=== PATIENT | male | born 1975 | race Caucasian/White ===

== ENCOUNTER 2022-04-07 12:55 | Outpatient (CLI) | payer OTHER, SELFPAY ==
--- OUTSIDE RECORDS SUMMARY | 2022-04-07 13:02 | XMS_ITS | Encounter Summary ---
:1975 Author Organization [facility] Address [address] [place] [address] Care Team Providers Name Role Phone Unavailable Primary Care Provider Unavailable Reason for Visit Reason Onset Date Comments Outpatient COVID-19 Testing 01/23/2020 Encounter Details Date Type Department Care Team Description 01/23/2020 External Outreach Department of Pascual Morataya Infect ion Upper Internal Medicine in J, D.O. Respiratory ([place], [place] [address] Dx) [address] [place] [phone] Social History Tobacco Use Types Packs/Day Years Used Date Smoking Tobacco: Never Assessed Sex Assigned at Date Recorded Not on file documented as of this encounter Progress Notes Hilary Ibarra, JesusP.N. - 01/23/2020 9:15 AM CDT Encounter created for the drive-through COVID-19 testing. documented in this encounter Plan of Treatment Not on filedocumented as of this encounter Procedures Procedure Name Priority Date/Time Associated Diagnosis Comme nts SARS CORONAVIRUS-2 Routine 01/23/2020 10:31 AM Infection Upper Results for this RNA, V CDT Respiratory procedure are i n the results section. documented in this encounter Results SARS Coronavirus-2 RNA, V Symptomatic (01/23/2020 10:31 AM CDT) [facility] Method Time Signature SARS-CoV-2 Swab, 01/23/2020 MKTO Specimen Nasopharynx 8:27 PM CDT Source SARS CoV-2 Undetected Undetected 01/23/2020 SULLY RNA, TMA 8:27 PM CDT Comment: SARS-CoV-2 RNA absent. This result does not rule out COVID-19 in the patient, as the sensitivity of the test depends o n the timing of the specimen collection and the quality of the specim en. Result should be correlated with patient's history and clinical presentat ion. ----ADDITIONAL INFORMATION---- This test is performed using the Aptima SARS-CoV-2 assay ([employer] which has received Emergency Use Authori zation (EUA) by the U.S. Food and Drug Administration. Fact sheets for this Emergency Use Autho rization (EUA) assay can be found at the following links: For Healthcare Providers: https://www.[employer] a.gov/media/013594/download For Patients: https://www.fda.gov/media/ 629797/download Specimen Anatomical Collection Method Collection Time Receive d Time (Source) Location / / Volume Laterality Varies 01/23/2020 10:31 01/23/2020 2:14 (Nasopharynx) AM CDT PM CDT Pascual Morataya D.O. LAB MICROBIOLOGY - GENERAL O RDERABLES Performing Organization Address City/State/ZIP Code Phon e Number [facility]- [address] [place] [id number] [place] [address] [place] [address] System in [address] documented in this encounter Visit Diagnoses Diagnosis Infection Upper Respiratory - Primary documented in this encounter Additional Health Concerns Infection Onset Date Last Indicated Resolved Time COVID19 Pending 01/23/2020 01/23/2020 01/23/2020 8:27 PM CDT documented as of this encounter
--- OUTSIDE RECORDS SUMMARY | 2022-04-07 13:02 | XMS_ITS | Encounter Summary ---
:1975 Author Organization [facility] Address [address] [place] [address] Care Team Providers Name Role Phone Unavailable Primary Care Provider Unavailable Reason for Visit Reason Comments COVID Inquiry Encounter Details Date Type Department Care Team Description 04/27/2020 Clinical Communication Central Appointment PRINCESS Toscano Office in [facility] [address] [place] [address] Social History Tobacco Use Types Packs/Day Years Used Date Smoking Tobacco: Never Assessed Sex Assigned at Date Recorded Not on file documented as of this encounter Miscellaneous Notes Telephone Encounter - Makeda Hernandez - 04/27/2020 1:26 PM SENIOR INDUSTRIAL ENGINEER COVID DOS/PASS Screening What is the patient requesting?: COVID-19 Testing Only (End screening - follow local process) Plan: Endpoint recommendation: Testing indicated, sent patient to [facility] located at [address] [place] [address]. The entrance is on the north side of the building. A staff member will noah you access to get inside. You must call [phone] for an appointment time.Testing hours are Daily 9 am to 7 pm and Please avoid using public transportation per CDC recommendation. If you do not have personal transportation please self-quarantine until a personal transportation option is available. *Reminder if sending patient for testing in T or [facility], an email notification is required. OR INDUSTRIAL ENGINEER documented in this encounter Plan of Treatment Not on filedocumented as of this encounter Visit Diagnoses Not on filedocumented in this encounter
--- OUTSIDE RECORDS SUMMARY | 2022-04-07 13:02 | XMS_ITS | Encounter Summary ---
:1975 Author Organization [facility] Address [address] [place] [address] Care Team Providers Name Role Phone Unavailable Primary Care Provider Unavailable Encounter Details Date Type Department Care Team Description 04/05/2020 Clinical Communication Central Appointment Line, Covid Help Office in [place], [place] [address] [place] [address] Social History Tobacco Use Types Packs/Day Years Used Date Smoking Tobacco: Never Assessed Sex Assigned at Date Recorded Not on file documented as of this encounter Plan of Treatment Not on filedocumented as of this encounter Visit Diagnoses Not on filedocumented in this encounter
--- OUTSIDE RECORDS SUMMARY | 2022-04-07 13:02 | XMS_ITS | Encounter Summary ---
:1975 Author Organization [facility] Address [address] [place] [address] Care Team Providers Name Role Phone Unavailable Primary Care Provider Unavailable Reason for Visit Reason Comments COVID Nurse Line Encounter Details Date Type Department Care Team Description 04/27/2020 Clinical Communication Division of Sheila Us Nurse Anuja [facility] L, R.NMargot [facility] [place] [address] [facility], in [facility] [phone] [place] [phone] [address] [facility] (Work) [place] [address] Social History Tobacco Use Types Packs/Day Years Used Date Smoking Tobacco: Never Assessed Sex Assigned at Date Recorded Not on file documented as of this encounter Miscellaneous Notes Telephone Encounter - Sheila Us REdd - 04/27/2020 1:33 PM CST COVID-19 Nurse Line Screening ASSESSMENT COVID 19 Screening Have you had close contact with a person who has a LABORATORY CONFIRMED case of COVID-19 in the past14 days?: No - Continue screening. Over the last 48 hours have you had any of the following symptoms that are not related to an existing condition?: New sore throat, New myalgias (muscle aches) Do you have any urgent symptoms?: None (Continue Screening) Has the patient had COVID19 diagnosed with a PCR test in the last 45 days? : No (End Screening- Patient Meets Criteria for Testing PLAN Endpoint recommendation: Screening positive, testing indicated, advised to be swabbed for COVID-19, sent to [facility] located at [address] [place] [address]. The entrance is on the north side of the building. A staff member will noah you access to get inside. You must call [phone] for an appointment time.Testing hours are Daily 9 am to 7 pm and Please avoid using public transportation per CDC recommendation. If you do not have personal transportation please self- quarantine until a personal transportation option is available. Care Points provided: STANDARD PRECAUTIONS FOR ALL PATIENTS: Wash hands often with soap and water for at least 20 seconds, especially after blowing your nose, coughing, sneezing, or having been in a public place. If soap and water aren't available, use a hand director enterprise data architecture that contains at least 60% alcohol. Avoid close contact with anyone who may be exhibiting respiratory symptoms such as coughing and sneezing. Avoid touching your eyes, nose and mouth. Clean and disinfect frequently touched surfaces daily. Cover your mouth and nose with a cloth face cover when around others or in public. The cloth face cover is not a substitute for social distancing. Continue to keep about 6 feet between yourself andothers. Monitor for symptoms. Do not take your temperature within 30 minutes of exercise. If your test or screen is negative and new symptoms develop please contact your provider if it has been greaterthan 72 hours since you were tested. Educational Resource: https://www.cdc.gov/coronavirus/2019-ncov/ dtsechd-vgivkgy-icfd/index.html RECOMMENDATIONS TESTING CRITERIA IS MET: Stay home except to get medical care. Quarantine for 14 days if exposed to someone with a laboratory confirmed case of COVID-19 exposure regardless of your test results. Avoid public areas and public transportation. Separate yourself from other people and stay in a specific sick room if possible. Wear a cloth face covering, over your nose and mouth if youmust be around other people even at home). Cover your nose and mouth when coughing or sneezing. Contact employer/occupational health department to notify them that they are being tested. Seek emergent care if any of the following occur: 1) Trouble breathing, 2) Bluish lips or face, 3) Persistent pain or pressure in the chest, 4) Newly confused or unable to stay alert and awake. Notify appropriate care provider if any new or worsening symptoms. You may need re-testing if it has been greater than 72 hours after a negative COVID- 19 test result. Education Resources: https://www.cdc.gov/coronavirus/2019- ncov/hz-mxd-egw-sick/dcmmv-euqh-iwbr.html SELF CARE FOR ALL PATIENTS: Take breaks from watching, reading, or listening to news stories. Make time to unwind. Try to do some other activities you enjoy. Connect with others. Be creative in keepingconnected with loved ones, especially those at high risk. Try healthy coping strategies such as meditation, relaxation, exercise, healthy eating habits, and avoid alcohol and drugs. Education: Patient/caregiver able to teach back Patient agreeable to plan of care: Yes The following references were used: [facility] novel coronavirus (COVID- 19) resources Nursing judgement MATIC PRESS HAND documented in this encounter Plan of Treatment Not on filedocumented as of this encounter Visit Diagnoses Not on filedocumented in this encounter
--- OUTSIDE RECORDS SUMMARY | 2022-04-07 13:02 | XMS_ITS | Clinical Summary ---
:1975 Author Organization [facility] Address [address] [place] [address] Care Team Providers Name Role Phone Phi Steward MD Primary Care Provider Source Comments You are receiving this document as you are listed as the primary care provider,follow-up provider, or the patient has been referred to you for consultation.This is in compliance with the Medicare and Medicaid EHR Incentive Program,which states Providers who transition their patient to another setting of careor provider of care or refers their patient to another provider of care shouldprovide summarycare record for each transition of care or referral. [employer] [employer] Allergies No known active allergies Medications Medication Sig Dispensed Refills Start Date End Date Status traZODone (DESYREL) 50 Take 0.5-2 Tabs by 60 Tab 11 03/18/20 16 Active MG tablet mouth at bedtime as needed for Sleep. Take 30 min. before bed. OK to give 90 day rx with 3 refills. Additional Information Patient not taking. Reported on 08/03/2017 sildenafil (REVATIO) 20 MG Take 1 to 5 tabs qday 30 Tab 7 0 07/12/2017 Active tablet prn. DO NOT SEND A PRIOR AUTH. FOR THIS MEDICINE. busPIRone (BUSPAR) 10 MG tablet Take 1 Tab by mouth 60 Tab 11 08/03/2017 Active two times daily as needed. 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 Elevated blood pressure reading without diagnosis of h ypertension 11/05/2004 Overview: LW Onset: [id number] ; Elevated Blood Pressure Immunizations Name Administration Dates Next Due Influenza IIV4 (Quadrivalent) 0.5mL (31482) 08/03/2017, 11/2015 Td 01/14/2002 Tdap 03/18/2016 Social History Tobacco Use Types Packs/Day Years Used Date Smoking Tobacco: Never Smokeless Tobacco: Never Alcohol Use Standard Drinks/Week Comments Yes 0 (1 standard drink = 0.6 oz pure alcoho l) on weekends 5 drinks Sex Assigned at Date Recorded Not on file Last Filed Vital Signs Vital Sign Reading Time Taken Comments Blood Pressure 134/88 08/03/2017 8:56 AM TRADEMARK PARALEGAL Pulse 80 08/03/2017 8:56 AM [facility]ARK [facility] Temperature 36.7 ??C (98.1 ??F) 11/25/2012 4:11 PM CDT Respiratory Rate 16 11/25/2012 4:11 PM CDT Oxygen Saturation - - Inhaled Oxygen Concentration - - Weight 114.6 kg (252 lb 9.6 oz) 08/03/2017 8:56 AM TR[facility]ARK [facility] Height 185.4 cm (6' 1) 08/03/2017 8:56 AM [facility]ARK [facility] Body Mass Index 33.33 08/03/2017 8:56 AM [facility]EMARK PARALEGAL Plan of Treatment Health Maintenance Due Date Last Done Comments Colon Cancer Screening Plan 1975 Due Hep C Screening (Preventive 1975 Services) HepB (1) 1975 COVID-19 Vaccine (#1) 05/09/1976 HIV Screening (Preventive 1991 Services) Adult Preventive Visit 08/03/2018 08/03/2017, 03/18/2016 Influenza (#1) 2022 08/03/2017, 03/18/2016 Cholesterol 08/03/2022 08/03/2017, 04/01/2016, 11/02/2004 Zoster/Shingles (1 of 2) 11/06/2025 DTaP/Tdap/Td (2 - Tdap) 03/18/2026 03/18/2016, 01/14/2002 HepA Aged Out No longer eligib le based on patient's age to complete this to pic Hib Aged Out No longer eligib le based on patient's age to complete this to pic IPV (Polio) Aged Out No longer eligib le based on patient's age to complete this to pic MCV4 Aged Out No longer eligib le based on patient's age to complete this to pic Pneumococcal Aged Out No longer eligib le based on patient's age to complete this to pic Insurance Payer Benefit Subscriber ID Effective Phone Address Type Plan / Dates Group [facility] [id number] 2018-Pres [phone] [phone] [place] [address] Andres Alvarez Personal/Famil Self 1975 [address] [phone] Tigre [place] (Work) [address] Care Teams Transformation Lead Relationship Specialty Start Date End Date Phi Steward MD PCP - General 09/14/[address] [place] [address] [place] [address]
--- OUTSIDE RECORDS SUMMARY | 2022-04-07 13:02 | XMS_ITS | Clinical Summary ---
:1975 Author Organization [facility] Address [address] [place] [address] Care Team Providers Name Role Phone Unavailable Primary Care Provider Unavailable Source Comments Patient records contain information from all sites at [facility]. For routine questions regarding patient records, call [phone] during business hours, M-F 8:00 AM - 5:00 PM Central Time. Record requests for emergency care only can be directed to [phone] at any time.[facility] Social History Tobacco Use Types Packs/Day Years Used Date Smoking Tobacco: Never Assessed Sex Assigned at Date Recorded Not on file Plan of Treatment Health Maintenance Due Date Last Done Comments CT Colonography 1975 Cologuard 1975 Colonoscopy 1975 Colorectal Cancer Screening 1975 Creatinine Level 1975 FIT 1975 Fasting Glucose for 1975 Diabetes Screening HIV Screening 1975 Hepatitis B Vaccines (1 of 1975 3 - 3-dose series) Hepatitis C Screening 1975 Lipid (Cholesterol) 1975 Screening Potassium Level 1975 Sodium Level 1975 COVID-19 Vaccine (3 - 06/06/2021 04/11/2021, 09/04/2020 Booster for Luis series) Depression Screening 06/13/2021 (Annual PHQ-2) Influenza Vaccine (#1) 2022 04/01/2021, 04/08/2020, 04/10/2019, Additional history exists DTaP,Tdap,and Td Vaccines 03/18/2026 03/18/2016, 01/14/2002 (2 - Td or Tdap) Pneumococcal vaccine (0-64 Aged Out No lo nger eligible years) based on patient 's age to complete this topic Insurance Payer Benefit Plan / Subscriber ID Effective Phone Address T ype Group Dates PREFERREDONE PREFERREDONE [id number] 2019-Pre [phone] PPO ADMINISTRATIVE ADMINISTRATIVE sent [phone] SERVICES SERVICES [place] [phone]
--- OUTSIDE RECORDS SUMMARY | 2022-04-07 13:02 | XMS_ITS | Encounter Summary ---
:1975 Author Organization [facility] Address [address], [place] [address] Care Team Providers Name Role Phone Phi Steward MD Primary Care Provider Encounter Details Date Type Department Care Team Description 08/04/2017 Notes/Orders Phi Craven, Erect ile dysfunction, Medicine unspecified erectile [address] Ng dysfunction type [place] [address] [place] (Primary Dx) [phone] [address] Social History Tobacco Use Types Packs/Day Years Used Date Smoking Tobacco: Never Smokeless Tobacco: Never Alcohol Use Standard Drinks/Week Comments Yes 0 (1 standard drink = 0.6 oz pure alcoho l) on weekends 5 drinks Sex Assigned at Date Recorded Not on file documented as of this encounter Plan of Treatment Not on filedocumented as of this encounter Visit Diagnoses Diagnosis Erectile dysfunction, unspecified erecti le dysfunction type - Primary documented in this encounter Care Teams Tuck Pointer Helper Relationship Specialty Start Date End Date Phi Steward MD PCP - General 09/14/[address] [place] [address] [address] documented as of this encounter
--- OUTSIDE RECORDS SUMMARY | 2022-04-07 13:02 | XMS_ITS | Encounter Summary ---
:1975 Author Organization [facility] Address [address] [place] [address] Care Team Providers Name Role Phone Unavailable Primary Care Provider Unavailable Encounter Details Date Type Department Care Team Description 04/27/2020 Admin Visit Department of Family Medicine, [address] [address] [facility] [phone] Social History Tobacco Use Types Packs/Day Years Used Date Smoking Tobacco: Never Assessed Sex Assigned at Date Recorded Not on file documented as of this encounter Plan of Treatment Not on filedocumented as of this encounter Visit Diagnoses Not on filedocumented in this encounter Additional Health Concerns Infection Onset Date Last Indicated Resolved Time COVID19 Pending 04/27/2020 04/27/2020 04/28/2020 11:09 PM ACCORDION TUNER documented as of this encounter
--- OUTSIDE RECORDS SUMMARY | 2022-04-07 13:02 | XMS_ITS | Encounter Summary ---
:1975 Author Organization [facility] Address [address] [place] [address] Care Team Providers Name Role Phone Unavailable Primary Care Provider Unavailable Reason for Visit Reason Onset Date Comments Outpatient COVID-19 Testing 04/27/2020 Encounter Details Date Type Department Care Team Description 04/27/2020 External Outreach Department of Family Martina Sanabria Infection Upper Medicine, Eitan Vazquez APRN, Respirato ry (Primary Clinic, in [place], Sindy, M.S .N. Dx) [place] [address] [address] [facility] [address] [place], [place] [phone] Social History Tobacco Use Types Packs/Day Years Used Date Smoking Tobacco: Never Assessed Sex Assigned at Date Recorded Not on file documented as of this encounter Progress Notes Martina Sanabria APRN, C.NMilan, M.S.N. - 04/27/2020 1:53 PM CST Encounter created for the drive-through COVID-19 testing. AREA NETWORK SYSTEMS ADMINISTRATOR documented in this encounter Plan of Treatment Not on filedocumented as of this encounter Procedures Procedure Name Priority Date/Time Associated Comments Diagnosis SARS CORONAVIRUS 2 Routine 04/27/2020 3:56 PM Res ults for this PCR DETECT, V WIDE AREA NETWORK SYSTEMS ADMINISTRATOR procedure are in the results section. documented in this encounter Results SARS Coronavirus 2 RNA Detection (04/27/2020 3:56 PM WIDE AREA NETWORK SYSTEMS ADMINISTRATOR) [facility] Method Time Signature SARS-CoV-2 Swab, 04/30/2020 [facility] Specimen Nasopharynx 2:16 AM WIDE AREA NETWORK SYSTEMS ADMINISTRATOR Source SARS-CoV-2 Undetected Undetected 04/30/2020 [facility] RNA by PCR 2:16 AM WIDE AREA NETWORK SYSTEMS ADMINISTRATOR Comment: SARS-CoV-2 RNA absent. This result does not rule out COVID-19 in the patient, as the sensitivity of the test depends o n the timing of the specimen collection and the quality of the specim en. Result should be correlated with patient's history and clinical presentat ion. ----ADDITIONAL INFORMATION---- This PCR test was performed using the BeQuan SARS-CoV-2 assay ([employer] on the kayleigh [employer] System under emergency use authorization (EUA) by the U.S. Food and Drug Administ ration. Fact sheets for this assay can be found at the following links: For Healthcare Providers: https://www.[employer] a.gov/media/998028/download For Patients: https://www.fda.gov/media/ 826258/download Specimen (Source) Anatomical Collection Method Collection Time Re ceived Time Location / / Volume Laterality Varies 04/27/2020 3:56 PM WIDE AREA NETWORK SYSTEMS ADMINISTRATOR Narrative [facility] - 04/30/2020 2:16 AM WIDE AREA NETWORK SYSTEMS ADMINISTRATOR Specimen Information: Specimen ID: [id number] Specimen Type: Varies Specimen Collection Start Date: 020 ??3:56 PM Specimen ID: [id number] Specimen Type: Varies Specimen Collection Start Date: 020 ??8:42 AM Specimen Received Date: 04/29/2020 ??8: 42 AM Martina Sanabria APRN CMargotNMilan, M.S.N. LAB MICROBIOLOGY - GENERAL ORDERABLES Performing Organization Address City/State/ZIP Code Phon e Number [facility] [address] [place] [address] [place] [address] Laboratory Medicine and Pathology [address] [place] [address] Dr. MANCUSO documented in this encounter Visit Diagnoses Diagnosis Infection Upper Respiratory - Primary documented in this encounter Additional Health Concerns Infection Onset Date Last Indicated Resolved Time COVID19 Pending 04/27/2020 04/27/2020 04/28/2020 11:09 PM WIDE AREA NETWORK SYSTEMS ADMINISTRATOR documented as of this encounter
--- OUTSIDE RECORDS SUMMARY | 2022-04-07 13:02 | XMS_ITS | Encounter Summary ---
:1975 Author Organization [facility] Address [address] [place] [address] Care Team Providers Name Role Phone Unavailable Primary Care Provider Unavailable Reason for Visit Reason Comments COVID Nurse Line Encounter Details Date Type Department Care Team Description 04/05/2020 Clinical Communication Division of Shira Oseguera ID Nurse Line [facility] R, R.N. [facility] [place] [address] [facility] in [facility] [phone] [place] [phone] [address] [facility] (Work) [place] [address] Social History Tobacco Use Types Packs/Day Years Used Date Smoking Tobacco: Never Assessed Sex Assigned at Date Recorded Not on file documented as of this encounter Miscellaneous Notes Telephone Encounter - Shira Oseguera R, R.N. - 04/05/2020 9:50 AM CDT COVID-19 Nurse Line Screening ASSESSMENT COVID 19 Screening Have you had close contact with a person who has a LABORATORY CONFIRMED case of COVID-19 in the past14 days?: No - Continue screening. In the last 48 hours have you had any of the following symptoms?: New headache Do you have any urgent symptoms?: None (Continue Screening) Has the patient had COVID19 diagnosed with a PCR test in the last 90 days? : No (End Screening- Patient Meets Criteria for Testing PLAN Endpoint recommendation: Screening positive, testing indicated, advised to be swabbed for COVID-19, sent to [facility] located [address] to back of the clinic; cannot access from main parking lot. Testing hours are M-F 10 am to 5 pm and Sat-Sun 9 am to 2 pm. When you arrive stay in your car and someone will direct you. , If it is currently after hours, please report to the testing site when it is next open. and Please avoid using public transportation per CDC recommendation.If you do not have personal transportation please self-quarantine until a personal transportation option is available. Care Points provided: STANDARD PRECAUTIONS FOR ALL PATIENTS: Wash hands often with soap and water for at least 20 seconds, especially after blowing your nose, coughing, sneezing, or having been in a public place. If soap and water aren't available, use a hand non destructive testing inspector that contains at least 60% alcohol. Avoid [...] since you were tested. Educational Resource: https://www.cdc.gov/coronavirus/2019-ncov/ rsinrya-oviuwlv-jajb/index.html RECOMMENDATIONS TESTING CRITERIA IS MET: Stay home [...] COVID- 19 test result. Education Resources: https://www.cdc.gov/coronavirus/2019- ncov/at-iwp-cwh-sick/jebgd-ofmb-sppu.html SELF CARE FOR ALL PATIENTS: Take breaks [...] care: Yes The following references were used: [facility] novel coronavirus (COVID- 19) resources CDC web site https://www.cdc.gov/coronavirus/2019-ncov/summary.html Nursing judgement documented in this encounter Plan of Treatment Not on filedocumented as of this encounter Visit Diagnoses Not on filedocumented in this encounter
--- OUTSIDE RECORDS SUMMARY | 2022-04-07 13:02 | XMS_ITS | Encounter Summary ---
:1975 Author Organization [facility] Address [address], [place] [address] Care Team Providers Name Role Phone Phi Steward MD Primary Care Provider Reason for Visit Reason Comments Refill hydroCHLOROthiazide (ORETIC) 25 MG tablet [Pharmacy Med Name: HYDROCHLOROTHIAZIDE 25MG TAB S] Encounter Details Date Type Department Care Team Description 09/18/2018 Refill Phi Craven, Refil l (hydroCHLOROthiazide Medicine (ORETIC) [address] MG [address] [[facility] [place] [address] [facility] HYDROCHLOROTHIAZIDE 25MG [phone] [id number] TABS]) Social History Tobacco Use Types Packs/Day Years Used Date Smoking Tobacco: Never Smokeless Tobacco: Never Alcohol Use Standard Drinks/Week Comments Yes 0 (1 standard drink = 0.6 oz pure alcoho l) on weekends 5 drinks Sex Assigned at Date Recorded Not on file documented as of this encounter Nursing Notes Shruthi Zhou - 09/19/2018 10:48 AM CDT PRINTED appointment reminder letter sent ERT Shiloh Kapoor RN - 09/18/2018 6:38 PM CDT OFFICE APPOINTMENT NEEDED Please notify patient to schedule an appointment within 30 days. Requested Prescriptions Pending Prescriptions Disp Refills ??? hydroCHLOROthiazide (ORETIC) 25 MG tablet [Pharmacy Med Name: HYDROCHLOROTHIAZIDE 25MG TABS] 90 Tablet 0 Sig: TAKE ONE TABLET BY MOUTH EVERY DAY Interface, Out Surescripts Prov Query - 09/18/2018 5:02 PM CDT hydroCHLOROthiazide (ORETIC) 25 MG tablet [Pharmacy Med Name: HYDROCHLOROTHIAZIDE 25MG TABS] Medication started: 06/18/2014 Last ordered by PHI STEWARD J: 06/15/2018 (95 days ago) QTY: 90, Refills: 0, Sig: take 1 tablet by mouth daily. (changed but equivalent) -> Refill x 3 months (courtesy refill. overdue for an office visit, Cr check, K check and Na check) Last qualifying visit: 08/03/2017 (with PHI STEWARD) Next scheduled visit: None SBP: 134 mm Hg on 08/03/2017 DBP: 88 mm Hg on 08/03/2017 Cr: 1.04 mg/dL on 08/03/2017 Na: 140 mEq/L on 08/03/2017 K: 3.7 mEq/L on 08/03/2017 PATIENT IS DUE FOR: - CR (Sent to [facility]) - K (Sent to [facility]) - NA (Sent to [facility]) Powered by [employer], Reference: [id number], 09/18/2018 5:02:51 PM CDT, Pool: NITO PRIMARY CARE REFILL ([id number]) documented in this encounter Plan of Treatment Not on filedocumented as of this encounter Visit Diagnoses Not on filedocumented in this encounter Care Teams Tube Buffer Relationship Specialty Start Date End Date Phi Steward MD PCP - General 09/14/10 [address] [place] [id number] documented as of this encounter
--- OUTSIDE RECORDS SUMMARY | 2022-04-07 13:02 | XMS_ITS | Encounter Summary ---
:1975 Author Organization [facility] Address [address] [place] [address] Care Team Providers Name Role Phone Unavailable Primary Care Provider Unavailable Reason for Visit Reason Onset Date Comments Outpatient COVID-19 Testing 04/05/2020 Encounter Details Date Type Department Care Team Description 04/05/2020 External Outreach Department of Pascual Morataya Infect ion Upper Internal Medicine in J, D.O. Respiratory ([place], [place] [address]) [address] [place] [phone] Social History Tobacco Use Types Packs/Day Years Used Date Smoking Tobacco: Never Assessed Sex Assigned at Date Recorded Not on file documented as of this encounter Progress Notes Andree Henriquez R.N. - 04/05/2020 10:08 AM CDT Encounter created for the drive-through COVID-19 testing. documented in this encounter Plan of Treatment Not on filedocumented as of this encounter Procedures Procedure Name Priority Date/Time Associated Diagnosis Comme nts SARS CORONAVIRUS-2 Routine 04/05/2020 11:25 AM Infection Upper Results for this RNA, V CDT Respiratory procedure are i n the results section. documented in this encounter Results SARS Coronavirus-2 RNA, V Symptomatic (04/05/2020 11:25 AM CDT) [facility] Method Time Signature SARS-CoV-2 Swab, 04/06/2020 MKTO Specimen Nasopharynx 6:43 PM CDT Source SARS CoV-2 Undetected Undetected 04/06/2020 SULLY RNA, TMA 6:43 PM CDT Comment: SARS-CoV-2 RNA absent. This result does not rule out COVID-19 in the patient, as the sensitivity of the test depends o n the timing of the specimen collection and the quality of the specim en. Result should be correlated with patient's history and clinical presentat ion. ----ADDITIONAL INFORMATION---- This test is performed using the Aptima SARS-CoV-2 assay ([employer] which has received Emergency Use Authori zation (EUA) by the U.S. Food and Drug Administration. Fact sheets for this Emergency Use Autho rization (EUA) assay can be found at the following links: For Healthcare Providers: https://www.[employer] a.gov/media/318491/download For Patients: https://www.fda.gov/media/ 454042/download Specimen Anatomical Collection Method Collection Time Receive d Time (Source) Location / / Volume Laterality Varies 04/05/2020 11:25 04/05/2020 5:57 (Nasopharynx) AM CDT PM CDT Pascual Morataya D.O. LAB MICROBIOLOGY - GENERAL O RDERABLES Performing Organization Address City/State/ZIP Code Phon e Number [facility]- [address] [place] [phone] [place] [address] [place] [address] [address] documented in this encounter Visit Diagnoses Diagnosis Infection Upper Respiratory - Primary documented in this encounter Additional Health Concerns Infection Onset Date Last Indicated Resolved Time COVID19 Pending 04/05/2020 04/05/2020 04/06/2020 6:44 PM CDT documented as of this encounter
--- OUTSIDE RECORDS SUMMARY | 2022-04-07 13:02 | XMS_ITS | Encounter Summary ---
:1975 Author Organization [facility] Address [address] [place] [address] Care Team Providers Name Role Phone Unavailable Primary Care Provider Unavailable Encounter Details Date Type Department Care Team Description 10/07/2020 Orders Only [facility] PCP TH Sa caitlin Mendes M.D. [address] [place], [place] [phone] (Wo rk) Social History Tobacco Use Types Packs/Day Years Used Date Smoking Tobacco: Never Assessed Sex Assigned at Date Recorded Not on file documented as of this encounter Plan of Treatment Not on filedocumented as of this encounter Visit Diagnoses Not on filedocumented in this encounter
--- OUTSIDE RECORDS SUMMARY | 2022-04-07 13:02 | XMS_ITS | Encounter Summary ---
:1975 [facility] Address [address], [place] [address] Care Team Providers Name Role Phone Phi Steward MD Primary Care Provider Encounter Details Date Type Department Care Team Description 09/18/2018 Refill Order [facility] Phi Champagne MD [address] [facility] [place] [address] [place] [id number] (Wo rk) Social History Tobacco Use Types Packs/Day Years Used Date Smoking Tobacco: Never Smokeless Tobacco: Never Alcohol Use Standard Drinks/Week Comments Yes 0 (1 standard drink = 0.6 oz pure alcoho l) on weekends 5 drinks Sex Assigned at Date Recorded Not on file documented as of this encounter Nursing Notes Jo England - 09/19/2018 9:54 AM CDT Labs to be addressed at future visit. Interface, Out Surescripts Prov Query - 09/18/2018 5:02 PM CDT SCHEDULE THE FOLLOWING: - CR BY: Now (Due as of 07/29/2018 for hydroCHLOROthiazide (ORETIC) 25 MG tablet) - K BY: Now (Due as of 07/29/2018 for hydroCHLOROthiazide (ORETIC) 25 MG tablet) - NA BY: Now (Due as of 07/29/2018 for hydroCHLOROthiazide (ORETIC) 25 MG tablet) - LAST QUALIFYING VISIT WITH PHI STEWARD: 08/03/2017 - NEXT SCHEDULED VISIT: None - NEXT LAB APPOINTMENT: None Powered by [employer], Reference: [id number], 09/18/2018 5:02:51 PM CDT, Pool: NITO PRIMARY CARE REFILL ([id number]) documented in this encounter Plan of Treatment Not on filedocumented as of this encounter Visit Diagnoses Diagnosis Encounter for long-term (current) use of medications - Primary Encounter for long-term (current) use of other medications documented in this encounter Care Teams Solar/Renewable Energy Sales Relationship Specialty Start Date End Date Phi Steward MD PCP - General 09/14/[address] [place] [address] documented as of this encounter
--- OUTSIDE RECORDS SUMMARY | 2022-04-07 13:02 | XMS_ITS | Encounter Summary ---
:1975 [facility] Address [address] [place] [address] Care Team Providers Name Role Phone Phi Steward MD Primary Care Provider Reason for Visit Reason Onset Date Comments Refill 06/15/2018 hydroCHLOROthiazide (ORETIC) 25 MG tablet Encounter Details Date Type Department Care Team Description 06/15/2018 Refill [facility] Phi Steward, Refil l Medicine (hydroCHLOROthiazide [address] (ORETIC) 25 MG tablet) [place] [address] [place] [phone] (Wo rk) Social History Tobacco Use Types Packs/Day Years Used Date Smoking Tobacco: Never Smokeless Tobacco: Never Alcohol Use Standard Drinks/Week Comments Yes 0 (1 standard drink = 0.6 oz pure alcoho l) on weekends 5 drinks Sex Assigned at Date Recorded Not on file documented as of this encounter Nursing Notes Mari Lennon RN - 06/15/2018 1:53 PM CST Renewed medication per medication refill protocol. Requested Prescriptions Pending Prescriptions Disp Refills hydroCHLOROthiazide (ORETIC) 25 MG tablet 90 Tablet 0 Sig: Take 1 Tablet by mouth daily. [place] [employer] Interface, Out Surescripts Prov Query - 06/15/2018 11:09 AM CST hydroCHLOROthiazide (ORETIC) 25 MG tablet Medication started: 06/18/2014 Last ordered by PHI STEWARD: 08/03/2017 (316 days ago) QTY: 90, Refills: 3, Sig: take 1 tab by mouth daily. (changed but equivalent) -> Refill x 3 months (until due for an office visit, Cr check, K check and Na check) Last qualifying visit: 08/03/2017 (with PHI STEWARD) Next scheduled visit: None SBP: 134 mm Hg on 08/03/2017 DBP: 88 mm Hg on 08/03/2017 Cr: 1.04 mg/dL on 08/03/2017 Na: 140 mEq/L on 08/03/2017 K: 3.7 mEq/L on 08/03/2017 Powered by [employer], Reference: [id number], 06/15/2018 11:09:03 AM Bharath RODRIGUEZ: PN REFILL WIZARD ADMIN ([id number]) Phi Warren - 06/15/2018 11:08 AM CST Medications - Refill Request (able to re-order) Name of prescribing clinician: Phi Steward MD Additional comments (related to the above concern): Pt is totally out of medication For this refill, patient would like it filled at the pharmacy listed in Meds & Orders. (Verify the pharmacy patient would like to use for this request is highlighted in blue in Pharmacy Selection under Meds & Orders) If there are questions regarding your request, is it okay to leave a detailed message on your voicemail? Yes (Advise caller that the PN call back number will end with [phone] or unknown) (Advise caller of turn around time is 2 business days for standard refills and 2 to 5 business days for controlled refills) Please route to: Refill Pool (P [phone]) [facility] ONLY (P [phone]) [place] [employer] documented in this encounter Plan of Treatment Not on filedocumented as of this encounter Visit Diagnoses Not on filedocumented in this encounter Care Teams Director Of Cardiology Relationship Specialty Start Date End Date Phi Steward MD PCP - General 09/14/10 [address] [place] [address] documented as of this encounter
--- OUTSIDE RECORDS SUMMARY | 2022-04-07 13:03 | XMS_ITS | Encounter Summary ---
:1975 Author Organization [facility] Address [address], [place] [address] Care Team Providers Name Role Phone Phi Steward MD Primary Care Provider Encounter Details Date Type Department Care Team Description 02/18/2017 Lab Visit Damien marinelli Chest pain, unspecified [address] type [place] [id number] Social History Tobacco Use Types Packs/Day Years [...] Name Priority Date/Time Associated Diagnosis Comme nts CREATININE / GFR Routine 02/18/2017 9:27 AM Chest pain, Resul ts for this CDT unspecified type procedure a re in the results section. COMPLETE BLOOD Routine 02/18/2017 9:27 AM Chest pain, Results for this COUNT-W/DIFF CDT unspecified type procedure a re in the results section. DIFFERENTIAL Routine 02/18/2017 9:27 AM Results f or this CDT procedure are i n the results section. TSH, SENSITIVE (WITH Routine 02/18/2017 9:27 AM Chest pain, R esults for this REFLEX) CDT unspecified type procedure a re in the results section. ALT (SGPT) Routine 02/18/2017 9:27 AM Chest pain, Results f or this CDT unspecified type procedure a re in the results section. documented in this encounter Results Differential (02/18/2017 9:27 AM CDT) athologist Signature Absolute 5.4 1.8 - 8.0 PN SOFT Neutrophils k/cmm Absolute 1.9 1.1 - 4.0 PN SOFT Lymphocytes k/cmm Absolute 0.4 0.2 - 0.8 PN SOFT Monocytes k/cmm Absolute 0.1 0.0 - 0.5 PN SOFT Eosinophils k/cmm Absolute 0.0 0.0 - 0.2 PN SOFT Basophils k/cmm Specimen Anatomical Collection Method Collection Time Receive d Time (Source) Location / / Volume Laterality 02/18/2017 9:27 AM 7 9:27 CDT AM CDT Narrative PN SOFT - 02/18/2017 9:45 AM CDT Performed at [address] [address] CLIA number [id number] Phi Steward MD LAB_1 Performing Organization Address City[facility] Phon e Number PN SOFT [address] [place] [address] TSH with Free T4 (if TSH Abnormal) (02/18/2017 9:27 AM CDT) athologist Signature Thyroid 2.65 0.30 - PN SOFT Stimulating 4.50 Hormone uIU/mL Specimen Anatomical Collection Method Collection Time Receive d Time (Source) Location / / Volume Laterality 02/18/2017 9:27 AM 7 2:56 CDT PM CDT Narrative PN SOFT - 02/18/2017 4:11 PM CDT Performed at [place] [address] [place] [address] CLIA number [id number] Phi Steward MD LAB_1 Performing Organization Address City[facility] Phon e Number PN SOFT [address] [place] [address] Complete Blood Count-W/Diff (02/18/2017 9:27 AM CDT) athologist Signature White Blood Cell 7.8 3.8 - 11.0 PN SOFT Count k/cmm Red Blood Cell 5.67 4.20 - PN SOFT Count 5.90 m/cmm Hemoglobin 16.7 13.4 - PN SOFT 17.5 g/dL Hematocrit 47.4 39.0 - PN SOFT 51.0 % Mean Corpuscular 83.6 80.0 - PN SOFT Volume 100.0 fL RDW 12.6 11.0 - PN SOFT 15.0 % Platelet Count 272 140 - 450 PN SOFT k/cmm Specimen Anatomical Collection Method Collection Time Receive d Time (Source) Location / / Volume Laterality 02/18/2017 9:27 AM 7 9:27 CDT AM CDT Narrative PN SOFT - 02/18/2017 9:45 AM CDT Performed at [facility], [address] [place] [address] CLIA number [id number] Phi Steward MD LAB_1 Performing Organization Address [facility] Phon e Number PN SOFT [address] [place] [address] ALT (SGPT) (02/18/2017 9:27 AM CDT) [facility] gist Method Time Signature Alanine 32 9 - 55 PN SOFT Aminotransferase U/L Specimen Anatomical Collection Method Collection Time Receive d Time (Source) Location / / Volume Laterality 02/18/2017 9:27 AM 7 2:56 CDT PM CDT Narrative PN SOFT - 02/18/2017 3:39 PM CDT Performed at [place] [address] [place] [address] CLIA number [id number] Phi Steward MD LAB_1 Performing Organization Address [facility] Phon e Number PN SOFT [address] [place] [address] Creatinine / GFR (02/18/2017 9:27 AM CDT) P athologist Signature Creatinine Serum 0.98 0.73 - PN SOFT 1.18 mg/dL Est GFR >60 >60 PN SOFT Am mL/min/1.7 3m2 Est GFR Non-Afr >60 >60 PN SOFT Am mL/min/1.7 3m2 Comment: Normal>60, moderate decrease 30 - 59, se yecenia decrease 15 - 29, renal failure <15 mL/min/1.73 m2 NOTE: ??Choose the eGFR result above ignacio ropriate for the race of the patient. Specimen Anatomical Collection Method Collection Time Receive d Time (Source) Location / / Volume Laterality 02/18/2017 9:27 AM 7 2:56 CDT PM CDT Narrative PN SOFT - 02/18/2017 3:39 PM CDT Performed at [facility], [address] [place] [address] [place] number [id number] Phi Steward MD LAB_1 Performing Organization Address City/State/ZIP Code Phon e Number SOFT [address] [place] [address] [phone] documented in this encounter Visit Diagnoses Diagnosis Chest pain, unspecified type documented in this encounter Care Teams Power Barker Relationship Specialty Start Date End Date Phi Steward MD PCP - General 09/14/10 [address] [place] [id number] documented as of this encounter
--- OUTSIDE RECORDS SUMMARY | 2022-04-07 13:03 | XMS_ITS | Encounter Summary ---
:1975 [facility] Address [address] [place] [address] Care Team Providers Name Role Phone Phi Steward MD Primary Care Provider Reason for Visit Reason Onset Date Comments Refill 07/08/2016 hydrochlorothiazide (ORETIC) 25 MG tablet Encounter Details Date Type Department Care Team Description 07/08/2016 Refill [facility] Phi Steward, Refil l Medicine (hydrochlorothiazide [address] (ORETIC) 25 MG tablet) [place] [address] [place] [phone] (Wo rk) Social History Tobacco Use Types Packs/Day Years Used Date Smoking Tobacco: Never Smokeless Tobacco: Never Alcohol Use Standard Drinks/Week Comments Yes 0 (1 standard drink = 0.6 oz pure alcoho l) on weekends 5 drinks Sex Assigned at Date Recorded Not on file documented as of this encounter Nursing Notes Ned Kowalski, RN - 07/10/2016 11:03 AM CST Further assistance needed to complete refill request Reason: Current order has a 180 day end date Next Steps: Review pended order for accuracy. Sign if appropriate. Document if appt. or lab is needed for further refills. Route to Frontline. pool Requested Prescriptions Pending Prescriptions Disp Refills ??? hydrochlorothiazide (ORETIC) 25 MG tablet 90 Tab 2 Sig: Take 1 Tab by mouth daily. OPERATOR Interface, Out Silverio Prov Query - 07/08/2016 10:54 AM CST hydrochlorothiazide (ORETIC) 25 MG tablet Medication started: 06/18/2014 Last ordered by PHI STEWARD: 03/18/2016 (112 days ago) QTY: 90, Refills: 3, Sig: take 1 tab by mouth daily for 180 days. indications: pn: (changed) -> This medication may not have been authorized by the requested provider. -> The patient is requesting a renewal from a different pharmacy. -> Due to an unreadable sig, manually ensure the patient is due for a renewal. -> The requested sig has changed from the last order. -> Refill x 9 months (until due for an office visit) -> Calculate quantity and refills manually. They could not be estimated due to missing or unreadable information. Last qualifying visit: 03/18/2016 (with PHI STEWARD) Next scheduled visit: None SBP: 154 mm Hg on 03/18/2016 DBP: 105 mm Hg on 03/18/2016 Cr: 1.07 mg/dL on 04/01/2016 Na: 141 mEq/L on 04/01/2016 K: 3.7 mEq/L on 04/01/2016 Powered by [employer], Reference: [id number], 07/08/2016 10:54:09 AM JENNIFER, Pool: NITO PRIMARY CAREREFILL ([id number]) OPERATOR documented in this encounter Plan of Treatment Not on filedocumented as of this encounter Visit Diagnoses Not on filedocumented in this encounter Care Teams Hvac Specialist Relationship Specialty Start Date End Date Phi Steward MD PCP - General 09/14/[address] [place] [address] documented as of this encounter
--- OUTSIDE RECORDS SUMMARY | 2022-04-07 13:03 | XMS_ITS | Encounter Summary ---
:1975 Author Organization [facility] Address [address] [place] [address] Care Team Providers Name Role Phone Phi Steward MD Primary Care Provider Reason for Visit Reason Comments Refill hydroCHLOROthiazide (ORETIC) 25 MG tablet [Pharmacy Med Name: HYDROCHLOROTHIAZIDE TAB 25MG ] Encounter Details Date Type Department Care Team Description 03/21/2017 Refill Phi Craven, Refil sundar (hydroCHLOROthiazide Medicine (ORETIC) [address] [[place]: [place] [address] [facility] [place] HYDROCHLOROTHIAZIDE TAB [phone] [id number] 25MG]) Social History Tobacco Use Types Packs/Day Years Used Date Smoking Tobacco: Never Smokeless Tobacco: Never Alcohol Use Standard Drinks/Week Comments Yes 0 (1 standard drink = 0.6 oz pure alcoho l) on weekends 5 drinks Sex Assigned at Date Recorded Not on file documented as of this encounter Nursing Notes Gilbert Quiroz RN - 03/21/2017 9:47 AM CDT Renewed medication per medication refill protocol. Requested Prescriptions Pending Prescriptions Disp Refills hydroCHLOROthiazide (ORETIC) 25 MG tablet [Pharmacy Med Name: HYDROCHLOROTHIAZIDE TAB 25MG] 90 Tab 0 Sig: TAKE 1 TABLET DAILY Interface, Out Surescripts Prov Query - 03/21/2017 12:34 AM CDT hydroCHLOROthiazide (ORETIC) 25 MG tablet [Pharmacy Med Name: HYDROCHLOROTHIAZIDE TAB 25MG] Medication started: 06/18/2014 Last ordered by PHI STEWARD: 07/12/2016 (252 days ago) QTY: 90, Refills: 2, Sig: take 1 tab by mouth daily. (changed but equivalent) -> Refill x 3 months (until due for a(n) K check and Na check) Last qualifying visit: 02/18/2017 (with PHI STEWARD) Next scheduled visit: None SBP: 144 mm Hg on 02/18/2017 DBP: 90 mm Hg on 02/18/2017 Cr: 0.98 mg/dL on 02/18/2017 Na: 141 mEq/L on 04/01/2016 K: 3.7 mEq/L on 04/01/2016 PATIENT IS DUE FOR: - K (Sent to [facility]) - NA (Sent to [facility]) Powered by [email or web address], Reference: [id number], 03/21/2017 12:34:15 AM CDT, Pool: NITO PRIMARY CAREREFILL ([id number]) documented in this encounter Plan of Treatment Not on filedocumented as of this encounter Visit Diagnoses Not on filedocumented in this encounter Care Teams Waffle Machine Operator Relationship Specialty Start Date End Date Phi Steward MD PCP - General 09/14/[address] [place] [address] documented as of this encounter
--- OUTSIDE RECORDS SUMMARY | 2022-04-07 13:03 | XMS_ITS | Encounter Summary ---
:1975 [facility] Address [address] [place] [address] Care Team Providers Name Role Phone Phi Steward MD Primary Care Provider Encounter Details Date Type Department Care Team Description 04/01/2016 Lab Visit Damien marinelli Screening for hyperlipidemia ; [address] Screening for diabetes lloyd burt; [place] [address] Essential hypertension [phone] Social History Tobacco Use Types Packs/Day Years [...] Name Priority Date/Time Associated Diagnosis Comme nts LIPID PANEL AND Routine 04/01/2016 7:14 Screening for Results for this DIRECT LDL(IF AM CDT hyperlipidemia procedure ar e in NEEDED) the results section. CREATININE / GFR Routine 04/01/2016 7:14 Essential hypertensio n Results for this AM CDT procedure are i n the results section. ELECTROLYTE PANEL Routine 04/01/2016 7:14 Essential hypertensi on Results for this AM CDT procedure are i n the results section. GLUCOSE - FASTING > Routine 04/01/2016 7:14 Screening for diab etes Results for this 8 HRS FASTING AM CDT mellitus procedure are in the results section. documented in this encounter Results Electrolyte Panel (04/01/2016 7:14 AM CDT) P athologist Signature Sodium 141 136 - 145 PN SOFT mmol/L Potassium 3.7 3.5 - 5.2 PN SOFT mmol/L Chloride 106 98 - 109 PN SOFT mmol/L CO2 27 22 - 31 PN SOFT mmol/L Specimen Anatomical Collection Method Collection Time Receive d Time (Source) Location / / Volume Laterality 04/01/2016 7:14 AM 6 9:20 CDT AM CDT Narrative PN SOFT - 04/01/2016 9:38 AM CDT [address] [id number] Phi Steward MD LAB_1 Performing Organization Address [facility] Phon e Number PN SOFT [address] [place] [address] Creatinine (04/01/2016 7:14 AM CDT) athologist Signature Creatinine Serum 1.07 0.73 - PN SOFT 1.18 mg/dL Est [...] Time (Source) Location / / Volume Laterality 04/01/2016 7:14 AM 6 9:20 CDT AM CDT Narrative PN SOFT - 04/01/2016 9:38 AM CDT Performed at [address] [address] CLIA number [id number] Phi Steward MD LAB_1 Performing Organization Address [facility] Phon e Number PN SOFT [address] [place] [address] (ABNORMAL) Glucose (04/01/2016 7:14 AM CDT) athologist Signature Lab Glucose 102 (H) 60 - 100 PN SOFT mg/dL Specimen Anatomical Collection Method Collection Time Receive d Time (Source) Location / / Volume Laterality 04/01/2016 7:14 AM 6 9:20 CDT AM CDT Narrative PN SOFT - 04/01/2016 9:38 AM CDT Performed at [address] [address] CLIA number [id number] Phi Steward MD LAB_1 Performing Organization Address [facility] Phon e Number PN SOFT [address] [place] [address] (ABNORMAL) Lipid Panel - LDLD If Trig High (04/01/2016 7:14 AM CDT) [facility] Method Time Signature Cholesterol 197 0 - 199 PN SOFT mg/dL Triglycerides 208 (H) 4 - 149 PN SOFT mg/dL HDL Cholesterol 43 >39 mg/dL PN SOFT Cholesterol/HDL 4.6 PN SOFT Ratio Screen LDL Calculated 112 19 - 130 PN SOFT mg/dL Length Of Fast 11.0 PN SOFT Specimen Anatomical Collection Method Collection Time Receive d Time (Source) Location / / Volume Laterality 04/01/2016 7:14 AM 6 9:20 CDT AM CDT Narrative PN SOFT - 04/01/2016 9:38 AM CDT Performed at [address] [address] CLIA number [id number] Phi Steward MD LAB_1 Performing Organization Address [facility] Phon e Number PN SOFT [address] [place] [address] documented in this encounter Visit Diagnoses Diagnosis Screening for hyperlipidemia Screening for lipoid disorders Screening for diabetes mellitus Essential hypertension (HRC) Unspecified essential hypertension documented in this encounter Care Teams Senior Merchandiser Relationship Specialty Start Date End Date Phi Steward MD PCP - General 09/14/[address] [place], [place] [address] documented as of this encounter
--- OUTSIDE RECORDS SUMMARY | 2022-04-07 13:03 | XMS_ITS | Encounter Summary ---
:1975 Author Organization [facility] Address [address] [address] Care Team Providers Name Role Phone Phi Steward MD Primary Care Provider Encounter Details Date Type Department Care Team Description 03/21/2017 Refill Order [facility] Phi Champagne MD [address] Pending [facility] To [facility] [place] [address] [place] [id number] (Wo rk) Social History Tobacco Use Types Packs/Day Years Used Date Smoking Tobacco: Never Smokeless Tobacco: Never Alcohol Use Standard Drinks/Week Comments Yes 0 (1 standard drink = 0.6 oz pure alcoho l) on weekends 5 drinks Sex Assigned at Date Recorded Not on file documented as of this encounter Nursing Notes Jo England - 03/21/2017 9:49 AM CDT Labs to be addressed at future visit. Interface, Out Surescripts Prov Query - 03/21/2017 12:34 AM CDT SCHEDULE THE FOLLOWING: - K BY: 03/27/2017 (Coming due as of 03/27/2017 for hydrochlorothiazide (ORETIC) 25 MG tablet) - NA BY: 03/27/2017 (Coming due as of 03/27/2017 for hydrochlorothiazide (ORETIC) 25 MG tablet) - LAST QUALIFYING VISIT WITH PHI STEWARD: 02/18/2017 - NEXT SCHEDULED VISIT: None - NEXT LAB APPOINTMENT: None Powered by [employer], Reference: [id number], 03/21/2017 12:34:16 AM CDT, Pool: NITO PRIMARY CAREREFILL ([id number]) documented in this encounter Plan of Treatment Not on filedocumented as of this encounter Visit Diagnoses Diagnosis Encounter for long-term (current) use of medications - Primary Encounter for long-term (current) use of other medications documented in this encounter Care Teams Dump Motor Operator Relationship Specialty Start Date End Date Phi Steward MD PCP - General 09/14/10 [address] [place] [address] documented as of this encounter
--- OUTSIDE RECORDS SUMMARY | 2022-04-07 13:03 | XMS_ITS | Encounter Summary ---
:[address] [facility] [facility] Address [address] [place] [address] Care Team Providers Name Role Phone Phi Steward MD Primary Care Provider Reason for Visit Reason Comments Refill Encounter Details Date Type Department Care Team Description 08/21/2015 Refill [facility] Phi Champagne MD Refill [address] [place] [address] [place] [address] [phone] (Wo rk) Social History Tobacco Use Types Packs/Day Years Used Date Smoking Tobacco: Never Assessed Sex Assigned at Date Recorded Not on file documented as of this encounter Nursing Notes User, Refillwizard - 08/22/2015 11:00 PM CST VIAGRA 100 mg tablet [Pharmacy Med Name: VIAGRA 100 MG TABLET] - MEDICATION STARTED: 06/18/2014 - LAST REFILLED ON: 06/18/2014, QTY: 6, Refills: 11, Sig: take 0.5-1 tablets by mouth daily as needed for erectile dysfunction. typically effective for 4 to 6 hrs. (changed) - WARNING: This medication may not have been authorized by the requested provider. - REFILL: 6 months (if warnings resolved; manual update required, due to unreadable sig) - RATIONALE: This refill should last until the patient is due for an office visit. - LAST QUALIFYING VISIT WITH PHI STEWARD: 02/21/2015 - NEXT SCHEDULED VISIT: None Powered by [employer], Reference: [id number], 08/21/2015 3:48:41 PM FUR REMODELER, Pool: NITO PRIMARY CARE REFILL ([id number]) REMODELER Pat Kapoor, RN - 08/22/2015 11:00 PM CST Renewed medication per medication refill protocol. Requested Prescriptions Signed Prescriptions Disp Refills ??? sildenafil citrate (VIAGRA) 100 mg tablet 6 tablet 5 Sig: Take 0.5-1 tablets by mouth as needed for Erectile Dysfunction. Authorizing Provider: PHI STEWARD Ordering User: PAT KAPOOR REMODELER documented in this encounter Plan of Treatment Not on filedocumented as of this encounter Visit Diagnoses Not on filedocumented in this encounter Care Teams Permaculture Designer Relationship Specialty Start Date End Date Phi Steward MD PCP - General 09/14/[address] [place] [address] [place] [address] documented as of this encounter
--- OUTSIDE RECORDS SUMMARY | 2022-04-07 13:03 | XMS_ITS | Encounter Summary ---
:1975 Author Organization [facility] Address [address], [place] [address] Care Team Providers Name Role Phone Phi Steward MD Primary Care Provider Reason for Visit Procedure/Equipment (Routine) - Incomplete Specialty Diagnoses / Procedures Referred By Contact Refer red To Contact Diagnoses Chest pain, unspecified type Phi Steward MD Procedures XR Chest [address] [place] [address] Referral ID Status Reason Start Date Expiration Date Visits V isits Requested Authorized [id number] Incomplete 02/18/2017 05/20/2018 1 1 Encounter Details Date Type Department Care Team Description 02/18/2017 Imaging [facility] Phi Steward, Chest pain, unspecified [address] Jeff[address] Parker MD type [place] [address] [address] [phone] [place] [address] (Wo rk) Social History Tobacco Use Types [...] Name Priority Date/Time Associated Diagnosis Comme nts XR CHEST 2 VIEWS Routine 02/18/2017 9:04 AM Chest pain, Resul ts for this CDT unspecified type procedure a re in the results section. documented in this encounter Results XR Chest 2 Views (02/18/2017 9:04 AM CDT) Anatomical Region Laterality Modality Chest, Lung Computed Radiography Specimen (Source) Anatomical Collection Method Collection Time Re ceived Time Location / / Volume Laterality 02/18/2017 8:58 AM CDT Narrative 02/18/2017 9:29 AM CDT COMPARISON: ??None. FINDINGS: ??Two views were obtained. ??T he lungs and costophrenic angles are clear. ??Heart size and pulmonary vascularity are within normal limits. ??There is no evidence of pneumothorax or pleural effusion. Bony thorax is unremarkable. Procedure Note Mat Foote MD - 02/18/2017 COMPARISON: None. FINDINGS: Two views were obtained. The l ungs and costophrenic angles are clear. Heart size and pulmonary vascularity are within normal limits. There is no evidence of pneumothorax or pleural effusion. Bony thorax is unremarkable. Phi Steward MD RAD GD documented in this encounter Visit Diagnoses Diagnosis Chest pain, unspecified type documented in this encounter Care Teams Measurement Department Chief Clerk Relationship Specialty Start Date End Date Phi Steward MD PCP - General 09/14/[address] [place] [address] documented as of this encounter
--- OUTSIDE RECORDS SUMMARY | 2022-04-07 13:03 | XMS_ITS | Encounter Summary ---
:1975 Author [facility] Address [address], [place] [address] Care Team Providers Name Role Phone Phi Steward MD Primary Care Provider Reason for Visit Reason Comments Questions For The Nurse pt out of his BP med which h as Encounter Details Date Type Department Care Team Description 05/27/2017 Telephone [facility] Phi Steward, [facility] ions For The Nurse Medicine MD (pt out of his BP med [address] which has ) [place] [address] [place] [phone] [address] Social History Tobacco Use Types Packs/Day Years Used Date Smoking Tobacco: Never Smokeless Tobacco: Never Alcohol Use Standard Drinks/Week Comments Yes 0 (1 standard drink = 0.6 oz pure alcoho l) on weekends 5 drinks Sex Assigned at Date Recorded Not on file documented as of this encounter Nursing Notes Judy Jerry RN - 05/27/2017 11:37 AM CST Refill request for HCTZ. Qualifying OV 02/18/17. Labs last done 04/01/16 Creatinine was checked at the 02/18/17 OV Orders placed for Sodium and Potassium. Patient aware he has to have done prior to next refill. Meets criteria for RN to do 90 day supply. Since patient is out, he also requests small supply to local pharmacy. Requested Prescriptions Signed Prescriptions Disp Refills ??? hydroCHLOROthiazide (ORETIC) 25 MG tablet 90 Tab 0 Sig: Take 1 Tab by mouth daily. Authorizing Provider: PHI STEWARD Ordering User: JUDY JERRY IMEDIA SERVICES COORDINATOR Víctor Barnard - 05/27/2017 11:22 AM CST Pt calling request to speak to nurse for direction as pt out of his BP med which has and pharmacy will not be able to get to him for approx. 2 weeks. Pt needs meds but does not know what to do.Please advise. IMEDIA SERVICES COORDINATOR documented in this encounter Plan of Treatment Not on filedocumented as of this encounter Visit Diagnoses Diagnosis Elevated blood pressure reading without diagnosis of hypertension - Primary documented in this encounter Care Teams Career Guidance Technician Relationship Specialty Start Date End Date Phi Steward MD PCP - General 09/14/[address] [place], [place] [address] documented as of this encounter
--- OUTSIDE RECORDS SUMMARY | 2022-04-07 13:03 | XMS_ITS | Encounter Summary ---
:1975 Author Organization [facility] Address [address] [address] Care Team Providers Name Role Phone Phi Steward MD Primary Care Provider Encounter Details Date Type Department Care Team Description 08/03/2017 Lab Visit [facility] Hyperglycemia; [address] Hyperlipidemia, unspecified hyperlipidemia type; [place] [address] Essential hypertension [phone] Social History Tobacco Use Types Packs/Day Years [...] Diagnosis Comme nts LIPID PANEL AND Routine 08/03/2017 9:53 Hyperlipidemia, Result s for this DIRECT LDL(IF AM NATIONAL SALES unspecified procedure are in NEEDED) hyperlipidemia type the resu lts section. CREATININE / GFR Routine 08/03/2017 9:53 Essential hypertensio n Results for this AM NATIONAL SALES procedure are i n the results section. ELECTROLYTE PANEL Routine 08/03/2017 9:53 Essential hypertensi on Results for this AM NATIONAL SALES procedure are i n the results section. ALT (SGPT) Routine 08/03/2017 9:53 Hyperlipidemia, Results f or this AM NATIONAL SALES unspecified procedure are i n hyperlipidemia type the resu lts section. GLUCOSE - FASTING > Routine 08/03/2017 9:53 Hyperglycemia Resu lts for this 8 HRS FASTING AM NATIONAL SALES procedure are in the results section. documented in this encounter Results Creatinine / GFR (08/03/2017 9:53 AM NATIONAL SALES) athologist Signature Creatinine Serum 1.04 0.73 - PN SOFT 1.18 mg/dL Est [...] Time (Source) Location / / Volume Laterality 08/03/2017 9:53 AM 8 NATIONAL SALES 12:44 PM NATIONAL SALES Narrative PN SOFT - 08/03/2017 2:12 PM NATIONAL SALES Performed at [address] [address] CLIA number [id number] Phi Steward MD LAB_1 Performing Organization Address City/[facility] Phon e Number PN SOFT [address] [place] [address] Electrolyte Panel (08/03/2017 9:53 AM NATIONAL SALES) athologist Signature Sodium 140 136 - 145 PN SOFT mmol/L Potassium 3.7 3.5 - 5.2 PN SOFT mmol/L Chloride 103 98 - 109 PN SOFT mmol/L CO2 27 22 - 31 PN SOFT mmol/L Specimen Anatomical Collection Method Collection Time Receive d Time (Source) Location / / Volume Laterality 08/03/2017 9:53 AM 8 NATIONAL SALES 12:44 PM NATIONAL SALES Narrative PN SOFT - 08/03/2017 2:12 PM NATIONAL SALES Performed at [address] [address] CLIA number [id number] Phi Steward MD LAB_1 Performing Organization Address [facility] Phon e Number PN SOFT [address] [place] [address] ALT (SGPT) (08/03/2017 9:53 AM NATIONAL SALES) [facility] Method Time Signature Alanine 30 9 - 55 PN SOFT Aminotransferase U/L Specimen Anatomical Collection Method Collection Time Receive d Time (Source) Location / / Volume Laterality 08/03/2017 9:53 AM 8 NATIONAL SALES 12:44 PM NATIONAL SALES Narrative PN SOFT - 08/03/2017 2:12 PM NATIONAL SALES Performed at [address] [address] CLIA number [id number] Phi Steward MD LAB_1 Performing Organization Address [facility] Phon e Number PN SOFT [address] [place] [address] (ABNORMAL) Lipid Panel and Direct LDL(If Needed) (08/03/2017 9:53 AM NATIONAL SALES) [facility] Method Time Signature Cholesterol 232 (H) 0 - 199 PN SOFT mg/dL Triglycerides 176 (H) 4 - 149 PN SOFT mg/dL HDL Cholesterol 43 >39 mg/dL PN SOFT Cholesterol/HDL 5.4 PN SOFT Ratio Screen LDL Calculated 154 (H) 19 - 130 PN SOFT mg/dL Non HDL Chol, Calc 189 (H) 0 - 159 PN SOFT mg/dL Length Of Fast 12.0 PN SOFT Specimen Anatomical Collection Method Collection Time Receive d Time (Source) Location / / Volume Laterality 08/03/2017 9:53 AM 8 NATIONAL SALES 12:44 PM NATIONAL SALES Narrative PN SOFT - 08/03/2017 2:12 PM NATIONAL SALES Performed at [address] [address] CLIA number [id number] Phi Steward MD LAB_1 Performing Organization Address [facility] Phon e Number PN SOFT [address] [place] [address] Glucose - Fasting > 8 Hrs Fasting (08/03/2017 9:53 AM NATIONAL SALES) athologist Signature Lab Glucose 98 70 - 100 PN SOFT mg/dL Comment: The stated glucose range is for the fast ing state. Non-fasting glucose range is 70-180 mg/d L Specimen Anatomical Collection Method Collection Time Receive d Time (Source) Location / / Volume Laterality 08/03/2017 9:53 AM 8 NATIONAL SALES 12:44 PM NATIONAL SALES Narrative PN SOFT - 08/03/2017 2:12 PM NATIONAL SALES Performed at [facility], [address] [place] [address] [place] number [id number] Phi Steward MD LAB_1 Performing Organization Address City/State/ZIP Code Phon e Number PN SOFT [address] [place] [address] documented in this encounter Visit Diagnoses Diagnosis Hyperglycemia Other abnormal glucose Hyperlipidemia, unspecified hyperlipidem ia type (HRC) Essential hypertension (HRC) Unspecified essential hypertension documented in this encounter Care Teams Hat Forming Machine Feeder Relationship Specialty Start Date End Date Phi Steward MD PCP - General 09/14/10 [address] [place] [address] documented as of this encounter
--- OUTSIDE RECORDS SUMMARY | 2022-04-07 13:03 | XMS_ITS | Encounter Summary ---
:1975 [facility] Address [address], [place] [address] Care Team Providers Name Role Phone Phi Steward MD Primary Care Provider Reason for Referral Therapies (Routine) - Closed Specialty Diagnoses / Procedures Referred By Contact Refer red To Contact Diagnoses Hip pain, right Phi Steward MD [address] [place] [address] Referral ID Status Reason Start Date Expiration Date Visits Requ ested Visits Authorized [id number] Closed 08/03/2017 10/02/2017 1 1 Scheduling Instructions Your provider has recommended an appoint ment with [facility]. You may call [phone] to schedule your a ppointment. We suggest you call your health insurance company about your coverage an d benefits for this appointment. WARE CONFIGURATION MANAGER Reason for Visit Reason Comments Annual Exam fasting Encounter Details Date Type Department Care Team Description 08/03/2017 Office Visit Phi Cravenu lt exam (Primary Dx); Dara Vazquez MD Hyperglycemia; [address] Jeffry Ng Hyperlipidemia, unspecified hyperlipidem ia type; [place] [address] [place] Essential hypertension; [phone] [id number] Anxiety; [phone] Hip pain, right ; (Work) Decreased libido Social History Tobacco Use Types Packs/Day Years Used Date Smoking Tobacco: Never Smokeless Tobacco: Never Alcohol Use Standard Drinks/Week Comments Yes 0 (1 standard drink = 0.6 oz pure alcoho l) on weekends 5 drinks Sex Assigned at Date Recorded Not on file documented as of this encounter Last Filed Vital Signs Vital Sign Reading Time Taken Comments Blood Pressure 134/88 08/03/2017 8:56 AM SOFTWARE CONFIGURATION MANAGER Pulse 80 08/03/2017 8:56 AM SOFTWARE CONFIGURATION MANAGER Temperature - - Respiratory Rate - - Oxygen Saturation - - Inhaled Oxygen Concentration - - Weight 114.6 kg (252 lb 9.6 oz) 08/03/2017 8:56 AM SOFTWARE CONFIGURATION MANAGER Height 185.4 cm (6' 1) 08/03/2017 8:56 AM SOFTWARE CONFIGURATION MANAGER Body Mass Index 33.33 08/03/2017 8:56 AM SOFTWARE CONFIGURATION MANAGER documented in this encounter Progress Notes Phi Steward MD - 08/03/2017 12:00 PM CST NAME: ANDRES LAMBERT MR#: [id number] CSN: [id number] AUTHENTICATING CLINICIAN: Phi Steward MD CONFIRM #: [id number] LOC: 3602 CLINIC PHYSICAL DATE OF VISIT: 08/03/2017 : 1975 SUBJECTIVE: Luis is a 41-year-old male who comes in today for a full physical, and he has several other concerns he would like to address in addition to the physical, including right hip pain and hypertension. He also has had some decreased libido. He has erectile dysfunction. Triglycerides and glucose have been high in the past. He has had some insomnia issues, and also anxiety. He wants to get everything checked out. In terms of right hip pain, he thought it could be related to a foot issue that he has had, and walking differently because of that, but he is not sure. It is over the outer hip area. He has insomnia and uses trazodone infrequently. Does not feel like he needs any of that right now. He uses melatonin sometimes. He has a history of anxiety and he would be interested in medicine for this. He sayshis sister takes Klonopin. He says he ends up with anxiety probably a couple of times per week. He does not really want to take a daily medicine because he does not think he needs that. Triglycerides high in the past and he wants to get things rechecked. He is fasting today. He also has a glucose thathas been high in the past. He wants to recheck things there. He has hypertension and takes hydrochlorothiazide. Feels like he has good control. Typically blood pressure less 140/90. He does keep an eyeon it. He would like to get his testosterone checked. He understands it may be a little bit high if it is checked now because it would be probably 9:45 in the morning when it is checked, but he would like to go ahead and get that checked. He is otherwise feeling well and has no other complaints. REVIEW OF SYSTEMS: Complete and negative. PAST MEDICAL HISTORY: 1.Hypertension. 2.Hyperlipidemia. 3.Hyperglycemia. 4.Overweight. 5.ED. 6.Insomnia. 7.Anxiety. 8.No history of surgery. ALLERGIES: None. MEDICATIONS: 1.Hydrochlorothiazide 25 mg a day. 2.Generic Viagra p.r.n. 3.BuSpar 10 mg b.i.d. p.r.n. (started today). 4.Trazodone at bedtime (takes rarely). SOCIAL HISTORY: The patient works doing [employer] for [employer]. He is . He has a 2-lyuuc-hgisfo. He says they may or may not have a second child. He is originally from [facility]. He has never been a smoker. He has 5-6 drinks of alcohol per week. FAMILY HISTORY: Father melanoma. Mother of small-cell lung cancer. No heart disease in the family. OBJECTIVE: VITAL SIGNS: Blood pressure is 134/88. Pulse is 80. Weight is 252.6 pounds. Height is 73 inches. GENERAL: The patient is in no acute distress. Affect is normal. SKIN: Normal to inspection and palpation. HEENT: Head normal. Eyes normal. Conjunctivae, pupils, oral cavity, throat, and dentition normal. NECK: Supple, nontender. No lymphadenopathy. No thyromegaly. No carotid bruits. HEART: Regular rate and rhythm. No murmurs, rubs or rubs. LUNGS: Clear to auscultation bilaterally. Normal respiratory effort. BREASTS: Normal. ABDOMEN: Soft, nontender. No masses, no hepatosplenomegaly, no abdominal hernia. GENITALIA: Normal male genitalia. Penis is normal. Testicles normal. No inguinal hernia, no inguinallymphadenopathy. NEURO: Nonfocal. EXTREMITIES: With normal inspection no edema in all 4 extremities. ASSESSMENT AND PLAN: 1.Normal adult health maintenance exam, except as noted below. The patient's last tetanus shot was March 2016. 2.Hypertension. Continue the hydrochlorothiazide. Doing well. Given refills. Check labs. See him again next year. 3.Overweight. Recommended weight loss. 4.Insomnia. Continue the trazodone if he needs it, but at this point he is using it rarely, so I do not even think I sent it over, but if he needs it he can call me. 5.Erectile dysfunction. Given generic Viagra to use as needed. 6.Anxiety. He does not want a daily medicine. He says he might need something maybe every couple of weeks, so maybe lets say 2 times a month. I gave him BuSpar to take as such. If that does not work, Icould certainly give him Klonopin, which is what his sister has, 0.5 mg, with the idea that it wouldneed to be on a very infrequent basis. I would probably give him 12 tablets, and then later he can call up to 6 months for another refill of 12 at the maximum. Essentially there would be a maximum therefore of 2 tablets average per month. If he would want to do that, if the BuSpar does not take care of things, then I could certainly do that. 7.Decreased libido, decreased energy, and some erectile dysfunction. He was wondering about getting his testosterone checked. It is going to be a little later in terms of checking it, but I am going toput an order in. Actually, I forgot to put the order in right when I saw him, so I am going to see if we can add it on. If not, we will have to call him. He is going to return as needed. 8.Right hip pain. I suggested physical therapy. I think he would like to do that. Most likely musculoskeletal discomfort. He is going to return as needed. It is possible, he mentioned just holding off on that, in which case if he calls I am happy to put an order in for him. He is going to return as needed. SONALI:NAT C: CONFIRM #: [id number] WARE CONFIGURATION MANAGER documented in this encounter Plan of Treatment Scheduled Referrals Name Type Priority Associated Diagnoses Order S chedule Physical Therapy Referral Routine Hip pain, right Ordered: 08/03/2017 documented as of this encounter Results Creatinine / GFR (08/03/2017 9:53 AM SOFTWARE CONFIGURATION MANAGER) athologist Signature Creatinine Serum 1.04 0.73 - [...] / Volume Laterality 08/03/2017 9:53 AM 8 SOFTWARE CONFIGURATION MANAGER 12:44 PM SOFTWARE CONFIGURATION MANAGER Narrative PN SOFT - 08/03/2017 2:12 PM SOFTWARE CONFIGURATION MANAGER [place] [address] CLIA number [id number] Phi Steward MD LAB_1 Performing Organization Address City/State/[facility] Code Phon e Number PN SOFT [address] [place] [address] [phone] Electrolyte Panel (08/03/2017 9:53 AM SOFTWARE CONFIGURATION MANAGER) athologist Signature Sodium 140 136 - 145 PN SOFT mmol/L Potassium 3.7 3.5 - 5.2 PN SOFT mmol/L Chloride 103 98 - 109 PN SOFT mmol/L CO2 27 22 - 31 PN SOFT mmol/L Specimen Anatomical Collection Method Collection Time Receive d Time (Source) Location / / Volume Laterality 08/03/2017 9:53 AM 8 SOFTWARE CONFIGURATION MANAGER 12:44 PM SOFTWARE CONFIGURATION MANAGER Narrative PN SOFT - 08/03/2017 2:12 PM SOFTWARE CONFIGURATION MANAGER Performed at [address] [address] CLIA number [id number] Phi Steward MD LAB_1 Performing Organization Address City/[facility]/ZIP [facility] Phon e Number PN SOFT [address] [place] [address] ALT (SGPT) (08/03/2017 9:53 AM SOFTWARE CONFIGURATION MANAGER) [facility] Method Time Signature Alanine 30 9 - 55 PN SOFT Aminotransferase U/L Specimen Anatomical Collection Method Collection Time Receive d Time (Source) Location / / Volume Laterality 08/03/2017 9:53 AM 8 SOFTWARE CONFIGURATION MANAGER 12:44 PM SOFTWARE CONFIGURATION MANAGER Narrative PN SOFT - 08/03/2017 2:12 PM SOFTWARE CONFIGURATION MANAGER Performed at [address] [address] CLIA number [id number] Phi Steward MD LAB_1 Performing Organization Address [facility] Phon e Number PN SOFT [address] [place] [address] [phone] (ABNORMAL) Lipid Panel and Direct LDL(If Needed) (08/03/2017 9:53 AM SOFTWARE CONFIGURATION MANAGER) [facility] Method Time Signature Cholesterol 232 (H) [...] / Volume Laterality 08/03/2017 9:53 AM 8 SOFTWARE CONFIGURATION MANAGER 12:44 PM SOFTWARE CONFIGURATION MANAGER Narrative PN SOFT - 08/03/2017 2:12 PM SOFTWARE CONFIGURATION MANAGER Performed at [address] [address] CLIA number [id number] Phi Steward MD LAB_1 Performing Organization Address [facility] Phon e Number PN SOFT [address] [place] [address] Glucose - Fasting > 8 Hrs Fasting (08/03/2017 9:53 AM SOFTWARE CONFIGURATION MANAGER) P athologist Signature Lab Glucose 98 70 - 100 PN SOFT mg/dL Comment: The stated glucose range is for the fast ing state. Non-fasting glucose range is 70-180 mg/d L Specimen Anatomical Collection Method Collection Time Receive d Time (Source) Location / / Volume Laterality 08/03/2017 9:53 AM 8 SOFTWARE CONFIGURATION MANAGER 12:44 PM SOFTWARE CONFIGURATION MANAGER Narrative PN SOFT - 08/03/2017 2:12 PM SOFTWARE CONFIGURATION MANAGER Performed at [facility], [address] [place] [address] CLIA number [id number] Phi Steward MD LAB_1 Performing Organization Address City/State/ZIP Code Phon e Number PN SOFT [address] [place] [address] [phone] documented in this encounter Visit Diagnoses Diagnosis Well adult exam - Primary Routine general medical examination at a health care facility Hyperglycemia Other abnormal glucose Hyperlipidemia, unspecified hyperlipidem ia type (HRC) Essential hypertension (HRC) Unspecified essential hypertension Anxiety (HRC) Anxiety state, unspecified Hip pain, right Pain in joint, pelvic region and thigh Decreased libido Hyperglycemia Other abnormal glucose Hyperlipidemia, unspecified hyperlipidem ia type (HRC) Essential hypertension (HRC) Unspecified essential hypertension documented in this encounter Care Teams Gravure Press Operator Relationship Specialty Start Date End Date Phi Steward MD PCP - General 09/14/[address] [place] [address] documented as of this encounter
--- OUTSIDE RECORDS SUMMARY | 2022-04-07 13:03 | XMS_ITS | Encounter Summary ---
:1975 Author Organization [facility] Address [address], [place] [address] Care Team Providers Name Role Phone Phi Steward MD Primary Care Provider Reason for Visit Reason Comments ABNORMAL EKG (Routine) - Closed Specialty Diagnoses / Procedures Referred By Contact Refer red To Contact Diagnoses Abnormal ambulatory electrocardiogram Phi Steward MD Procedures Echocardiogram [address] [place] [address] Referral ID Status Reason Start Date Expiration Date Visits Requ ested Visits Authorized [id number] Closed 02/18/2017 05/20/2018 1 1 Encounter Details Date Type Department Care Team Description 02/24/2017 Procedure Visit Damien Kelsey ogram ABNORMAL EKG [address] [facility] [place] [address] Social History Tobacco Use Types Packs/Day Years Used Date Smoking Tobacco: Never Smokeless Tobacco: Never Alcohol Use Standard Drinks/Week Comments Yes 0 (1 standard drink = 0.6 oz pure alcoho l) on weekends 5 drinks Sex Assigned at Date Recorded Not on file documented as of this encounter Progress Notes Toni Sharma - 02/24/2017 8:00 AM CDT Procedure completed. No complications. documented in this encounter Plan of Treatment Not on filedocumented as of this encounter Procedures Procedure Name Priority Date/Time Associated Diagnosis Comme nts ECHOCARDIOGRAM Routine 02/24/2017 7:56 AM Abnormal ambulatory Results for this CDT electrocardiogram procedure are in the results section. documented in this encounter Results Echocardiogram (02/24/2017 7:56 AM CDT) Specimen (Source) Anatomical Collection Method Collection Time Re ceived Time Location / / Volume Laterality 02/24/2017 7:56 AM CDT Narrative PN ECHO - 02/24/2017 10:04 AM CDT ECHOCARDIOGRAM. Date: 02/24/2017 Start: 07:56 AM Facilit y: Damien CONCLUSIONS 1. Left ventricular chamber size is norm al. Mild concentric wall thickening consistent with left ventricu lar hypertrophy is present. Global and regional left ventricular fun ction is normal. Left ventricular ejection fraction is visuall y estimated at 60%. 2. Normal right ventricle size and joey l global function. 3. The cardiac valves are normal. FINDINGS MITRAL VALVE Normal mitral valve structure and functi on. AORTIC VALVE The aortic valve is tricuspid. Normal ao rtic valve structure and function. TRICUSPID VALVE Normal tricuspid valve structure and fun ction. Pulmonary artery pressures cannot be estimated due to abs ence of adequate TR jet. PULMONIC VALVE Normal pulmonic valve structure and func tion. LEFT ATRIUM Normal left atrium. LEFT VENTRICLE Left ventricular chamber size is normal. Mild concentric wall thickening consistent with left ventricu lar hypertrophy is present. Global and regional left ventricular fun ction is normal. Left ventricular ejection fraction is visuall y estimated at 60%. Normal left ventricular diastolic function. RIGHT ATRIUM Normal right atrium. RIGHT VENTRICLE Normal right ventricle size and normal g lobal function. PERICARDIAL EFFUSION There is no pericardial effusion. MISCELLANEOUS The visualized segments of the thoracic aorta are normal in diameter. The inferior vena cava is normal suggest ing normal RA pressure. M-MODE/2D MEASUREMENTS & CALCULATIONS LV Diastolic Dimension: 4.46 cm LV PW Diastolic: 1.39 cm Septum Diastolic: 1.42 cm ? LA Dimension: 4.6 cm ? Aortic Annulus: 2.2 cm ? LA Area: 19.4 cm^2 LV Systolic Dimension: 3.16 cm ?LA/Aorta: 2.09 LV Volume Diastolic: 88.7 ml LV Volume Systolic: 31.6 ml ? LA volume index: 24.1 LV EDV/LV EDV Index: 88.7 ml/37 m^2 ? ml/m^2 LV ESV/LV ESV Index: 31.6 ml/13 m^2EF Estimated: 60 % DOPPLER MEASUREMENTS & CALCULATIONS MV Peak E-Wave: 0.5 m/s MV Peak A-Wave: 0.6 m/s MV E/A Ratio: 0.97 MV Peak Gradient: 1.16 mmHg MV Deceleration Time: 257 msec E' Velocity: 0.07 m/s PROCEDURE Doppler Quality: Adequate quality pulse, continuous wave, and color Doppler was performed and interpreted. 2-D Quality: Adequate quality 2-dimensio nal echo was performed and interpreted. Indications: Abnormal ECG. Contrast Medium: Not Applicable. Height: 72 inches Weight: 256 pounds BSA : 2.37 m^2 BMI: 34.72 kg/m^2 Rhythm: SinusBP: 144/90 mmHg Gender: ? Male *Patient educated on test, all questions answered by: EA . SIGNATURE DEMOGRAPHICS Patient Name ?? FAUSTO Ng ??Room N [facility] ?OUTPT Patient Number [id number] ?Date of Study ?02/24/2017 Accession ?[id number] ? In terpreting ? Andree Abdul, Number ? Physician ? Date of ??1975 ?Orde ring Physician PHI STEWARD MD Primary ?PHI STEWARD Sono grapher ?EA, [facility] Physician ?MD Procedure Note Andree Abdul MD - 02/24/2017For matting of this note might be different from the original. ECHOCARDIOGRAM. Date: 02/24/2017 Start: 07:56 AM Facilit y: Damien CONCLUSIONS 1. Left ventricular chamber size is norm al. Mild concentric wall thickening consistent with left ventricu lar hypertrophy is present. Global and regional left ventricular fun ction is normal. Left ventricular ejection fraction is visuall y estimated at 60%. 2. Normal right ventricle size and joey l global function. 3. The cardiac valves are normal. FINDINGS MITRAL VALVE Normal mitral valve structure and functi on. AORTIC VALVE The aortic valve is tricuspid. Normal ao rtic valve structure and function. TRICUSPID VALVE Normal tricuspid valve structure and fun ction. Pulmonary artery pressures cannot be estimated due to abs ence of adequate TR jet. PULMONIC VALVE Normal pulmonic valve structure and func tion. LEFT ATRIUM Normal left atrium. LEFT VENTRICLE Left ventricular chamber size is normal. Mild concentric wall thickening consistent with left ventricu lar hypertrophy is present. Global and regional left ventricular fun ction is normal. Left ventricular ejection fraction is visuall y estimated at 60%. Normal left ventricular diastolic function. RIGHT ATRIUM Normal right atrium. RIGHT VENTRICLE Normal right ventricle size and normal g lobal function. PERICARDIAL EFFUSION There is no pericardial effusion. MISCELLANEOUS The visualized segments of the thoracic aorta are normal in diameter. The inferior vena cava is normal suggest ing normal RA pressure. M-MODE/2D MEASUREMENTS & CALCULATIONS LV Diastolic Dimension: 4.46 cm LV PW Diastolic: 1.39 cm Septum Diastolic: 1.42 cm LA Dimension: 4.6 cm Aortic Annulus: 2.2 cm LA Area: 19.4 cm^2 LV Systolic Dimension: 3.16 cm LA/Aorta : 2.09 LV Volume Diastolic: 88.7 ml LV Volume Systolic: 31.6 ml LA volume i ndex: 24.1 LV EDV/LV EDV Index: 88.7 ml/37 m^2 ml/ m^2 LV ESV/LV ESV Index: 31.6 ml/13 m^2EF Estimated: 60 % DOPPLER MEASUREMENTS & CALCULATIONS MV Peak E-Wave: 0.5 m/s MV Peak A-Wave: 0.6 m/s MV E/A Ratio: 0.97 MV Peak Gradient: 1.16 mmHg MV Deceleration Time: 257 msec E' Velocity: 0.07 m/s PROCEDURE Doppler Quality: Adequate quality pulse, continuous wave, and color Doppler was performed and interpreted. 2-D Quality: Adequate quality 2-dimensio nal echo was performed and interpreted. Indications: Abnormal ECG. Contrast Medium: Not Applicable. Height: 72 inches Weight: 256 pounds BSA : 2.37 m^2 BMI: 34.72 kg/m^2 Rhythm: SinusBP: 144/90 mmHg Gender: Male *Patient educated on test, all questions answered by: PEÑA . SIGNATURE DEMOGRAPHICS Patient Name FAUSTO Ng Room Number OUTPT Patient Number [id number] Date of Study 0 02/24/2017 Interpreting Jennifer Obregon Physician Date of 1975 Ordering Physi jayy PHI STEWARD MD Primary PHI STEWARD Medicare Insurance Specialist PEÑA, [facility] Physician Phi Steward MD PN ECHO ORDERABLES Performing Organization Address City/State/ZIP Code Phon e Number PN ECHO documented in this encounter Visit Diagnoses Diagnosis Abnormal ambulatory electrocardiogram documented in this encounter Care Teams Box Toe Buffer Relationship Specialty Start Date End Date Phi Steward MD PCP - General 09/14/[address] [place], [place] [address] documented as of this encounter
--- OUTSIDE RECORDS SUMMARY | 2022-04-07 13:03 | XMS_ITS | Encounter Summary ---
:1975 [facility] Address [address], [place] [address] Care Team Providers Name Role Phone Phi Steward MD Primary Care Provider Encounter Details Date Type Department Care Team Description 04/02/2016 Notes/Orders [facility] Phi Champagne MD [address] [place] [address] [place] [address] [phone] (Wo rk) Social History Tobacco Use Types Packs/Day Years Used Date Smoking Tobacco: Never Smokeless Tobacco: Never Alcohol Use Standard Drinks/Week Comments Yes 0 (1 standard drink = 0.6 oz pure alcoho l) on weekends 5 drinks Sex Assigned at Date Recorded Not on file documented as of this encounter Progress Notes Phi Steward MD - 04/02/2016 6:13 AM CDT Trig and glucose abnormal --so information is sent to patient documented in this encounter Plan of Treatment Not on filedocumented as of this encounter Visit Diagnoses Not on filedocumented in this encounter Care Teams Other Sports Official Relationship Specialty Start Date End Date Phi Steward MD PCP - General 09/14/10 [address] [place] [address] documented as of this encounter
--- OUTSIDE RECORDS SUMMARY | 2022-04-07 13:03 | XMS_ITS | Encounter Summary ---
:1975 [facility] Address [address], [place] [address] Care Team Providers Name Role Phone Phi Steward MD Primary Care Provider Encounter Details Date Type Department Care Team Description 05/27/2017 Refill Order [place] [facility] Phi Champagne MD [address] [facility] [place] [address] [place] [address] [phone] (Wo rk) Social History Tobacco Use Types Packs/Day Years Used Date Smoking Tobacco: Never Smokeless Tobacco: Never Alcohol Use Standard Drinks/Week Comments Yes 0 (1 standard drink = 0.6 oz pure alcoho l) on weekends 5 drinks Sex Assigned at Date Recorded Not on file documented as of this encounter Nursing Notes Jo England - 05/27/2017 2:32 PM CST Labs to be addressed at future visit. ESS AND WELLNESS DIRECTOR Jo England - 05/27/2017 11:29 AM CST Request pending in another encounter. Closing note. ESS AND WELLNESS DIRECTOR Víctor Barnard - 05/27/2017 11:21 AM CST Pt calling request immediate approval by pcp for this med as he is out. Please advise. ESS AND WELLNESS DIRECTOR Interface, Out [email or web address] Prov Query - 05/27/2017 11:10 AM CST SCHEDULE THE FOLLOWING: - K BY: Now (Due as of 03/27/2017 for hydroCHLOROthiazide (ORETIC) 25 MG tablet) - NA BY: Now (Due as of 03/27/2017 for hydroCHLOROthiazide (ORETIC) 25 MG tablet) - LAST QUALIFYING VISIT WITH PHI STEWARD: 02/18/2017 - NEXT SCHEDULED VISIT: None - NEXT LAB APPOINTMENT: None Powered by [employer], Reference: [id number], 05/27/2017 11:10:57 AM JENNIFER, Pool: NITO PRIMARY CAREREFILL ([id number]) ESS AND WELLNESS DIRECTOR documented in this encounter Plan of Treatment Not on filedocumented as of this encounter Visit Diagnoses Diagnosis Encounter for long-term (current) use of medications - Primary Encounter for long-term (current) use of other medications documented in this encounter Care Teams Parts Counterperson Relationship Specialty Start Date End Date Phi Steward MD PCP - General 09/14/[address] [place], [place] [address] documented as of this encounter
--- OUTSIDE RECORDS SUMMARY | 2022-04-07 13:03 | XMS_ITS | Encounter Summary ---
:1975 [address] [facility] Address [address] [place] [address] Care Team Providers Name Role Phone Phi Steward MD Primary Care Provider Reason for Visit Reason Onset Date Comments Refill 07/11/2017 sildenafil (REVATIO) 20 MG tablet Encounter Details Date Type Department Care Team Description 07/11/2017 Refill [facility] Phi Steward, Refil l (sildenafil Medicine MD (REVATIO) 20 MG tablet) [address] [facility] [address] [place] [address] [place] [phone] (Wo rk) Social History Tobacco Use Types Packs/Day Years Used Date Smoking Tobacco: Never Smokeless Tobacco: Never Alcohol Use Standard Drinks/Week Comments Yes 0 (1 standard drink = 0.6 oz pure alcoho l) on weekends 5 drinks Sex Assigned at Date Recorded Not on file documented as of this encounter Nursing Notes Pat Kapoor, RN - 07/12/2017 11:50 AM CST Further assistance needed to complete refill request Reason: Please call patient to advise prescription was sent to requested pharmacy. Requested Prescriptions Signed Prescriptions Disp Refills ??? sildenafil (REVATIO) 20 MG tablet 30 Tab 7 Sig: Take 1 to 5 tabs qday prn. DO NOT SEND A PRIOR AUTH. FOR THIS MEDICINE. Authorizing Provider: PHI STEWARD Ordering User: PAT KAPOOR III CUTTER Nelly Espinal - 07/12/2017 11:35 AM CST Patient is out of medication. Please advise. III CUTTER Agustina, Out Sports.ws Prov Query - 07/11/2017 9:20 AM CST sildenafil (REVATIO) 20 MG tablet Medication started: 06/18/2014 Last ordered by PHI STEWARD: 03/18/2016 (480 days ago) QTY: 30, Refills: 11, Sig: take 1 to 5 tabs qday prn. do not send a prior auth. for this medicine. (unchanged) -> Refill x 9 months (until due for an office visit) -> Calculate quantity and refills manually. They could not be estimated due to missing or unreadable information. Last qualifying visit: 02/18/2017 (with PHI STEWARD) Next scheduled visit: None Powered by [email or web address], Reference: [id number], 07/11/2017 9:20:03 AM Tamela RODRIGUEZ [facility]IMARY C[facility] REFILL ([id number]) Aaliyah Tao - 07/11/2017 9:18 AM CST The pt is requesting a refill of the above medication. The pt states he is out of the medication. The pharmacy has been updated. III CUTTER documented in this encounter Plan of Treatment Not on filedocumented as of this encounter Visit Diagnoses Not on filedocumented in this encounter Care Teams Online Advertising Analyst Relationship Specialty Start Date End Date Phi Steward MD PCP - General 09/14/[address] [place] [address] documented as of this encounter
--- OUTSIDE RECORDS SUMMARY | 2022-04-07 13:03 | XMS_ITS | Encounter Summary ---
:1975 Author Organization [facility] Address [address], [place] [address] Care Team Providers Name Role Phone Phi Steward MD Primary Care Provider Reason for Referral (Routine) - Closed Specialty Diagnoses / Procedures Referred By Contact Refer red To Contact Diagnoses Abnormal ambulatory electrocardiogram Phi Steward MD Procedures Echocardiogram [address] [place] [address] Referral ID Status Reason Start Date Expiration Date Visits Requ ested Visits Authorized [id number] Closed 02/18/2017 05/20/2018 1 1 Procedure/Equipment (Routine) - Incomplete Specialty Diagnoses / Procedures Referred By Contact Refer red To Contact Diagnoses Chest pain, unspecified type Phi Steward MD Procedures XR Chest 2 Views [address] [place] [address] Referral ID Status Reason Start Date Expiration Date Visits V isits Requested Authorized [id number] Incomplete 02/18/2017 05/20/2018 1 1 Reason for Visit Reason Comments FATIGUE chest tightness Encounter Details Date Type Department Care Team Description 02/18/2017 Office Visit Phi Craven pa in, unspecified type (Primary Dx); Dara Vazquez MD Essential hypertension; [address] Ng Over weight; [place] [address] [place] Abnormal ambulatory electroc ardiogram [phone] Social History Tobacco Use Types Packs/Day Years Used Date Smoking Tobacco: Never Smokeless Tobacco: Never Alcohol Use Standard Drinks/Week Comments Yes 0 (1 standard drink = 0.6 oz pure alcoho l) on weekends 5 drinks Sex Assigned at Date Recorded Not on file documented as of this encounter Last Filed Vital Signs Vital Sign Reading Time Taken Comments Blood Pressure 144/90 02/18/2017 8:14 AM CDT Pulse 84 02/18/2017 8:14 AM CDT Temperature - - Respiratory Rate - - Oxygen Saturation - - Inhaled Oxygen Concentration - - Weight 116.1 kg (256 lb) 02/18/2017 8:14 AM CDT Height - - Body Mass Index 34.24 03/18/2016 1:20 PM CDT documented in this encounter Progress Notes Phi Steward MD - 02/18/2017 12:00 PM CDT NAME: ANDRES LAMBERT MR#: [id number] CSN: [id number] AUTHENTICATING CLINICIAN: Phi Steward MD CONFIRM #: [id number] LOC: 3602 CLINIC PROGRESS NOTE DATE OF VISIT: 02/18/2017 : 1975 SUBJECTIVE: Luis is a 41-year-old male who comes in today. His is 35 weeks . They are living in a hotel, and their new home will be built and finished in about 2 weeks. He is here today with a chief complaint of some aches in his left chest. In addition, he has had occasional diarrhea type stools, butit sounds like it might be every other day he might have one. He says that he has moderate symptoms in terms of the aches. Nothing otherwise seems to make things better or worse other than maybe stressbecause he is stressed right now. He also has had stress a year ago and had similar symptoms of aches in his left chest going on for a couple weeks and they went away. Again, he had extra stress at that time and then 5 years ago he also had extra stress, had the same kind of symptoms. He had a workup then which was negative and things just went away. He does snore about 1 time per month. He has had more tiredness than usual. He says he is falling asleep and staying asleep pretty well. He has no dizziness. No shortness of breath. Overall again, moderate symptoms. Nothing seems to otherwise make things better or worse. Blood pressure is a little elevated today. He is on the hydrochlorothiazide. He has been checking it. They have been in the 130s systolically, 88 to 89 typically diastolically. He is overweight. He hasgained 15 pounds. PAST MEDICAL HISTORY: 1.Hypertension. 2.Overweight. 3.Insomnia. 4.ED. OBJECTIVE: VITAL SIGNS: Blood pressure is 144/90. Pulse is 84. Weight is 256 pounds. GENERAL: Patient is in no acute distress. CARDIOVASCULAR: Regular rate and rhythm. No murmurs, gallops, or rubs. LUNGS: Clear to auscultation bilaterally. Normal respiratory effort. ABDOMEN: Soft, nontender. No masses. No hepatosplenomegaly. No abdominal hernia. HEENT: Head normal. Eyes normal. Conjunctivae, pupils, oral cavity, throat, and dentition normal. Tympanic membranes normal. NECK: Nontender. No lymphadenopathy. No thyromegaly. EXTREMITIES: With normal inspection. No edema all 4 extremities. Upper extremities with normal inspection and normal radial pulses. ASSESSMENT/PLAN: 1.Chest ache. The patient's chest discomfort will be checked out with an EKG and a chest x-ray. His discomfort is mostly at rest, comes on for a couple hours at a time and he has had it with stress a couple times in the past so I am not too concerned about it, but I would like to do blood test as wellas the EKG and chest x-ray. If that is all normal, then just reassurance. He is going to return if things change, new symptoms, or other concerns. 2.Overweight. Recommended weight loss. He is up 15 pounds. 3.Hypertension. He is going to continue the same medication. If he starts running higher, he may need additional medication. SONALI:NAT C: CONFIRM #: [id number] documented in this encounter Plan of Treatment Not on filedocumented as of this encounter Procedures Procedure Name Priority Date/Time Associated Diagnosis Comme nts ECG 12 LEAD Routine 02/18/2017 9:08 AM Chest pain, Results f or this OUTPATIENT CDT unspecified type procedure a re in [...] by: PEÑA . SIGNATURE DEMOGRAPHICS Patient Name ?? FAUSTO Ng ??Room N [facility] ?OUTPT Patient Number [id number] ?Date of Study ?02/24/2017 Accession ?[id number] ? In terpreting ? Andree Abdul, Number ? Physician ? Date of ??1975 ?Orde ring Physician PHI STEWARD MD Primary ?PHI STEWARD [facility] grapher ?[place], [facility] Physician ?MD Procedure Note Andree Abdul MD - 02/24/2017For matting of this note might be different from the original. ECHOCARDIOGRAM. Date: 02/24/2017 Start: 07:56 AM Facilit y: [place] CONCLUSIONS 1. Left ventricular chamber size is [...] FAUSTO Ng Room Number OUTPT Patient Number [id number] Date of Study 0 02/24/2017 Interpreting Kaylyn Abdul, Number Physician Date of 1975 Ordering Physi jayy PHI STEWARD MD Primary PHI STEWARD Collar [employer] [place], [facility] Physician Phi Steward MD PN ECHO ORDERABLES Performing Organization Address City/[facility]/ZIP [place] Phon e Number PN ECHO TSH with Free T4 (if TSH Abnormal) (02/18/2017 9:27 AM CDT) athologist Signature Thyroid 2.65 0.30 - PN SOFT Stimulating 4.50 Hormone uIU/mL Specimen Anatomical Collection Method Collection Time Receive d Time (Source) Location / / Volume Laterality 02/18/2017 9:27 AM 7 2:56 CDT PM CDT Narrative PN SOFT - 02/18/2017 4:11 PM CDT Performed at [place] [id number] CLIA number [id number] Phi Steward MD LAB_1 Performing Organization Address [facility] Phon e Number PN SOFT [address] [place] [address] Complete Blood Count-W/Diff (02/18/2017 9:27 AM CDT) [...] - 02/18/2017 9:45 AM CDT Performed at [address] [address] CLIA number [id number] Phi Steward MD LAB_1 Performing Organization Address City/[facility]/ZIP [place] Phon e Number PN SOFT [address] [place] [address] ALT (SGPT) (02/18/2017 9:27 AM CDT) [facility] gist Method Time Signature Alanine 32 9 - 55 PN SOFT Aminotransferase U/L Specimen Anatomical Collection Method Collection Time Receive d Time (Source) Location / / Volume Laterality 02/18/2017 9:27 AM 7 2:56 CDT PM CDT Narrative PN SOFT - 02/18/2017 3:39 PM CDT Performed at [address] [address] CLIA number [id number] Phi Steward MD LAB_1 Performing Organization Address City/[facility] Phon e Number PN SOFT [address] [place] [address] Creatinine / GFR (02/18/2017 9:27 AM CDT) [...] - 02/18/2017 3:39 PM CDT Performed at [facility], [address] [facility], [place] [address] CLIA number [id number] Phi Steward MD LAB_1 Performing Organization Address City/[facility]/ZIP Code Phon e Number PN SOFT [address] [place] [address] [phone] ECG 12 Lead Outpatient (02/18/2017 9:08 AM CDT) P athologist Signature Ventricular Rate 79 BPM MUSE GHP Atrial Rate 79 BPM MUSE GHP P-R Interval 180 ms MUSE GHP QRS Duration 110 ms MUSE GHP QT 388 ms MUSE GHP QTc 444 ms MUSE GHP P [place] 54 degrees MUSE GHP R [place] 91 degrees MUSE GHP T [place] 15 degrees MUSE GHP Specimen (Source) Anatomical Collection Method Collection Time Re ceived Time Location / / Volume Laterality 02/18/2017 9:08 AM CDT Narrative MUSE GHP - 02/18/2017 6:49 PM CDT Sinus rhythm Rightward axis Poor R wave progression Abnormal ECG No previous ECGs available Confirmed by JUNIOR SALAZAR ([id number]), [place] or [place] () on 02/18/2017 6:49:32 PM Procedure Note Junior Salazar MD / Epic, Internal P rocessing - 09/09/2019 Sinus rhythm Rightward axis Poor R wave progression Abnormal ECG No previous ECGs available Confirmed by JUNIOR SALAZAR ([id number]), [place] or [place] () on 02/18/2017 6:49:32 PM Phi Steward MD PN ECG ORDERABLES Performing Organization Address City/[facility]/ZIP Code Phon e Number MUSE GHP [address] [place] [address] XR Chest 2 Views (02/18/2017 9:04 AM [...] Visit Diagnoses Diagnosis Chest pain, unspecified type - Primary Essential hypertension (HRC) Unspecified essential hypertension Over weight (HRC) Overweight Abnormal ambulatory electrocardiogram Chest pain, unspecified type Chest pain, unspecified type Abnormal ambulatory electrocardiogram documented in this encounter Care Teams Senior Trial Attorney Relationship Specialty Start Date End Date Phi Steward MD PCP - General 09/14/[address] [place] [address] [place] [id number] documented as of this encounter
--- OUTSIDE RECORDS SUMMARY | 2022-04-07 13:03 | XMS_ITS | Encounter Summary ---
:1975 [facility] Address [address], [place] [address] Care Team Providers Name Role Phone Phi Steward MD Primary Care Provider Reason for Visit Reason Comments Annual Exam Encounter Details Date Type Department Care Team Description 03/18/2016 Office Visit Phi Craven, [facility] [place] [facility] adult exam (Primary Dx); Medicine Essential hypertension; [address] [place] Insomnia, unspecified type; [place] [address] [place] Over weight; [phone] Need for Tdap vaccination; [phone] Need for influe nza vaccination; (Work) Screening for diabetes mellitus; [phone] Screening for h yperlipidemia; (Fax) Erectile dysfun ction, unspecified erectile dysfunction type Social History Tobacco Use Types Packs/Day Years Used Date Smoking Tobacco: Never Smokeless Tobacco: Never Alcohol Use Standard Drinks/Week Comments Yes 0 (1 standard drink = 0.6 oz pure alcoho l) on weekends 5 drinks Sex Assigned at Date Recorded Not on file documented as of this encounter Last Filed Vital Signs Vital Sign Reading Time Taken Comments Blood Pressure 154/105 03/18/2016 1:21 PM CDT Pulse 84 03/18/2016 1:20 PM CDT Temperature - - Respiratory Rate - - Oxygen Saturation - - Inhaled Oxygen Concentration - - Weight 109.6 kg (241 lb 9.6 oz) 03/18/2016 1:20 PM CDT Height 184.2 cm (6' 0.5) 03/18/2016 1:20 PM CDT Body Mass Index 32.32 03/18/2016 1:20 PM CDT documented in this encounter Progress Notes Pih Steward MD - 03/18/2016 9:31 PM CDT NAME: ANDRES LAMBERT MR#: [id number] CSN: [id number] AUTHENTICATING CLINICIAN: Phi Steward MD CONFIRM #: [id number] LOC: 3602 CLINIC PHYSICAL DATE OF VISIT: 03/18/2016 : 1975 SUBJECTIVE: Luis is a 40-year-old male who comes in today with the request for a full physical. He has a few other special concerns he would like to address in addition to the physical, including hypertension, erectile dysfunction, overweight and insomnia. In terms of insomnia, he would like to have refills for the trazodone. It has helped in the past. He feels like he could use it again now. His mother here recently from lung cancer, and that has been stressful. He is overweight. He has been about the same with his weight here most recently. He wants to go down to maybe 210. He has erectile dysfunction, uses the Viagra occasionally. Would like to have refills of that. Does not need it very much ofit when he uses it. He would be interested in a generic. He has hypertension. Used to use the hydrochlorothiazide 25 mg a day, but he has been off it most recently and usually running in the 140s systolically. He has no trouble with chest pain, shortness of breath or dizziness. REVIEW OF SYSTEMS: Complete and negative. PAST MEDICAL HISTORY: 1.Hypertension. 2.Overweight. 3.Erectile dysfunction. 4.Insomnia. 5.History of depression and anxiety. (No longer on medicine). 6.Will need to check in terms of previous surgeries. ALLERGIES: None. MEDICATIONS: 1.Hydrochlorothiazide 25 mg a day (restarted today). 2.Trazodone at bedtime p.r.n. (restarted today). 3.Viagra p.r.n. 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 He is , here just recently. He is planning on starting a family. He is originally from [facility]. He has never been a smoker. He has 5-6 drinks of alcohol per week. FAMILY HISTORY: Father with history of melanoma, mother with small-cell lung cancer and she this year. Previously, he has had no heart disease in the family, but I will need to recheck on that. OBJECTIVE: Blood pressure is 160/100. Pulse is 84. Weight is 241.6 pounds. Height is 72.5 inches. GENERAL: Patient is no acute distress. Affect is normal. Skin is normal to inspection and palpation.Head normal. Eyes: Normal conjunctivae, pupils. Oral cavity, throat, and dentition normal. NECK: Supple, nontender. No lymphadenopathy. No thyromegaly. No carotid bruits. HEART: Regular rate and rhythm. No murmurs, gallops, rubs. LUNGS: Clear to auscultation bilaterally. Normal respiratory effort. BREASTS: Normal. ABDOMEN: Soft and nontender. No masses. No hepatosplenomegaly, no abdominal hernia. GENITAL EXAM: Normal male genitalia. Penis is normal. Testicles normal. No inguinal hernia. No inguinal lymphadenopathy. NEURO: Nonfocal. EXTREMITIES: Normal inspection. No edema all 4 extremities. ASSESSMENT AND PLAN: 1.Normal adult health maintenance exam, except as noted below. The patient's last tetanus shot was quite a while ago. He is getting a Tdap today and also getting a flu shot today. He is going to come in for glucose here soon for screening and cholesterol for screening. 2.Hypertension. Put him back on the hydrochlorothiazide 25 mg a day. When he does his labs, he is going to do them about 10 days or 2 weeks, so we will see how things are with the medicine. Otherwise return as needed. I told him he should be less than 140/90 80% or more of the time. 3.Overweight. Recommended weight loss. 4.Insomnia. Given the prescription of the trazodone to use as needed. 5.Erectile dysfunction. Gave the generic Viagra to use as needed. He is going to return as needed. SJC:NAT C: CONFIRM #: [id number] documented in this encounter Plan of Treatment Not on filedocumented as of this encounter Results Electrolyte Panel (04/01/2016 7:14 AM CDT) athologist Signature Sodium 141 136 - 145 [...] - 04/01/2016 9:38 AM CDT Performed at [address] [address] CLIA number [id number] Phi Steward MD LAB_1 Performing Organization Address [facility] e Number PN SOFT [address] [place] [address] [phone] Creatinine (04/01/2016 7:14 AM CDT) athologist Signature [...] - 04/01/2016 9:38 AM CDT Performed at [address] [address] CLIA number [id number] Phi Steward MD LAB_1 Performing Organization Address [facility] e Number PN SOFT [address] [place] [address] (ABNORMAL) Glucose (04/01/2016 7:14 AM CDT) P athologist Signature Lab Glucose 102 (H) 60 - 100 PN SOFT mg/dL Specimen Anatomical Collection Method Collection Time Receive d Time (Source) Location / / Volume Laterality 04/01/2016 7:14 AM 6 9:20 CDT AM CDT Narrative PN SOFT - 04/01/2016 9:38 AM CDT Performed at [place] [address] [place] [address] CLIA number [id number] Phi Steward MD LAB_1 Performing Organization Address [facility] Phon e Number PN SOFT [address] [place] [address] [phone] (ABNORMAL) Lipid Panel - LDLD If Trig High (04/01/2016 7:14 AM CDT) Patholo gist Method Time Signature Cholesterol 197 0 - [...] - 04/01/2016 9:38 AM CDT Performed at [address] [address] CLIA number [id number] Phi Steward MD LAB_1 Performing Organization Address [facility] Phon e Number PN SOFT [address] [place] [address] documented in this encounter Visit Diagnoses Diagnosis Well adult exam - Primary Routine general medical examination at a health care facility Essential hypertension (HRC) Unspecified essential hypertension Insomnia, unspecified type Over weight (HRC) Overweight Need for Tdap vaccination Need for prophylactic vaccination with c ombined jyatvesski-qmpacvy-idfhewfcs (DTP) vaccine Need for influenza vaccination Need for prophylactic vaccination and in oculation against influenza Screening for diabetes mellitus Screening for hyperlipidemia Screening for lipoid disorders Erectile dysfunction, unspecified erecti le dysfunction type Screening for hyperlipidemia Screening for lipoid disorders Screening for diabetes mellitus Essential hypertension (HRC) Unspecified essential hypertension documented in this encounter Care Teams Strategic Partnership Specialist Relationship Specialty Start Date End Date Phi Steward MD PCP - General 09/14/10 [address] [place] [address] documented as of this encounter
--- OUTSIDE RECORDS SUMMARY | 2022-04-07 13:03 | XMS_ITS | Encounter Summary ---
:1975 [facility] Address [address], [place] [address] Care Team Providers Name Role Phone Phi Steward MD Primary Care Provider Reason for Visit Reason Comments Refill hydroCHLOROthiazide (ORETIC) 25 MG tablet [Pharmacy Med Name: HYDROCHLOROTHIAZIDE TAB 25MG ] Encounter Details Date Type Department Care Team Description 05/27/2017 Refill Phi Craven, Refil sundar (hydroCHLOROthiazide Medicine (ORETIC) 25 MG tablet [address] [[place] [address] [facility]DRO[facility] TAB [phone] [id number] 25MG]) Social History Tobacco Use Types Packs/Day Years Used Date Smoking Tobacco: Never Smokeless Tobacco: Never Alcohol Use Standard Drinks/Week Comments Yes 0 (1 standard drink = 0.6 oz pure alcoho l) on weekends 5 drinks Sex Assigned at Date Recorded Not on file documented as of this encounter Nursing Notes Shiloh Kapoor RN - 05/27/2017 1:23 PM CST Requested Prescriptions No prescriptions requested or ordered in this encounter Previously pended medication(s) have been addressed or refilled in another encounter or office visit. No further action is needed. SERVICE TECH Interface, Out Surescripts Prov Query - 05/27/2017 11:10 AM CST hydroCHLOROthiazide (ORETIC) 25 MG tablet [Pharmacy Med Name: HYDROCHLOROTHIAZIDE TAB 25MG] Medication started: 06/18/2014 Last ordered by PHI STEWARD: 03/21/2017 (67 days ago) QTY: 90, Refills: 0, Sig: take 1 tablet daily (unchanged) -> Refill x 3 months (courtesy refill, overdue for a(n) K check and Na check) [...] (Sent to [facility]) Powered by [employer], Reference: [id number], 05/27/2017 11:10:56 AM JENNIFER, Bharath: NITO PRIMARY CAREREFILL ([id number]) SERVICE TECH documented in this encounter Plan of Treatment Not on filedocumented as of this encounter Visit Diagnoses Not on filedocumented in this encounter Care Teams Truck Trailer Mechanic Relationship Specialty Start Date End Date Phi Steward MD PCP - General 09/14/[address] [place], [place] [address] documented as of this encounter
--- OUTSIDE RECORDS SUMMARY | 2022-04-07 13:04 | XMS_ITS | Encounter Summary ---
:1975 Author [facility] Address [address] [place] [address] Care Team Providers Name Role Phone Phi Steward MD Primary Care Provider Encounter Details Date Type Department Care Team Description 05/28/2008 Office Visit [place] Phi Champagne MD [address] [facility] [place] [address] [place] [address] [phone] (Wo rk) Social History Tobacco Use Types Packs/Day Years Used Date Smoking Tobacco: Never Assessed Sex Assigned at Date Recorded Not on file documented as of this encounter Last Filed Vital Signs Vital Sign Reading Time Taken Comments Blood Pressure 132/88 05/28/2008 11:44 AM CREDIT BALANCE SPECIALIST Pulse 72 05/28/2008 11:44 AM CREDIT BALANCE SPECIALIST Temperature - - Respiratory Rate - - Oxygen Saturation - - Inhaled Oxygen Concentration - - Weight 104.3 kg (229 lb 15.7 05/28/2008 11:44 AM C: 104 .3kg oz) CREDIT BALANCE SPECIALIST Height - - Body Mass Index - - documented in this encounter Progress Notes Phi Steward MD - 05/28/2008 12:01 AM CST Progress Notes signed by Phi Steward MD at 05/30/08 1117 Author: Phi Steward MD Service: (none) Author Type: Physician Filed: 10/03/10 0917 Note Time: 05/28/08 0001 Status: Signed Eyeglass Inspector: Phi Steward MD (Physician) NAME: ANDRES LAMBERT MR#: [id number] ACCT: [id number] VISIT: [id number] DICTATING CLINICIAN: PHI STEWARD MD CONFIRM #: [id number] LOC: 3602 CLINIC PROGRESS NOTE DATE OF VISIT: 05/28/2008 SUBJECTIVE: : 1975. Luis is a 32-year-old male who comes in today with a chief complaint of depression and anxiety. He states that he has had this for many years. It has been a moderate problem, seems a little worse now with the new job. He definitely internalizes stressful things. He says he may have 19 good things going on and 1 thing that could be somewhat stressful and that he will perseverate on the 1 stressful thing, not be able to appreciate the good ones. He has variable energy, mild decreased concentration. No suicidal ideation whatsoever. Some anxious feelings and some depressed mood. He has been eating less than usual. Sleep has not been as good. He denies troubles with chest pain or shortness of breath. MEDICATIONS: None. ADR/ALLERGIES: NONE. SOCIAL HISTORY: The patient has 1-2 drinks of alcohol per week. OBJECTIVE: VS: BP: 132/88. P: 72. Wt: 230 lb. ASSESSMENT: Depression/anxiety. PLAN: The patient is going to take Prozac 20 mg a day. He is already set up to see a counselor. I told him about the medication, what to expect, potential side effects, timing of the medication, etc. He will come back and see me in 5 weeks if his improvement is not excellent or at any point if he has any trouble with side effects or other concerns. Otherwise, will see him again in a year if he is doing really well. [facility] [place][id number] C: 05/29/08 13:42 CONFIRM #: [id number] IT BALANCE SPECIALIST documented in this encounter Plan of Treatment Not on filedocumented as of this encounter Visit Diagnoses Not on filedocumented in this encounter Care Teams Biztalk Administrator Relationship Specialty Start Date End Date Phi Steward MD PCP - General 09/14/[address] [place], [place] [address] documented as of this encounter
--- OUTSIDE RECORDS SUMMARY | 2022-04-07 13:04 | XMS_ITS | Encounter Summary ---
:1975 [facility] Address [address] [place] [address] Care Team Providers Name Role Phone Phi Steward MD Primary Care Provider Encounter Details Date Type Department Care Team Description 09/09/2008 PN Conversion Only CHANELLE CONVERSIO N Phi Steward, [address] [place] [address] [place] [phone] (Wo rk) Social History Tobacco Use Types Packs/Day Years Used Date Smoking Tobacco: Never Assessed Sex Assigned at Date Recorded Not on file documented as of this encounter Plan of Treatment Not on filedocumented as of this encounter Procedures Procedure Name Priority Date/Time Associated Comments Diagnosis URINALYSIS Routine 09/09/2008 12:16 Results for this ROUTINE(MICRO IF POS) PM CDT proced ure are in the results section. URINALYSIS Routine 09/09/2008 12:16 Results for this MICROSCOPIC PM CDT procedure are i n the results section. URINE CULTURE Routine 09/09/2008 12:16 Results fo r this PM CDT procedure are i n the results section. documented in this encounter Results Urine Culture (09/09/2008 12:16 PM CDT) Analysis Performed At Patho logist Time Signature Urine Culture SEE TEXT HP CONVERSION Comment: Patient: ANDRES LAMBERT Culture, Urine ?Collected: ??[id number] ??[id number] Source: Clean Ca ?Processed: ??[id number] ??[id number] Final Report ------ ?[id number] ??[id number] No growth Specimen (Source) Anatomical Collection Method Collection Time Re ceived Time Location / / Volume Laterality 09/09/2008 12:16 PM CDT Phi Steward MD LAB_1 Performing Organization Address City/State/ZIP Code Phon e Number HP CONVERSION Urinalysis Routine(Micro If Pos) (09/09/2008 12:16 PM CDT) Patholo gist Method Time Signature Turbidity Clear No normal HP CONVERSION range pH Urine 7.0 4.5 - 7.5 HP CONVERSION Protein Urine Negative Neg-Trac HP CONVERSION Glucose, Negative Neg-Trac HP CONVERSION Qualitative U Ketones Negative Negative HP CONVERSION U BILI Negative Negative HP CONVERSION Blood Urine Negative Negative HP CONVERSION Nitrite Urine Negative Negative HP CONVERSION Leukocyte Negative Negative HP CONVERSION Esterase Urine Urobilinogen Negative 0.2 - 1.0 HP CONVERSION Urine U Specific 1.015 1.005 - 25 HP CONVERSION [place] Specimen (Source) Anatomical Collection Method Collection Time Re ceived Time Location / / Volume Laterality 09/09/2008 12:16 PM CDT Phi Steward MD LAB_1 Performing Organization Address City/State/ZIP Code Phon e Number HP CONVERSION (ABNORMAL) Urinalysis Microscopic (09/09/2008 12:16 PM CDT) Analysis Performed At Patho logist Time Signature White Blood 0-2/HPF 0 - 3 HP CONVERSION Cells Urine Red Blood 0-2/HPF 0 - 2 HP CONVERSION Cells Urine Bacteria Urine Rare (A) None HP CONVERSION Specimen (Source) Anatomical Collection Method Collection Time Re ceived Time Location / / Volume Laterality 09/09/2008 12:16 PM CDT Phi Steward MD LAB_1 Performing Organization Address City/State/ZIP Code Phon e Number HP CONVERSION documented in this encounter Visit Diagnoses Not on filedocumented in this encounter Care Teams Process Architect Relationship Specialty Start Date End Date Phi Steward MD PCP - General 09/14/10 [address] [place] [address] documented as of this encounter
--- OUTSIDE RECORDS SUMMARY | 2022-04-07 13:04 | XMS_ITS | Encounter Summary ---
:[address] [facility] Address [address] [place] [address] Care Team Providers Name Role Phone Phi Steward MD Primary Care Provider Reason for Visit Reason Comments ANXIETY Encounter Details Date Type Department Care Team Description 06/18/2014 Office Visit Phi Craven, Otiliae ty (Primary Dx); Medicine MD Elevated blood pressure reading without diagnosis of hypertension; [address] Insomnia; [place] [address] [place], [place] ED (erectile dysfunction) [phone] [address] Social History Tobacco Use Types Packs/Day Years Used Date Smoking Tobacco: Never Assessed Sex Assigned at Date Recorded Not on file documented as of this encounter Last Filed Vital Signs Vital Sign Reading Time Taken Comments Blood Pressure 168/109 06/18/2014 11:10 AM HOTEL RESERVATIONIST Pulse 84 06/18/2014 11:09 AM HOTEL RESERVATIONIST Temperature - - Respiratory Rate - - Oxygen Saturation - - Inhaled Oxygen Concentration - - Weight 115.2 kg (254 lb) 06/18/2014 11:09 AM HOTEL RESERVATIONIST Height - - Body Mass Index - - documented in this encounter Progress Notes Phi Steward MD - 06/19/2014 6:46 AM CST Progress Notes signed by Phi Steward MD at 06/19/147 Author: Phi Steward MD Service: (none) Author Type: Physician Filed: 06/19/141116 Note Time: 06/19/14 1047 Status: Signed Freight Team Associate: Phi Steward MD (Physician) NAME: ANDRES LAMBERT MR#: [id number] CSN: [id number] AUTHENTICATING CLINICIAN: Phi Steward MD CONFIRM #: [id number] LOC: 360 CLINIC PROGRESS NOTE DATE OF VISIT: 06/18/2014 : 1975 SUBJECTIVE: Luis is a 38-year-old male who comes in today with the chief complaint of anxiety, also hypertension and erectile dysfunction. In terms of anxiety, he is seeing a counselor, that helps. He is on the Zoloft 100 mg a day. That has been helpful. He is not having any side effects. He is trying to get more exercise. Overall, he feels like he is doing pretty well. Tolerating the Zoloft fine as well. He also has an elevated blood pressure. He has been running in the upper 140s when he has been checking it. No chest pain, shortness of breath or dizziness. He is not on any medicine right now. Lastly, he has erectile dysfunction. He would be interested in medicine for this, also evaluation. ALLERGIES: None. MEDICATIONS: 1. Trazodone p.r.n. 2. Zoloft daily. 3. Viagra p.r.n. (started today). 4. Hydrochlorothiazide 25 mg a day (started today). OBJECTIVE: Blood pressure is 162/100. Pulse is 84. Weight is 254 pounds. Recheck blood pressure is 168/109. ASSESSMENT AND PLAN: 1. Hypertension. This is a new diagnosis for him. I put him on hydrochlorothiazide 25 mg a day. Check labs soon at a biomass boiler operator visit when he is going to be doing labs for the testosterone, and thencheck it again about 2 weeks after he starts the medication. I will see him in 6 months to review his medical problems. 2. Erectile dysfunction. The patient is given the Viagra. Told him about the medication, what to expect, potential side effects, and the absolute contraindication with nitroglycerin. He is also going to do testosterone and TSH testing. 3. Anxiety. The patient can have refills for his medication in the next 12 months, and he is going to return as needed. He is doing well. MOUSTAPHAC:NAT C: CONFIRM #: [id number] L RESERVATIONIST documented in this encounter Plan of Treatment Not on filedocumented as of this encounter Visit Diagnoses Diagnosis Anxiety (HRC) - Primary Anxiety state, unspecified Elevated blood pressure reading without diagnosis of hypertension Insomnia Insomnia, unspecified ED (erectile dysfunction) Impotence of organic origin documented in this encounter Care Teams Fire Extinguisher Mechanic Relationship Specialty Start Date End Date Phi Steward MD PCP - General 09/14/10 [address] [place] [address] documented as of this encounter
--- OUTSIDE RECORDS SUMMARY | 2022-04-07 13:04 | XMS_ITS | Encounter Summary ---
:1975 Author Organization [facility] Address [address] [place] [address] Care Team Providers Name Role Phone Phi Steward MD Primary Care Provider Encounter Details Date Type Department Care Team Description 09/20/2007 PN Conversion Only CHANELLE CONVERSIO N [address] [place] [address] [address] Social History Tobacco Use Types Packs/Day Years Used Date Smoking Tobacco: Never Assessed Sex Assigned at Date Recorded Not on file documented as of this encounter Plan of Treatment Not on filedocumented as of this encounter Visit Diagnoses Not on filedocumented in this encounter Care Teams Solid Waste Collection Worker Relationship Specialty Start Date End Date Phi Steward MD PCP - General 09/14/[address] [place] [address] documented as of this encounter
--- OUTSIDE RECORDS SUMMARY | 2022-04-07 13:04 | XMS_ITS | Encounter Summary ---
:1975 [facility] Address [address] [place] [address] Care Team Providers Name Role Phone Phi Steward MD Primary Care Provider Encounter Details Date Type Department Care Team Description 11/28/2007 Office Visit [place] [facility] [place] [address] [place] [address] [phone] Social History Tobacco Use Types Packs/Day Years Used Date Smoking Tobacco: Never Assessed Sex Assigned at Date Recorded Not on file documented as of this encounter Progress Notes Evelyn Carrera - 11/28/2007 12:01 AM CDT Progress Notes signed by Evelyn Carrera DPM at 01/02/08 1253 Author: Evelyn Carrera DPM Service: (none) Author Type: (none) Filed: 10/03/10 0448 Note Time: 11/28/07 0001 Status: Signed Cook House Supervisor: Evelyn Carrera DPM (Physician) NAME: Andres LAMBERT MR#: [id number] ACCT: [id number] VISIT: [id number] DICTATING CLINICIAN: EVELYN CARRERA DPM CONFIRM #: [id number] LOC: 3639 CLINIC PROGRESS NOTE DATE OF VISIT: 11/28/2007 SUBJECTIVE: Return visit for patient with recurrent plantar fascial strain, right. Last visit was on 10/07/06. States he completed the PT. For about a month and a half to 2 months helped a little. Has had return of pain, pain with running, pain at most times now. Using orthotics, which are helpful. Pain still seems to be along the bottom of the right arch. MEDICATIONS: Reviewed and updated. ADR/ALLERGIES: REVIEWED AND UPDATED. OBJECTIVE: Exam reveals pedal pulses to be palpable. Distal sensorium is intact. There is tenderness along the medial band of plantar fascia, particularly notable with the hallux dorsiflexed. No nodularity noted. Just general sensitivity. No erythema, no edema. ASSESSMENT: Plantar fascial strain. PLAN: Discussed treatment options with the patient. Will try to increase the orthotic usage which he is not doing all the time. Medrol Dosepak. When completed, start Naprosyn at 500 mg twice daily with food. Plan on seeing him back in 1 month if there is no improvement. At that point, we will consider a therapeutic injection. DJP:[id number] C: 11/28/07 17:05 CONFIRM #: [id number] TRICIAN STATION ASSISTANT documented in this encounter Plan of Treatment Not on filedocumented as of this encounter Visit Diagnoses Not on filedocumented in this encounter Care Teams Japanese Professor Relationship Specialty Start Date End Date Phi Steward MD PCP - General 09/14/[address] [place], [place] [address] documented as of this encounter
--- OUTSIDE RECORDS SUMMARY | 2022-04-07 13:04 | XMS_ITS | Encounter Summary ---
:1975 Author [facility] Address [address] [place] [address] Care Team Providers Name Role Phone Phi Steward MD Primary Care Provider Encounter Details Date Type Department Care Team Description 01/02/2008 Office Visit [place] [facility] [place] [address] [place] [address] [phone] Social History Tobacco Use Types Packs/Day Years Used Date Smoking Tobacco: Never Assessed Sex Assigned at Date Recorded Not on file documented as of this encounter Progress Notes Evelyn Carrera - 01/02/2008 12:01 AM CDT Progress Notes signed by Evelyn Carrera DPM at 01/18/08 0752 Author: Evelyn Carrera DPM Service: (none) Author Type: (none) Filed: 10/03/10 0536 Note Time: 01/02/08 0001 Status: Signed Childcare Administrator: Evelyn Carrera DPM (Physician) NAME: ANDRES LAMBERT MR#: [id number] ACCT: [id number] VISIT: [id number] DICTATING CLINICIAN: EVELYN CARRERA DPM CONFIRM #: [id number] LOC: 3639 CLINIC PROGRESS NOTE DATE OF VISIT: 01/02/2008 SUBJECTIVE: Return visit for patient, follow up plantar fasciitis, right. Still having soreness throughout the mid arch area despite the icing, the anti-inflammatories, physical therapy, and the orthotic usage. Somewhat frustrated with the limitations in activity. MEDICATIONS: Reviewed and updated. ADR/ALLERGIES: Reviewed and updated. OBJECTIVE: Exam reveals pedal pulses to be palpable. Distal sensorium is intact. There is tenderness along the central and anterior portion of the medial and central band of the plantar fascial ligament, right. No nodularity, no abnormalities noted otherwise. No tenderness plantar medially, plantar medial heel. ASSESSMENT: Persistent plantar fascial strain, right. PLAN: Discussed treatment options with the patient. Will proceed with a corticosteroid injection. Patient consents. After an alcohol prep, 0.5 mL of 0.5% Marcaine plain with 1 mL of dexamethasone phosphate infiltrated throughout the area of the plantar fascial ligament, right, primarily in the central and anterior one half of the medial band. He tolerated this well. Discussed aftercare. See him back in 3-4 weeks for recheck. DJP:[id number] C: 01/02/08 17:29 CONFIRM #: [id number] NIC CHEMISTRY TEACHER documented in this encounter Plan of Treatment Not on filedocumented as of this encounter Visit Diagnoses Not on filedocumented in this encounter Care Teams Photo Printer Relationship Specialty Start Date End Date Phi Steward MD PCP - General 09/14/[address] [place], [place] [address] documented as of this encounter
--- OUTSIDE RECORDS SUMMARY | 2022-04-07 13:04 | XMS_ITS | Encounter Summary ---
:1975 Author Organization [facility] Address [address], [place] [address] Care Team Providers Name Role Phone Phi Steward MD Primary Care Provider Encounter Details Date Type Department Care Team Description 02/18/2010 Office Visit [facility] [address] Sabino Carrera DPM Podiatric MedS[facility] [address] [place] [address] [place] [address] [place] [address] [phone] Social History Tobacco Use Types Packs/Day Years Used Date Smoking Tobacco: Never Assessed Sex Assigned at Date Recorded Not on file documented as of this encounter Progress Notes Renny Carrera - 02/18/2010 12:01 AM CDT Progress Notes signed by Renny Carrera DPM at 02/25/10 1512 Author: Renny Carrera DPM Service: (none) Author Type: (none) Filed: 10/04/10 0108 Note Time: 02/18/10 0001 Status: Signed Uniforms Sales Representative: Renny Carrera DPM (Resource) NAME: ANDRES LAMBERT MR#: [id number] ACCT: [id number] VISIT: [id number] DICTATING CLINICIAN: Renny Carrera DPM CONFIRM #: [id number] LOC: 439 CLINIC PROGRESS NOTE DATE OF VISIT: 02/18/2010 : 1975 SUBJECTIVE: Return visit for patient for followup plantar fascial strain, right. It has been about a year since he was seen. States he is using the orthotic devices. They seem to help some. Still feels some pressure and soreness, primarily in the right mid arch area. States that he does okay with normal activities, but as he tries to increase his physical activities, particularly running, he notices increasing discomfort. He does plan on participating in a 10 mile run in March. MEDICATIONS: Reviewed and updated in [facility]. ALLERGIES: REVIEWED AND UPDATED IN [facility]. SUBJECTIVE: Exam reveals pedal pulses to be palpable. Distal sensorium is intact. Orthotic devices are in place and fitting well to the plantar contour. There is tenderness along the central area of the medial band of the plantar fascial. No erythema, no edema noted. ASSESSMENT: Plantar fascial strain, right. PLAN: Discussed treatment options with the patient. At this point he seems to be having persistent enough discomfort. Had done well with a corticosteroid injection in the past. We discussed proceeding with the same with the understanding that if this was not successful, that we may need to consider surgical options or allowing this adequate time to heal with limitations in activity. He is in agreement. After an alcohol prep, 0.5 2 mL of 0.5% Marcaine plain with 1 mL of dexamethasone phosphate injected in the area of the plantar fascial strain and the medial band of plantar fascial ligament, right. He tolerated this well. Discussed aftercare. Plan on seeing him back in the next month or so for a recheck. ROBERT:NAT C: CONFIRM #: [id number] ATE BRANCH EXCHANGE OPERATOR documented in this encounter Plan of Treatment Not on filedocumented as of this encounter Visit Diagnoses Not on filedocumented in this encounter Care Teams Accounts Receivable Supervisor Relationship Specialty Start Date End Date Phi Steward MD PCP - General 09/14/10 [address] [place] [address] documented as of this encounter
--- OUTSIDE RECORDS SUMMARY | 2022-04-07 13:04 | XMS_ITS | Encounter Summary ---
:1975 Author Organization [facility] Address [address] [place] [address] Care Team Providers Name Role Phone Phi Steward MD Primary Care Provider Reason for Visit Reason Comments EAR,PLUGGED Encounter Details Date Type Department Care Team Description 11/25/2012 Hospital Encounter [facility], Fore ign body in ear Care MD Andree (Primary Dx) [address] [facility] [id number] [place] [phone] Social History Tobacco Use Types Packs/Day Years Used Date Smoking Tobacco: Never Assessed Sex Assigned at Date Recorded Not on file documented as of this encounter Last Filed Vital Signs Vital Sign Reading Time Taken Comments Blood Pressure 148/100 11/25/2012 4:11 PM CDT Pulse 76 11/25/2012 4:11 PM CDT Temperature 36.7 ??C (98.1 ??F) 11/25/2012 4:11 PM CDT Respiratory Rate 16 11/25/2012 4:11 PM CDT Oxygen Saturation - - Inhaled Oxygen Concentration - - Weight - - Height - - Body Mass Index - - documented in this encounter Medications at Time of Discharge Medication Sig Dispensed Refills Start Date End Date buPROPion (BUDEPRION XL) Take 1 tablet by 90 tablet 3 06/2603/18/2016 300 MG 24 hour release mouth every morning. tablet traZODone (AKA DESYREL) Take 0.5-2 tablets by 60 tablet 11 0 06/26/2012 06/26/2013 50 MG tablet mouth at bedtime as needed for Sleep. Take 30 minutes before bed. OK to give 90 day rx with 3 refills. documented as of this encounter ED Notes Patito Andree A - 11/25/2012 4:56 PM CDT ED Provider Notes signed by Andree Caputo MD at 11/26/12 1151 Author: Andree Caputo MD Service: (none) Author Type: Physician Filed: 11/26/12 1151 Note Time: 11/26/12 1028 Status: Signed Gas Generator Operator: Andree Caputo MD (Physician) NAME: ANDRES LAMBERT MR#: [id number] CSN: [id number] AUTHENTICATING CLINICIAN: Andree Caputo MD CONFIRM #: [id number] LOC: 3620 URGENT CARE PROGRESS NOTE DATE OF VISIT: 11/25/2012 : 1975 CHIEF COMPLAINT: Plugged ear. SUBJECTIVE: The patient is a 37-year-old male complaining of some fullness in his left ear. He was at the gym this morning and wearing some ear buds to listen to music. When he got home, he took a shower. He was using a Q-tip to clean and dry the ears and he felt a plugging or full sensation in the left ear. No drainage. No history of ceruminosis. No recent URI symptoms. PAST HISTORY: Reviewed and updated in [facility]. MEDICATIONS: Reviewed and updated in [facility]. ALLERGIES: Reviewed and updated in [facility]. OBJECTIVE: Temp 98, pulse 76, blood pressure 148/100. Exam shows the patient appears in no distress. SKIN: Warm and dry. Right canals patent and TM is clear. Left canal blocked with a grayish white foreign body with a small hole in the center consistent with a covering of the ear bud. URGENT CARE COURSE: Initially tried to remove it with a bayonet forceps, which was too wide and splinter forceps, which also did not have enough length to get to the foreign body. This was fairly far in the ear canal. I then used a skin hook and was able to hook the foreign body through the hole in the center and remove it. The canal was within normal limits with no bleeding or irritation after. ASSESSMENT: Foreign body in the left ear canal, removed. PLAN: The patient will watch for pain or drainage. Followup p.r.nMargot VEGA:NAT C: CONFIRM #: [id number] documented in this encounter Plan of Treatment Not on filedocumented as of this encounter Visit Diagnoses Diagnosis Foreign body in ear - Primary Triage Assessment Note - Chela Barnhart RN - 11/25/2012 4:13 PM CDT Patient states after working out today wearing ear buds his L ear has continued to feel plugged/full, as if there was something in it. documented in this encounter Care Teams Business Unit Director Relationship Specialty Start Date End Date Phi Steward MD PCP - General 09/14/[address] [place] [address] documented as of this encounter
--- OUTSIDE RECORDS SUMMARY | 2022-04-07 13:04 | XMS_ITS | Encounter Summary ---
:1975 Author Organization [facility] Address [address], [place] [address] Care Team Providers Name Role Phone Phi Steward MD Primary Care Provider Encounter Details Date Type Department Care Team Description 03/19/2015 Imaging [facility] Right shoulder pain [address] [place], [place] [address] Social History Tobacco Use Types Packs/Day Years Used Date Smoking Tobacco: Never Assessed Sex Assigned at Date Recorded Not on file documented as of this encounter Plan of Treatment Not on filedocumented as of this encounter Procedures Procedure Name Priority Date/Time Associated Diagnosis Comme nts XR SCAPULA RT 2 Routine 03/19/2015 2:59 PM Right shoulder pain Results for this VIEWS CDT procedure are i n the results section. documented in this encounter Results XR Scapula Rt 2 Views (03/19/2015 2:59 PM CDT) Anatomical Region Laterality Modality Upper Extremity, Shoulder Other Specimen (Source) Anatomical Location Collection Method / Collectio n Time Received Time / Laterality Volume Narrative 04/02/2015 9:47 AM CDT Three views right scapula Indication: Pain. Interpretation: Three views of right sca pula fail to show evidence of osteochondroma or any other tumorous malformations. Procedure Note Tee Barroso MD - 11/30/2015Formatt ing of this note might be different from the original. Three views right scapula Indication: Pain. Interpretation: Three views of right sca pula fail to show evidence of osteochondroma or any other tumorous malformations. Tee Barroso MD RAD GD documented in this encounter Visit Diagnoses Diagnosis Right shoulder pain Pain in joint, shoulder region documented in this encounter Care Teams Top Waddy Relationship Specialty Start Date End Date Phi Steward MD PCP - General 09/14/[address] [place] [address] documented as of this encounter
--- OUTSIDE RECORDS SUMMARY | 2022-04-07 13:04 | XMS_ITS | Encounter Summary ---
:1975 Author Organization [facility] Address [address], [place] [address] Care Team Providers Name Role Phone Phi Steward MD Primary Care Provider Reason for Visit Reason Comments Other Encounter Details Date Type Department Care Team Description 06/22/2009 Telephone [place] [facility] Karen Lucero, JIMMY Other [address] [place], [place] [id number] Social History Tobacco Use Types Packs/Day Years Used Date Smoking Tobacco: Never Assessed Sex Assigned at Date Recorded Not on file documented as of this encounter Progress Notes [facility], Message - 06/22/2009 11:44 AM CST Phone Note filed by [employer] at 10/02/102041 Author: [employer] Service: (none) Author Type: (none) Filed: 10/02/102041 Note Time: 06/22/09 1144 Status: Signed Residential Instructor: [employer] (Resource) PRESCRIPTION REFILL Please provide enough refills to last until patient's next visit. Comment:- Pharmacy Seq #:-[phone] Pharmacy Name-Phone/Fax:-[facility] Pharmacy Street or City:-[place] Clinician Name:-PHI STEWARD Drug Name/Strength:-FLUOXETINE HCL 20MG CAP Sig: Dose/Route/Freq:-TAKE 1 CAPS EVERY DAY Quantity & Last Fill:-30 - 05/13/09 *ECODE~PNRF Created on 22Jun2009 11:44am by TANYA CROWELL M On 22Jun2009 1:05pm AVA CHAVIRA wrote: REFILL APPOINTMENT NEEDED Please call patient and schedule appointment within 30 days. Medication has been renewed and faxed to pharmacy for 30 day supply only, per protocol. Comment:-Pt is due for fasting physical. Thanks. On 23Jun2009 1:08pm KAREN LERMA wrote: I called and he will call when he is back in his office and has his schedule. Acknowledged by KAREN LERMA on 1:08pm AL LOGISTICS MANAGER documented in this encounter Plan of Treatment Not on filedocumented as of this encounter Visit Diagnoses Not on filedocumented in this encounter Care Teams Quality Compliance Coordinator Relationship Specialty Start Date End Date Phi Steward MD PCP - General 09/14/10 [address] [place] [address] documented as of this encounter
--- OUTSIDE RECORDS SUMMARY | 2022-04-07 13:04 | XMS_ITS | Encounter Summary ---
:1975 Author [facility] Address [address] [place] [address] Care Team Providers Name Role Phone Phi Steward MD Primary Care Provider Reason for Visit Reason Comments ANXIETY Encounter Details Date Type Department Care Team Description 06/26/2012 Office Visit Phi Craven, Emo onal depression; Medicine Anxiety; [address] [place] [address] [place] [phone] Social History Tobacco Use Types Packs/Day Years Used Date Smoking Tobacco: Never Assessed Sex Assigned at Date Recorded Not on file documented as of this encounter Last Filed Vital Signs Vital Sign Reading Time Taken Comments Blood Pressure 142/98 06/26/2012 4:57 PM TERRAZZO WORKER Pulse 72 06/26/2012 4:56 PM TERRAZZO WORKER Temperature - - Respiratory Rate - - Oxygen Saturation - - Inhaled Oxygen Concentration - - Weight 110.8 kg (244 lb 3.2 oz) 06/26/2012 4:56 PM TERRAZZO WORKER Height - - Body Mass Index - - documented in this encounter Progress Notes Phi Steward MD - 06/26/2012 9:33 PM CST Progress Notes signed by hPi Steward MD at 06/27/12 5710 Author: Phi Steward MD Service: (none) Author Type: Physician Filed: 06/27/12 1403 Note Time: 06/26/122132 Status: Signed Hand Hide Stretcher: Phi Steward MD (Physician) NAME: ANDRES LAMBERT MR#: [id number] CSN: [id number] AUTHENTICATING CLINICIAN: Phi Steward MD CONFIRM #: [id number] LOC: 3602 CLINIC PROGRESS NOTE DATE OF VISIT: 06/26/2012 : 1975 SUBJECTIVE: Luis is a 36-year-old male who comes in today with the complaints of depression, anxiety, insomnia and elevated blood pressure. In terms of depression and insomnia he feels that things have been worse here recently over the last couple of months. He had Prozac prescribed previously back around 2007. Says he did not like it. He felt sort of numb, sweated more than usual and had some erectile issues. He says that he got some better, but then things have been worse again over the last couple of months. He has been doing counseling for the last month. Would like to try some kind of medication again. He has got moderate symptoms. Counseling seems to be helping a little bit. He also has insomnia, it is middle insomnia, and would like to have something to be able to help with that. Lastly, he has got elevated blood pressure today. He has been borderline for his blood pressure in the past. He has never had a seizure. He is otherwise feeling well. No chest pain or shortness of breath. MEDICATIONS: None. ALLERGIES: None. OBJECTIVE: Blood pressure is 142/98 with a recheck of 140/98, pulse is 72, weight is 244.2 pounds. GENERAL: Patient is in no acute distress. ASSESSMENT AND PLAN: 1. Depression. The patient is put on Wellbutrin and he will hopefully get some good benefit from this. I told him about the medication, what to expect. 2. Anxiety. Again, he is going to use the Wellbutrin and get the counseling. He says his problem is more of depression than anxiety and he knows the Wellbutrin works more for the depression rather thananxiety. 3. Insomnia. Given the trazodone to use as needed. He will return as needed. 4. Elevated blood pressure. He is going to check 10 readings. He is going to return if he has more than 3/10 that are greater than 140/90. MOUSTAPHAC:NAT C: CONFIRM #: [id number] AZZO WORKER documented in this encounter Plan of Treatment Not on filedocumented as of this encounter Visit Diagnoses Diagnosis Emotional depression Depressive disorder, not elsewhere class ified Anxiety (HRC) Anxiety state, unspecified Insomnia Insomnia, unspecified documented in this encounter Care Teams Clinical Reimbursement Specialist Relationship Specialty Start Date End Date Phi Steward MD PCP - General 09/14/[address] [place] [address] documented as of this encounter
--- OUTSIDE RECORDS SUMMARY | 2022-04-07 13:04 | XMS_ITS | Encounter Summary ---
:1975 [facility] Address [address] [place] [address] Care Team Providers Name Role Phone Phi Steward MD Primary Care Provider Reason for Visit Reason Comments SHOULDER PAIN Encounter Details Date Type Department Care Team Description 02/21/2015 Office Visit Phi Craven, Pain in joint of right shoulder (Primary Dx); Medicine MD Elevated blood pressure reading without diagnosis of hypertension; [address] Essential hypertension [place] [address] [place] [phone] [address] Social History Tobacco Use Types Packs/Day Years Used Date Smoking Tobacco: Never Assessed Sex Assigned at Date Recorded Not on file documented as of this encounter Last Filed Vital Signs Vital Sign Reading Time Taken Comments Blood Pressure 138/90 02/21/2015 1:36 PM CDT Pulse 72 02/21/2015 1:30 PM CDT Temperature - - Respiratory Rate - - Oxygen Saturation - - Inhaled Oxygen Concentration - - Weight 112 kg (247 lb) 02/21/2015 1:30 PM CDT Height - - Body Mass Index - - documented in this encounter Progress Notes Phi Steward MD - 02/21/2015 1:53 PM CDT Progress Notes signed by Phi Steward MD at 02/21/15 1436 Author: Phi Steward MD Service: (none) Author Type: Physician Filed: 02/21/15 1436 Note Time: 02/21/15 1423 Status: Signed Manual Lathe Machinist: Phi Steward MD (Physician) NAME: ANDRES LAMBERT MR#: [id number] CSN: [id number] AUTHENTICATING CLINICIAN: Phi Steward MD CONFIRM #: [id number] LOC: 3602 CLINIC PROGRESS NOTE DATE OF VISIT: 02/21/2015 : 1975 SUBJECTIVE: Luis is a 39-year-old male who comes in today with the chief complaint of right posterior shoulder pain, also hypertension. In terms of the right posterior shoulder pain, he has had it going on for about 6 months. There has been no trauma. No unusual activities. He finds that if he is in the gym, doingmore working out and essentially over using it, he says that will lead to increased pain. He does not have discomfort with real specific motions that he will get on a regular basis. He has no numbness, tingling, weakness, or pain in his arms. Describes mild to moderate discomfort. He says there are a lot of times that it does not really bother him, and it does not stop him from doing things, but it has been a continued discomfort on and off with activities for 6 months, and bothersome enough that he would like to pursue this further, other than already seeing the chiropractor. He says he did see the chiropractor and worked with them for about 6 months, and he wants to look into this from a different angle at this point because that really has not helped. He also has hypertension. He somehow misunderstood, I did want him to start the blood pressure medicine when I previously saw him, and he says that he never ended up starting it. ALLERGIES: None. OBJECTIVE: Blood pressure is 148/92 with a recheck of 138/90, pulse is 72, weight is 247 pounds. GENERAL: Patient is in no acute distress. Affect and orientation are normal. The patient had a detailed examination of both upper extremities with comparison, with normal inspection, stability, strength, range of motion, coordination, gross sensation, reflexes. Normal skin inspection and palpation. No upper extremity edema bilaterally. Normal radial pulses bilaterally. He does not have any tenderness in the shoulder area including in the posterior shoulder area, where he points out where he has his discomfort. He is not really tender in that area. Different motions that would look at impingement syndrome, rotator cuff issues are not positive upon my examination. ASSESSMENT AND PLAN: 1. Right shoulder pain without a real clear etiology. He points really more to the scapular area. I am going to have him see one of the orthopedic doctors for their evaluation and recommendations. I did suggest we could have him see the physical therapist, and that may be ultimately what he should be doing, but I think I would like to get the expertise of one of the orthopedic doctors first and see what they think. 2. Hypertension. He is going to start the hydrochlorothiazide now as he did not end up starting it before, and he is going to take 1 a day. I told him to come in for a lab only visit in about 2 weeks, and that order should be in the computer already, and then he should see me in 6 months for a recheck. SJC:MEDQ C: CONFIRM #: [id number] documented in this encounter Plan of Treatment Not on filedocumented as of this encounter Visit Diagnoses Diagnosis Pain in joint of right shoulder - Primar y Pain in joint, shoulder region Elevated blood pressure reading without diagnosis of hypertension Essential hypertension (HRC) Unspecified essential hypertension documented in this encounter Care Teams Aluminum Can Collector Relationship Specialty Start Date End Date Phi Steward MD PCP - General 09/14/[address] [place] [address] documented as of this encounter
--- OUTSIDE RECORDS SUMMARY | 2022-04-07 13:04 | XMS_ITS | Encounter Summary ---
:1975 Author Organization [facility] Address [address] [place] [address] Care Team Providers Name Role Phone Phi Steward MD Primary Care Provider Reason for Visit Reason Comments SHOULDER PAIN Encounter Details Date Type Department Care Team Description 03/19/2015 Surgical Consult [facility] Tee Barroso Ri ght shoulder pain (Primary Dx); CENTER Snapping scapula syndrome of right shoul [place] [address] [facility] [address] [place] [address] [phone] Social History Tobacco Use Types Packs/Day Years Used Date Smoking Tobacco: Never Assessed Sex Assigned at Date Recorded Not on file documented as of this encounter Progress Notes Tee Barroso MD - 03/29/2015 2:17 PM CDT Progress Notes signed by Tee Barroso MD at 04/02/15940 Author: Tee Barroso MD Service: (none) Author Type: Physician Filed: 04/02/15940 Note Time: 03/31/151423 Status: Signed Water Purification Chemist: Tee Barroso MD (Physician) NAME: ANDRES LAMBERT MR#: [id number] CSN: [id number] AUTHENTICATING CLINICIAN: Tee Barroso MD CONFIRM #: [id number] LOC: 711 CLINIC PROGRESS NOTE DATE OF VISIT: 03/19/2015 : 1975 CHIEF COMPLAINT: Shoulder pain. HISTORY OF PRESENT ILLNESS: Andres is a 39-year-old gentleman. Pain at rest 5/10, with activities 5/10. 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 Comes in today for evaluation, right-hand dominant. Mode of injury: None. He has had increasing pain for 6 months off and on, that that says hurts on the shoulder blade but no history of injury. He sought patient centered care specialist. No physical therapy. No injections. No medications. He reports his patient centered care specialist has helped him somewhat. Limitations include soreness, pain, overhead cracking and crepitation and hobbies include exercise. He comes in today for evaluation. He describes the pain as posterior superior on the shoulder blade. CURRENT MEDICAL CONDITIONS: None. PREVIOUS SURGERIES: None. MEDICATIONS: Include hypertension medication, Viagra and trazodone. 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 Lives with his girlfriend. Nonsmoker. Nondrinker. REVIEW OF SYSTEMS: Negative. FAMILY HEALTH HISTORY: Negative. PHYSICAL EXAM: Physical exam shows an alert and oriented gentleman in no acute distress. Cranial nerves 2-12 grossly intact. Skin exam of the affected shoulder: No atrophy, erythema, drainage, cellulitic or dermatologic conditions. Constitutional: Well-nourished, appropriate affect, normal weight per height. Range of motion of the shoulder: Forward elevation on the right side is to 180, left side 180. External rotation 70, 70. Internal rotation T10 bilaterally. Strength exam 5/5 throughout. SLAP tests are normal. Biceps tests are normal. Circumduction is without pain. AC joint palpation and crossover test is negat natacha. Exam of the scapula shows protraction, retraction and shoulder shrugs are present with significant crepitation over the superior medial border of the scapula consistent with snapping scapula syndrome. RADIOGRAPHS: X-rays independently reviewed. Three views right scapula Indication: Pain. Interpretation: Three views of right scapula fail to show evidence of osteochondroma or any other tumorous malformations. IMPRESSION: Snapping scapula syndrome. PLAN: I talked to patient about things that she can try. Certainly doing nothing is sometimes the best treatment for this. If he can avoid the popping of the shoulder blade, he will feel better in not a terribly significant amount of time. He can consider physical therapy but usually it is not tremendously useful for this condition. We can do injections if he so chooses. He verbalized an understanding. He will take this under advisement and follow up with me on a p.r.n. basis. No further instructions. Total time with the patient today is 30 minutes, total consultation time was 20 minutes. CC: PHI STEWARD MD [address] [place] [address] MRW:ARTURO C: R:03/29/15 14:18 CONFIRM#:[id number] documented in this encounter Plan of Treatment Not on filedocumented as of this encounter Visit Diagnoses Diagnosis Right shoulder pain - Primary Pain in joint, shoulder region Snapping scapula syndrome of right shoul geraldine documented in this encounter Care Teams Site Worker Relationship Specialty Start Date End Date Phi Steward MD PCP - General 09/14/[address] [place] [address] [place] [address] documented as of this encounter
--- OUTSIDE RECORDS SUMMARY | 2022-04-07 13:04 | XMS_ITS | Encounter Summary ---
:1975 [facility] Address [address] [place] [address] Care Team Providers Name Role Phone Phi Steward MD Primary Care Provider Reason for Visit Reason Comments Refill Encounter Details Date Type Department Care Team Description 02/06/2014 Refill [place] [facility] Phi Champagne MD Refill [address] [place] [address] [place] [address] [phone] (Wo rk) Social History Tobacco Use Types Packs/Day Years Used Date Smoking Tobacco: Never Assessed Sex Assigned at Date Recorded Not on file documented as of this encounter Nursing Notes Kitty Lujan, RN - 02/08/2014 11:19 AM CDT Modified previous script to 90 day supply per request. Requested Prescriptions Signed Prescriptions Disp Refills ??? traZODone (DESYREL) 50 mg tablet 180 tablet 2 Sig: Take 0.5-2 tablets by mouth at bedtime as needed for Sleep. Take 30 minutes before bed. Authorizing Provider: PHI STEWARD Ordering User: KITTY LUJAN Haley Key - 02/08/2014 10:58 AM CDT [facility] Refill Department received a request from pharmacy for rx to be written for a 90 day supply.Please advise, thank you. documented in this encounter Plan of Treatment Not on filedocumented as of this encounter Visit Diagnoses Not on filedocumented in this encounter Care Teams Instrument Technologist Relationship Specialty Start Date End Date Phi Steward MD PCP - General 09/14/[address] [place], [place] [address] documented as of this encounter
--- OUTSIDE RECORDS SUMMARY | 2022-04-07 13:04 | XMS_ITS | Encounter Summary ---
:1975 Author Organization [facility] Address [address], [place] [address] Care Team Providers Name Role Phone Phi Steward MD Primary Care Provider Encounter Details Date Type Department Care Team Description 11/25/2010 Office Visit [facility] [address] Nelly Garcia, Podiatric MedSurg DPTigre [address] [place] [address] [phone] Social History Tobacco Use Types Packs/Day Years Used Date Smoking Tobacco: Never Assessed Sex Assigned at Date Recorded Not on file documented as of this encounter Progress Notes Nelly Garcia DPM - 11/25/2010 12:01 AM CDT Progress Notes signed by Nelly Garcia DPM at 11/30/10 0950 Author: Nelly [place] DPM Service: (none) Author Type: Physician Filed: 11/30/10 0954 Note Time: 11/25/10 0001 Status: Signed Administrative Assistant Coordinator: Nelly Garcia DPM (Physician) NAME: ANDRES LAMBERT MR#: [id number] ACCT: [id number] VISIT: [id number] DICTATING CLINICIAN: Nelly Garcia DPM CONFIRM #: [id number] LOC: 439 CLINIC PROGRESS NOTE DATE OF VISIT: 11/25/2010 : 1975 SUBJECTIVE: Patient is a 35-year-old male, presents today with complaint of right arch pain. This has been a chronic problem for him off and on for the past 2-3 years. He feels as if there is a marble in his arch. Feels like gets some numbness to his toes when he runs. He rates pain as a 1-6 on a 1-10 scale in the last 3 weeks. He normally runs for activity but just started doing this again recently, and it seems to exacerbate his symptoms. He has done stretches, physical therapy in the past, but he has had the most relief with cortisone injection and was hoping for a repeat injection today which Dr. Carrera has done in the past. He normally wears orthotics consistently but does not have them with him today. MEDICATIONS: Reviewed and updated on health profile. ALLERGIES: No known drug allergies. OBJECTIVE: The patient is alert and oriented, in no distress, a 35-year-old male. Neurovascular status is intact to the right foot. Skin is intact without rashes or scaling. Right ankle and subtalar range of motion is within normal limits. The right plantar fascia seems to be intact without thickening, nodularity, or deficits. He has no pain with direct palpation of plantar medial heel but has some mild pain on palpation to the mid medial plantar fascia. ASSESSMENT: Right mid arch pain. PLAN: Reviewed with patient I think it is reasonable to go ahead and repeat the injection. I think he has exhausted all other treatment measures. I discussed perhaps doing another activity rather than running that may not exacerbate his symptoms. With the cortisone, possibility of increased pain and steroid flare was discussed. After verbal consent, the surrounding maximum point of tenderness above and below the right plantar fascia medially was infiltrated with a combination of 1 mL of 0.5% bupivacaine plain and 1 mL of dexamethasone phosphate. Follow up p.r.n. SMS:MEDQ C: CONFIRM #: [id number] documented in this encounter Plan of Treatment Not on filedocumented as of this encounter Visit Diagnoses Not on filedocumented in this encounter Care Teams Accounting Coordinator Relationship Specialty Start Date End Date Phi Steward MD PCP - General 09/14/[address] [place] [address] documented as of this encounter
--- OUTSIDE RECORDS SUMMARY | 2022-04-07 13:04 | XMS_ITS | Encounter Summary ---
:1975 Author Organization [facility] Address [address] [place] [address] Care Team Providers Name Role Phone Phi Steward MD Primary Care Provider Encounter Details Date Type Department Care Team Description 05/28/2008 PN Conversion Only [place] [place] [address] Social History Tobacco Use Types Packs/Day Years Used Date Smoking Tobacco: Never Assessed Sex Assigned at Date Recorded Not on file documented as of this encounter Plan of Treatment Not on filedocumented as of this encounter Visit Diagnoses Not on filedocumented in this encounter Care Teams Head Of Science Relationship Specialty Start Date End Date Phi Steward MD PCP - General 09/14/[address] [place] [address] documented as of this encounter
--- OUTSIDE RECORDS SUMMARY | 2022-04-07 13:04 | XMS_ITS | Encounter Summary ---
:1975 [facility] Address [address] [place] [address] Care Team Providers Name Role Phone Phi Steward MD Primary Care Provider Reason for Visit Reason Comments DEPRESSION Encounter Details Date Type Department Care Team Description 12/04/2013 Office Visit Phi Craven Eleva ted blood pressure reading without diagnosis of hypertension (Primary Dx); Medicine Insomnia; [address] Emotional depression; [place] [address] [place] Anxiety [phone] Social History Tobacco Use Types Packs/Day Years Used Date Smoking Tobacco: Never Assessed Sex Assigned at Date Recorded Not on file documented as of this encounter Last Filed Vital Signs Vital Sign Reading Time Taken Comments Blood Pressure 139/93 12/04/2013 2:44 PM CDT Pulse 72 12/04/2013 2:38 PM CDT Temperature - - Respiratory Rate - - Oxygen Saturation - - Inhaled Oxygen Concentration - - Weight 110.5 kg (243 lb 9.6 oz) 12/04/2013 2:38 PM CDT Height - - Body Mass Index - - documented in this encounter Progress Notes Phi Steward MD - 12/04/2013 10:55 PM CDT Progress Notes signed by Phi Steward MD at 12/05/13 0552 Author: Phi Steward MD Service: (none) Author Type: Physician Filed: 12/05/13 0552 Note Time: 12/05/13 0449 Status: Signed Production Gear Cutter: Phi Steward MD (Physician) NAME: ANDRES LAMBERT MR#: [id number] CSN: [id number] AUTHENTICATING CLINICIAN: Phi Steward MD CONFIRM #: [id number] LOC: 3602 CLINIC PROGRESS NOTE DATE OF VISIT: 12/04/2013 : 1975 SUBJECTIVE: Luis is a 38-year-old male who comes in today with the chief complaint of depression, also some anxiety, insomnia, elevated blood pressure and overweight. He says that he tried Wellbutrin for the depression and did not feel great. He is wondering what else he can do for the depression and anxiety type symptoms. He does mention having some erectile dysfunction and decreased libido symptoms. He has trazodone, used for insomnia. That seems to be helpful for when he has used it, tolerates that fine. He is overweight. Weight has been about the same with time. He has no chest pain or shortness of breath. He does have elevated blood pressure today. It has been high in the past. He has not been checking his blood pressures recently. He has got an appointment, he thinks is to see a psychologist as well. Would like to have a new medicine now. PHQ-9 score is 6. He denies suicidal ideation. Again no chest pain or shortness of breath. MEDICINES: 1. Trazodone p.r.n. 2. Zoloft daily (started today). ALLERGIES: None. OBJECTIVE: Blood pressure is 150/100, with a recheck of 139/93. Pulse is 72. Weight is 243.6 pounds. ASSESSMENT AND PLAN: 1. Depression and anxiety. The patient, again tried the Wellbutrin, did not feel great with it. We are going to go on Zoloft and hopefully will get good benefit from that. I told him what to expect with the medication, the timing of the medicine. I will see him back in about 5 weeks to see how things are going, unless he is doing great, in which case he does not need to come back at that visit. 2. Insomnia. Given the trazodone to use as needed. 3. Some erectile dysfunction and decreased libido. We did not address this too much today, but if hewants to discuss this in the future, we can talk about it and see if he wants to try some medicine. 4. Elevated blood pressure. He is going to check 10 readings. He is going to return if he has more than 3/10 that are greater than 140/90. 5. Overweight. Recommend weight loss. SJC:MEDQ C: CONFIRM #: [id number] documented in this encounter Plan of Treatment Not on filedocumented as of this encounter Visit Diagnoses Diagnosis Elevated blood pressure reading without diagnosis of hypertension - Primary Insomnia Insomnia, unspecified Emotional depression Depressive disorder, not elsewhere class ified Anxiety (HRC) Anxiety state, unspecified documented in this encounter Care Teams Jewel Bearing Grinder Relationship Specialty Start Date End Date Phi Steward MD PCP - General 09/14/10 [address] [place] [address] documented as of this encounter
--- OUTSIDE RECORDS SUMMARY | 2022-04-07 13:04 | XMS_ITS | Encounter Summary ---
:1975 Author Organization [facility] Address [address] [place] [address] Care Team Providers Name Role Phone Phi Steward MD Primary Care Provider Encounter Details Date Type Department Care Team Description 10/13/2010 PN Conversion Only [facility] Patenaude, Remington id J, MedSurg DPM [address] [place] [address] [place] [phone] (Wo rk) Social History Tobacco Use Types Packs/Day Years Used Date Smoking Tobacco: Never Assessed Sex Assigned at Date Recorded Not on file documented as of this encounter Plan of Treatment Not on filedocumented as of this encounter Visit Diagnoses Not on filedocumented in this encounter Care Teams Beef Selector Relationship Specialty Start Date End Date Phi Steward MD PCP - General 09/14/10 [address] [place] [address] documented as of this encounter
--- OUTSIDE RECORDS SUMMARY | 2022-04-07 13:04 | XMS_ITS | Encounter Summary ---
:1975 [facility] Address [address] [place] [address] Care Team Providers Name Role Phone Phi Steward MD Primary Care Provider Encounter Details Date Type Department Care Team Description 10/22/2014 Lab Visit Damien marinelli Elevated blood pressure read ing without diagnosis of hypertension; [address] ED (erectile dysfunction) [place] [id number] Social History Tobacco Use Types Packs/Day Years Used Date Smoking Tobacco: Never Assessed Sex Assigned at Date Recorded Not on file documented as of this encounter Plan of Treatment Not on filedocumented as of this encounter Procedures Procedure Name Priority Date/Time Associated Diagnosis Comme nts TESTOSTERONE, ADULT Routine 10/22/2014 7:08 AM ED (erectile Re sults for this MALE CDT dysfunction) procedure are i n the results section. TSH AND FREE T4 Routine 10/22/2014 7:08 AM ED (erectile Result s for this (FRT4 IF TSH ABNORM) CDT dysfunction) procedu re are in the results section. CREATININE / GFR Routine 10/22/2014 7:08 AM Elevated blood Res ults for this CDT pressure reading procedure a re in without diagnosis of the res ults hypertension section. ELECTROLYTE PANEL Routine 10/22/2014 7:08 AM Elevated blood Re sults for this CDT pressure reading procedure a re in without diagnosis of the res ults hypertension section. documented in this encounter Results TESTOSTERONE ADULT MALE (10/22/2014 7:08 AM CDT) Analysis Performed At Patho logist Time Signature Testosterone 364 300 - HP CONVERSION Adult Male 1,080 ng/dL Comment: Total testosterone values may not reflec t optimal concentrations in all individuals. Free or bioavailable testosterone measurements may provide amaya pportive information. REFERENCE INTERVAL: Testosterone, Adult Male Access complete set of age- and/or gende r-specific reference intervals for this test in the [facility] Laboratory Test Directory (iWitness). Specimen Anatomical Collection Method Collection Time Receive d Time (Source) Location / / Volume Laterality 10/22/2014 7:08 AM 5 CDT 11:55 AM CDT Narrative HP CONVERSION - 10/23/2014 5:54 PM CDT Performed at [address] [address] Phi Steward MD LAB_1 Performing Organization Address City/[facility] Phon e Number HP CONVERSION TSH AND FREE T4 (FRT4 IF TSH ABNORM) (10/22/2014 7:08 AM CDT) athologist Signature Thyroid 3.70 0.20 - HP CONVERSION Stimulating 4.50 mIU/L Hormone Specimen Anatomical Collection Method Collection Time Receive d Time (Source) Location / / Volume Laterality 10/22/2014 7:08 AM 5 CDT 12:00 PM CDT Narrative HP CONVERSION - 10/22/2014 12:34 PM CDT Performed at [place] [id number] Phi Steward MD LAB_1 Performing Organization Address City/[facility] Phon e Number HP CONVERSION Creatinine / GFR (10/22/2014 7:08 AM CDT) athologist Signature Creatinine 1.0 0.4 - 1.3 HP CONVERSION Serum mg/dL Est GFR >60 >60 HP CONVERSION Am mL/min/1.7 3m2 Est GFR Non-Afr >60 >60 HP CONVERSION Am mL/min/1.7 3m2 Comment: Normal>60, moderate decrease 30 - 59, se yecenia decrease 15 - 29, renal failure <15 mL/min/1.73 m2 NOTE: ??Choose the eGFR result above ignacio ropriate for the race of the patient. Specimen Anatomical Collection Method Collection Time Receive d Time (Source) Location / / Volume Laterality 10/22/2014 7:08 AM 5 CDT 12:00 PM CDT Narrative HP CONVERSION - 10/22/2014 12:34 PM CDT Performed at [place] [address] [place] [address] Phi Steward MD LAB_1 Performing Organization Address [facility] Phon e Number HP CONVERSION Electrolyte Panel (10/22/2014 7:08 AM CDT) athologist Signature Sodium 142 137 - 147 HP CONVERSION mEq/L Potassium 3.9 3.5 - 5.2 HP CONVERSION mEq/L Chloride 105 98 - 110 HP CONVERSION mEq/L Bicarbonate 31 23 - 33 HP CONVERSION mmol/L Specimen Anatomical Collection Method Collection Time Receive d Time (Source) Location / / Volume Laterality 10/22/2014 7:08 AM 5 CDT 12:00 PM CDT Narrative HP CONVERSION - 10/22/2014 12:34 PM CDT Performed at [place] [address] [place] [address] Phi Steward MD LAB_1 Performing Organization Address [facility] Phon e Number HP CONVERSION documented in this encounter Visit Diagnoses Diagnosis Elevated blood pressure reading without diagnosis of hypertension ED (erectile dysfunction) Impotence of organic origin documented in this encounter Care Teams Clamp Truck Driver Relationship Specialty Start Date End Date Phi Steward MD PCP - General 09/14/10 [address] [place] [address] documented as of this encounter
--- OUTSIDE RECORDS SUMMARY | 2022-04-07 13:04 | XMS_ITS | Encounter Summary ---
:1975 Author Organization [facility] Address [address] [place] [address] Care Team Providers Name Role Phone Phi Steward MD Primary Care Provider Encounter Details Date Type Department Care Team Description 09/09/2008 Office Visit Damien Almeida La Phi Champagne MD [address] [facility] [place] [address] [place] [address] [phone] (Wo rk) Social History Tobacco Use Types Packs/Day Years Used Date Smoking Tobacco: Never Assessed Sex Assigned at Date Recorded Not on file documented as of this encounter Last Filed Vital Signs Vital Sign Reading Time Taken Comments Blood Pressure 138/84 09/09/2008 11:32 AM CDT Pulse 76 09/09/2008 11:32 AM CDT Temperature - - Respiratory Rate - - Oxygen Saturation - - Inhaled Oxygen Concentration - - Weight 108.5 kg (239 lb 2.8 oz) 09/09/2008 11:32 AM C: 108.5kg CDT Height - - Body Mass Index - - documented in this encounter Progress Notes Phi Steward MD - 09/09/2008 12:01 AM CDT Progress Notes signed by Phi Steward MD at 09/10/08 1144 Author: Phi Steward MD Service: (none) Author Type: Physician Filed: 10/03/10 1155 Note Time: 09/09/08 0001 Status: Signed Public Area Supervisor: Phi Steward MD (Physician) NAME: ANDRES LAMBERT MR#: [id number] ACCT: [id number] VISIT: [id number] DICTATING CLINICIAN: PHI STEWARD MD CONFIRM #: [id number] LOC: 3602 CLINIC PROGRESS NOTE DATE OF VISIT: 09/09/2008 SUBJECTIVE: : 1975. Luis is a 32-year-old male who comes in today with a chief complaint of abdominal pain. It has been on the left flank area. It started about a week ago. It has been adnn-rc-tzbccrxz in severity. Nothing seems to make it better or worse. It has been a little hard to sleep because of it. He has had a few bodyaches. No fevers, no diarrhea or constipation. No blood in the stools. No family history of gastrointestinal problems. No nausea or vomiting. It has been a constant discomfort. Does get a little bit better and worse relatively, but it has been pretty much there. He has had no history of kidney stones. He has had no urinary symptoms. No testicular discomfort. Does not go into the groin area. ADR/ALLERGIES: NONE. OBJECTIVE: VS: BP: 138/84. P: 76. Wt: 239.2 lb. GENERAL: Patient is in no acute distress. HEART: Regular rate and rhythm. No murmurs, gallops, or rubs. LUNGS: Clear to auscultation bilaterally. Normal respiratory effort. HEAD: Normal. Eyes: Normal conjunctivae and pupils. Oral cavity, throat, and dentition normal. NECK: Supple, nontender. No lymphadenopathy, no thyromegaly. SKIN: Normal to inspection and palpation. ABDOMEN: He has a little tenderness over the left lateral abdomen area. Otherwise, no tenderness. No guarding. No rebound. No masses. No hepatosplenomegaly. ASSESSMENT: Left-sided abdominal discomfort. PLAN: It is in the flank area. I did do a urinalysis today which was unremarkable. Differential would include musculoskeletal discomfort, viral infection, colitis, diverticulitis, kidney infection, and kidney stone. With the normal urinalysis, I am still going to do a urine culture to further evaluate things. If his symptoms get worse, he has increased discomfort, feels worse, has any fevers, even low-grade fevers, I told him to call me and I would set him up for a CT scan of the abdomen and pelvis with oral and IV contrast. Otherwise, if things are otherwise changing or worsening, then he should come back for further evaluation. [id number] C: 09/10/08 10:15 CONFIRM #: [id number] documented in this encounter Plan of Treatment Not on filedocumented as of this encounter Visit Diagnoses Not on filedocumented in this encounter Care Teams Algorithm Design Engineer Relationship Specialty Start Date End Date Phi Steward MD PCP - General 09/14/[address] [place] [address] documented as of this encounter
--- OUTSIDE RECORDS SUMMARY | 2022-04-07 13:04 | XMS_ITS | Encounter Summary ---
:1975 Author Organization [facility] Address [address] [place] [address] Care Team Providers Name Role Phone Phi Steward MD Primary Care Provider Encounter Details Date Type Department Care Team Description 05/28/2008 PN Conversion Only CHANELLE CONVERSIO [address] [place] [address] Social History Tobacco Use Types Packs/Day Years Used Date Smoking Tobacco: Never Assessed Sex Assigned at Date Recorded Not on file documented as of this encounter Plan of Treatment Not on filedocumented as of this encounter Visit Diagnoses Not on filedocumented in this encounter Care Teams Nursing Home Assistant Administrator Relationship Specialty Start Date End Date Phi Steward MD PCP - General 09/14/[address] [place] [address] documented as of this encounter
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
--- OUTSIDE RECORDS SUMMARY | 2022-04-07 13:04 | XMS_ITS | Encounter Summary ---
:1975 Author Organization [facility] Address [address] [place] [address] Care Team Providers Name Role Phone Phi Steward MD Primary Care Provider Encounter Details Date Type Department Care Team Description 12/24/2008 Office Visit [facility] [place] [address] [place] [address] [phone] Social History Tobacco Use Types Packs/Day Years Used Date Smoking Tobacco: Never Assessed Sex Assigned at Date Recorded Not on file documented as of this encounter Progress Notes Evelyn Carrera - 12/24/2008 12:01 AM CDT Progress Notes signed by Evelyn Carrera DPM at 01/02/09 0811 Author: Evelyn Carrera DPM Service: (none) Author Type: (none) Filed: 10/03/10 1441 Note Time: 12/24/08 0001 Status: Signed Fisheries Specialist: Evelyn Carrera DPM (Resource) NAME: ANDRES LAMBERT MR#: [id number] ACCT: [id number] VISIT: [id number] DICTATING CLINICIAN: EVELYN CARRERA DPM CONFIRM #: [id number] LOC: 3639 CLINIC PROGRESS NOTE DATE OF VISIT: 12/24/2008 SUBJECTIVE: Return visit for patient for followup plantar fascial strain, right. States that he continues to have discomfort, despite having been through a treatment course. Has had some improvement. Still uses the devices with good success, but finds that there is still discomfort. MEDICATIONS: Reviewed and updated in LastWord. ADR/ALLERGIES: REVIEWED AND UPDATED IN LASTWORD. OBJECTIVE: Exam reveals pedal pulses to be palpable. Distal sensorium is intact. Continued tenderness along the medial band of the plantar fascia in the proximal 1/2 right. No erythema. No edema. No nodularity noted. ASSESSMENT: Persistent plantar fascial strain, right. PLAN: Discussed treatment options with the patient. Would like to have his devices recovered. Does not want to be without them. We discussed potentially proceed with new orthotics devices, as for a 2nd pair as the current devices are a few years old. He would then like to proceed with the devices. Will check with insurance and schedule appointment for nurse casting visit only. Once he receives the new devices will try to get more aggressive in trying to reduce the discomfort. Did discuss potential for plantar fascial release if there is persistent discomfort. He understands all options. Will see him back as noted. [id number] C: 12/24/08 13:22 CONFIRM #: [id number] APEUTIC RECREATION DIRECTOR documented in this encounter Plan of Treatment Not on filedocumented as of this encounter Visit Diagnoses Not on filedocumented in this encounter Care Teams Crew Team Member Relationship Specialty Start Date End Date Phi Steward MD PCP - General 09/14/[address] [place], [place] [address] documented as of this encounter
--- OUTSIDE RECORDS SUMMARY | 2022-04-07 13:05 | XMS_ITS | Encounter Summary ---
:1975 Author Organization [facility] Address [address], [place] [address] Care Team Providers Name Role Phone Phi Steward MD Primary Care Provider Encounter Details Date Type Department Care Team Description 01/21/2002 PN Conversion Only [facility] [place] [address] Social History Tobacco Use Types Packs/Day Years Used Date Smoking Tobacco: Never Assessed Sex Assigned at Date Recorded Not on file documented as of this encounter Progress Notes Vadim Lugo MD - 01/21/2002 12:01 AM CDT Progress Notes signed by at 08/04/022016 Author: Vadim Lugo MD Service: (none) Author Type: (none) Filed: 10/01/10811 Note Time: 01/21/022016 Status: Signed Dairy Equipment Repairer: Vadim Lugo MD (Physician) IMPRESSION: Finger laceration, healed. Suture removal. SUBJECTIVE: No dictation. OBJECTIVE: N/A ASSESSMENT: Finger laceration, healed. Suture removal. PLAN: N/A TT: CT: [id number] C: DOCUMENT: [id number] Vy Warner MD - 01/14/2002 12:01 AM CDT Progress Notes signed by at 08/04/022016 Author: Vy Lazaro MD Service: (none) Author Type: Physician Filed: 10/01/10 0803 Note Time: 01/14/022016 Status: Signed Dairy Equipment Repairer: Vy Lazaro MD (Physician) IMPRESSION: A 36 mm laceration of the left third finger. This was closed with nine interrupted 5-0 Ethilon sutures. SUBJECTIVE: Chief Complaint: Laceration of the left middle finger. HPI: This is a pleasant 26-year-old who was helping a friend do some lucero this morning. He was up on the roof when the ladder shifted in the wet ground. In order to prevent falling, he reached out to grab onto the roof and caught the finger either on a tiffani nail or on the edge of the drain pipe. He said whatever it is would have been dirty or tiffani. His last tetanus was over five years ago. He basically just put something on to stop the bleeding and came in immediately. States that he has no numbness or tingling and really no pain in the finger, is able to move it okay. PAST MEDICAL HISTORY: Negative. MEDS: None. ADR/ALLERGIES: NONE. OBJECTIVE: VS/GEN: BP: 138/90. T: 97.3. P: 80. R: 16. Alert, cooperative and nontoxic, is very pleasant. SKIN: Examination of the left middle finger shows a laceration that is in a C-shape with a deep flap that comes up on the pad of the distal phalanx. This has a lot of debris and what looks like foreign matter in it just on initial inspection. On the fourth finger, he also has an abrasion that is at the DIP joint and distally approximately 1 cm in the length where the top skin was just ripped off there was a little bit of debris on that. COURSE IN THE URGENT CARE: Initially this was soaked in some Shur-Clens and sterile normal saline. Then I took a sponge and gently sponged the major dirt off of the rest of his hand as it was a bit dirty. Then under sterile technique I cleansed the base of the third finger with alcohol and infiltrated with 1% Lidocaine without epinephrine. Five cc was infiltrated at the base of the finger, and once anesthesia was obtained, then I draped him with sterile towels and using the magnifying glass I spent approximately 30 minutes taking debris out. There were two pieces of white material, which appeared to be part of the shingle and then a lot of black pieces, which may have been tar. These were somewhat adherent, and I had to pick most of them out or take out bits of tissue and cut them out. He had some bleeding with this, but tolerated it well. Then I began suturing. After about three or four sutures, he was starting to get some feeling back so I just infiltrated locally around the wound with 1% Lidocaine without epinephrine. Once anesthesia was obtained, then I finished sewing this. The C-shape laceration ended up being 36 mm total in length with 5 mm on the radial side then across the base there was 20 mm, then 4 mm and a little edge of 2 mm. This cut into the deep tissues, but I could not see the tendon. He had normal flexion and extension of the finger with good strength in both of those movements. Good capillary refill at the distal finger. ASSESSMENT: A 36 mm laceration of the left third finger. This was closed with nine interrupted 5-0 Ethilon sutures. PLAN: The area was then cleansed after the procedure and a sterile dressing with Bacitracin, Adaptic and a bulky dressing is placed. For the fourth finger, this was just rinsed off, and he should just keep an eye on that. I discussed signs and symptoms of infection that he should look out for and should come back should they occur. He will have suture removal in 7-10 days. Should keep it elevated and use prhs-[id number] analgesics as needed. He was updated on his tetanus immunization. 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 Follow up if he has any problems. TT: CT: [id number] C: DOCUMENT: [id number] TRE PROGRAM DIRECTOR documented in this encounter Plan of Treatment Not on filedocumented as of this encounter Visit Diagnoses Not on filedocumented in this encounter Care Teams Washer Meat Relationship Specialty Start Date End Date Phi Steward MD PCP - General 09/14/[address] [place] [address] documented as of this encounter
--- OUTSIDE RECORDS SUMMARY | 2022-04-07 13:05 | XMS_ITS | Encounter Summary ---
:1975 Author Organization [facility] Address [address] [place] [address] Care Team Providers Name Role Phone Phi Steward MD Primary Care Provider Encounter Details Date Type Department Care Team Description 10/29/2004 PN Conversion Only [facility] Social History Tobacco Use Types Packs/Day Years Used Date Smoking Tobacco: Never Assessed Sex Assigned at Date Recorded Not on file documented as of this encounter Plan of Treatment Not on filedocumented as of this encounter Visit Diagnoses Not on filedocumented in this encounter Care Teams Policy Cancellation Clerk Relationship Specialty Start Date End Date Phi Steward MD PCP - General 09/14/10 [address] [place] [address] documented as of this encounter
--- OUTSIDE RECORDS SUMMARY | 2022-04-07 13:05 | XMS_ITS | Encounter Summary ---
:1975 [facility] Address [address] [place] [address] Care Team Providers Name Role Phone Phi Steward MD Primary Care Provider Encounter Details Date Type Department Care Team Description 01/25/2006 Office Visit [facility] [place] [address] [place] [address] [phone] Social History Tobacco Use Types Packs/Day Years Used Date Smoking Tobacco: Never Assessed Sex Assigned at Date Recorded Not on file documented as of this encounter Progress Notes Evelyn Carrera - 01/25/2006 12:01 AM CDT Progress Notes signed by Evelyn Carrera DPM at 01/31/06 1501 Author: Evelyn Carrera DPM Service: (none) Author Type: (none) Filed: 10/02/10 1348 Note Time: 01/25/06 0001 Status: Signed Professor Of Business: Evelyn Carrera DPM (Physician) NAME: ANDRES LAMBERT MR: [id number] ACCT: [id number] VISIT: [id number] DICTATING CLINICIAN: EVELYN CARRERA DPM JOB: [id number] LOC: 4327 CLINIC PROGRESS NOTE DATE OF VISIT: 01/25/2006 SUBJECTIVE: Initial evaluation. Patient presents complaining of pain in the right arch. It started earlier in the year as part of an exercise program. Started running and noticing increasing pain in the right arch which has been going on for the last couple of months on a fairly pronounced level. Feels like there is a rock in his shoe at times. Has tried cutting back on activities and still finds that the pain is quite bothersome. Denies any past history of any previous injury to the area. Health is otherwise good. MEDICATIONS: Denies. ADR/ALLERGIES: DENIES. FAMILY HISTORY: Father with skin cancer. 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 COMPLETE REVIEW OF SYSTEMS: Cardiac, respiratory, digestive, urinary, neurologic, integumentary and psychiatric all noncontributory. OBJECTIVE: VS: Wt: 240 lb. Exam reveals healthy appearing 30-year-old male in no acute distress. Gait pattern is otherwise normal. In stance he shows mild pronatory changes. Pedal pulses are palpable, distal sensorium is intact. Muscle strength is 5/5 and equal bilateral. Joint range of motion within normal limits. Most of the discomfort is localized to the mid central area of the central band of the plantar fascia right. No nodularity, no ecchymosis, no erythema. There is significant tautness of the central band noted with the toes dorsiflexed. All other findings are unremarkable. ASSESSMENT: Symptomatic plantar fascial strain right. PLAN: Discussed etiology and treatment options with the patient. Discussed placing him in orthotic devices. Discussed expectations and limitations and he is in favor of this. He was casted this visit. Will see him back 2 to 3 weeks after he receives the devices; sooner if there are any problems or questions. DJP:[id number] C: 01/28/06 11:29 DOCUMENT: [id number] BAND OPERATOR documented in this encounter Plan of Treatment Not on filedocumented as of this encounter Visit Diagnoses Not on filedocumented in this encounter Care Teams Signal Maintainer Relationship Specialty Start Date End Date Phi Steward MD PCP - General 09/14/[address] [place], [place] [address] documented as of this encounter
--- OUTSIDE RECORDS SUMMARY | 2022-04-07 13:05 | XMS_ITS | Encounter Summary ---
:1975 Author Organization [facility] Address [address] [place] [address] Care Team Providers Name Role Phone Phi Steward MD Primary Care Provider Encounter Details Date Type Department Care Team Description 02/06/2007 Office Visit [facility] Chrissy Doherty PA-C [address] [place] [address] [place] [address] [phone] (Wo rk) Social History Tobacco Use Types Packs/Day Years Used Date Smoking Tobacco: Never Assessed Sex Assigned at Date Recorded Not on file documented as of this encounter Last Filed Vital Signs Vital Sign Reading Time Taken Comments Blood Pressure 144/92 02/06/2007 9:47 AM CDT Pulse 60 02/06/2007 9:47 AM CDT Temperature 37.2 ??C (99 ??F) 02/06/2007 9:47 AM CDT ORAL C: 37.2 C Respiratory Rate 12 02/06/2007 9:47 AM CDT Oxygen Saturation - - Inhaled Oxygen Concentration - - Weight - - Height - - Body Mass Index - - documented in this encounter Progress Notes Chrissy Doherty PA-C - 02/06/2007 12:01 AM CDT Progress Notes signed by Chrissy Doherty PA-C at 02/07/07 1105 Author: Chrissy Doherty PA-C Service: (none) Author Type: Physician Machine Set Up Technician Filed: [id number] Note Time: 02/06/07 0001 Status: Signed Junior Art Director: Chrissy Doherty PA-C (Physician Machine Set Up Technician) NAME: ANDRES LAMBERT MR#: [id number] ACCT: [id number] VISIT: [id number] DICTATING CLINICIAN: Chrissy Doherty PA-C JOB: [id number] LOC: 3620 CLINIC PROGRESS NOTE DATE OF VISIT: 02/06/2007 SUBJECTIVE: : 1975. CHIEF COMPLAINT: Right toe pain. HPI: Andres is a 31-year-old male who states that he hit his right middle toe on a door yesterday. He states that since that time, he has had pain but only when he is ambulating and putting pressure on that toe. With pressure and ambulation, his pain is rated a 6/10. No pain currently. States that the pain will increase with ambulation. No radiation of the pain. He has noticed some swelling and bruising of that toe. States that this does not feel like it is broken. He has tried ice and Advil with good relief of his symptoms. No other area of injury. Describes the pain as an achy pain. REVIEW OF SYSTEMS: Pertinent positives in HPI. Otherwise, complete review of systems otherwise negative. PAST MEDICAL HISTORY: Unremarkable. MEDICATIONS: Reviewed and updated in LastWord. ADR/ALLERGIES: NONE. SOCIAL HISTORY: Denies smoking. OBJECTIVE: VS: BP: 144/92. T: 99.0. P: 60. R: 12. GENERAL: Pleasant, interactive, white male in no acute distress. CARDIOVASCULAR: Regular rate and rhythm. No murmurs, rubs or gallops. LUNGS: Clear to auscultation bilaterally. Good air flow throughout all lung barth. Normal effort. EXTREMITIES: He does have mild swelling and ecchymosis noted of the right 5th phalanx. Tenderness to palpation over this phalanx area but negative longitudinal compression test. Capillary refill is instantaneous. He is able to wiggle his toe with minimal discomfort. No tenderness to palpation over the midfoot. He is able to ambulate and does not appear to have any pain with ambulation. He does have tenderness to palpation with valgus stress testing of the right 5th phalanx. Negative varus stress testing. X-ray was obtained today which according to my interpretation does not show any fracture or dislocation. ASSESSMENT: 1. Right toe sprain. PLAN: Discussed with him to kiara-tape this toe. Can use ice and Advil for the pain and swelling. Encouraged him to use pain as his guide and to avoid strenuous activities for the next 3-4 days. Followup as needed. ALB:[id number] C: 02/06/07 20:54 DOCUMENT: [id number] documented in this encounter Plan of Treatment Not on filedocumented as of this encounter Procedures Procedure Name Priority Date/Time Associated Diagnosis Comme nts XR TOE LT 5TH Routine 02/06/2007 10:39 AM Results for this LITTLE 3 VIEWS CDT procedure are in the results section. documented in this encounter Results XR Toe Lt 5th Little 3 Views (02/06/2007 10:39 AM CDT) Anatomical Region Laterality Modality Lower Extremity, Foot, Foot & Ankle Othe r Specimen (Source) Anatomical Location Collection Method / Collectio n Time Received Time / Laterality Volume Narrative 02/06/2007 10:39 AM CDT INDICATION: ??Pain. FINDINGS: ??No fractures or dislocations are identified. [id number] Dictating HIEU KING DO Procedure Note Hieu Walker, DO - 08/19/2016For matting of this note might be different from the original. INDICATION: Pain. FINDINGS: No fractures or dislocations a re identified. [id number] Dictating HIEU KING DO Chrissy Doherty PA-C RAD GD documented in this encounter Visit Diagnoses Not on filedocumented in this encounter Care Teams Call Circuit Worker Relationship Specialty Start Date End Date Phi Steward MD PCP - General 09/14/10 [address] [place] [address] documented as of this encounter
--- OUTSIDE RECORDS SUMMARY | 2022-04-07 13:05 | XMS_ITS | Encounter Summary ---
:1975 Author Organization [facility] Address [address] [place] [address] Care Team Providers Name Role Phone Phi Steward MD Primary Care Provider Encounter Details Date Type Department Care Team Description 08/21/2007 PN Conversion Only [facility] [address] [place] [address] Social History Tobacco Use Types Packs/Day Years Used Date Smoking Tobacco: Never Assessed Sex Assigned at Date Recorded Not on file documented as of this encounter Plan of Treatment Not on filedocumented as of this encounter Visit Diagnoses Not on filedocumented in this encounter Care Teams Bottomer Operator Relationship Specialty Start Date End Date Phi Steward MD PCP - General 09/14/[address] [place] [address] documented as of this encounter
--- OUTSIDE RECORDS SUMMARY | 2022-04-07 13:05 | XMS_ITS | Encounter Summary ---
:1975 Author Organization [facility] Address [address] [place] [address] Care Team Providers Name Role Phone Phi Steward MD Primary Care Provider Encounter Details Date Type Department Care Team Description 03/15/2006 Office Visit [facility] [place] [address] [place] [address] [phone] Social History Tobacco Use Types Packs/Day Years Used Date Smoking Tobacco: Never Assessed Sex Assigned at Date Recorded Not on file documented as of this encounter Progress Notes Evelyn Carrera - 03/15/2006 12:01 AM CDT Progress Notes signed by Evelyn Carrera DPM at 03/29/06 0919 Author: Evelyn Carrera DPM Service: (none) Author Type: (none) Filed: 10/02/10 1444 Note Time: 03/15/06 0001 Status: Signed Adobe Layer Helper: Evelyn Carrera DPM (Physician) NAME: ANDRES LAMBERT MR: [id number] ACCT: [id number] VISIT: [id number] DICTATING CLINICIAN: EVELYN CARRERA DPM JOB: [id number] LOC: 3639 CLINIC PROGRESS NOTE DATE OF VISIT: 03/15/2006 SUBJECTIVE: Return visit for patient for followup of orthotic devices for right plantar fasciitis and plantar fascial strain. States that since receiving the devices things have been going much better, having less discomfort overall. He has had the new devices 3-4 weeks. MEDICATIONS: Denies. ADR/ALLERGIES: DENIES. OBJECTIVE: Exam reveals the orthotics devices to be fitting well. No erythema and no edema. There is slight irritation in the medial right arch from use with running, this is doing well otherwise. There is no abnormality noted otherwise. There is decreased tenderness along the medial band of the plantar fascia. All other findings unremarkable. ASSESSMENT: Plantar fascial strain, right. PLAN: Continue with the devices. Generally he is doing quite well overall. Will start physical therapy 2-3 times a week. Placed him on sulindac 200 mg b.i.d. Will have him see me back in 3 weeks for recheck, sooner if there are any problems or questions. DJP:[id number] C: 03/16/06 13:00 DOCUMENT: [id number] CASTER documented in this encounter Plan of Treatment Not on filedocumented as of this encounter Visit Diagnoses Not on filedocumented in this encounter Care Teams Rod Puller Relationship Specialty Start Date End Date hPi Steward MD PCP - General 09/14/[address] [place], [place] [address] documented as of this encounter
--- OUTSIDE RECORDS SUMMARY | 2022-04-07 13:05 | XMS_ITS | Encounter Summary ---
:1975 Author Organization [facility] Address [address], [place] [address] Care Team Providers Name Role Phone Phi Steward MD Primary Care Provider Encounter Details Date Type Department Care Team Description 11/02/2004 PN Conversion Only Atul Carbajal MD [address] [place] [address] (Wo rk) Social History Tobacco Use Types Packs/Day Years Used Date Smoking Tobacco: Never Assessed Sex Assigned at Date Recorded Not on file documented as of this encounter Plan of Treatment Not on filedocumented as of this encounter Procedures Procedure Name Priority Date/Time Associated Diagnosis Comme nts GLUCOSE Routine 11/02/2004 9:53 AM Results f or this CDT procedure are i n the results section. LIPID PANEL AND Routine 11/02/2004 9:53 AM Result s for this DIRECT LDL(IF CDT procedure are in NEEDED) the results section. documented in this encounter Results Glucose (11/02/2004 9:53 AM CDT) P athologist Signature Length Of Fast 12.0 Hours HP CONVERSION Lab Glucose 93 60 - 100 HP CONVERSION mg/dL Specimen (Source) Anatomical Collection Method Collection Time Re ceived Time Location / / Volume Laterality 11/02/2004 9:53 AM CDT Phi Steward MD LAB_1 Performing Organization Address City/State/ZIP Code Phon e Number HP CONVERSION (ABNORMAL) Lipid Panel and Direct LDL(If Needed) (11/02/2004 9:53 AM CDT) [facility] gist Method Time Signature Length Of Fast 12.0 Hours HP CONVERSION Cholesterol/HDL 3.6 No normal HP CONVERSION Ratio Screen range Cholesterol 138 <200 mg/dL HP CONVERSION HDL Cholesterol 38 (L) 40 - 60 HP CONVERSION mg/dL Comment: Desirable: >39 mg/dL Higher risk: <40 mg/dL Triglycerides 278 (H) 0 - 149 mg/dL HP CONVERSIO N Comment: Borderline high: 150-199 mg/dL High risk: 200-499 mg/dL Very high risk: 500 mg/dL or greater LDL Calculated 44 0 - 130 mg/dL HP CONVERSI ON Comment: Specimen (Source) Anatomical Collection Method Collection Time Re ceived Time Location / / Volume Laterality 11/02/2004 9:53 AM CDT Phi Steward MD LAB_1 Performing Organization Address City/State/ZIP Code Phon e Number HP CONVERSION documented in this encounter Visit Diagnoses Not on filedocumented in this encounter Care Teams Collar Stitcher Relationship Specialty Start Date End Date Phi Steward MD PCP - General 09/14/[address] [place] [address] documented as of this encounter
--- OUTSIDE RECORDS SUMMARY | 2022-04-07 13:05 | XMS_ITS | Encounter Summary ---
:1975 Author Organization [facility] Address [address] [place] [address] Care Team Providers Name Role Phone Phi Steward MD Primary Care Provider Encounter Details Date Type Department Care Team Description 10/07/2006 Office Visit [facility] Heather Limon DPM [address] [address] [place] [address] [phone] Social History Tobacco Use Types Packs/Day Years Used Date Smoking Tobacco: Never Assessed Sex Assigned at Date Recorded Not on file documented as of this encounter Progress Notes Tomas Limon DPM - 10/07/2006 12:01 AM CDT Progress Notes signed by Tomas Limon DPM at 10/10/06 1422 Author: Tomas Limon DPM Service: (none) Author Type: Physician Filed: 10/02/10 1855 Note Time: 10/07/06 0001 Status: Signed Cloth Dye Range Operator: Tomas Limon DPM (Physician) NAME: ANDRES LAMBERT MR#: [id number] ACCT: [id number] VISIT: [id number] DICTATING CLINICIAN: Tomas Limon DPM JOB: [id number] LOC: 3637 CLINIC PROGRESS NOTE DATE OF VISIT: 10/07/2006 SUBJECTIVE: The patient is returning to clinic. He saw Dr. Renny Carrera, in 03/2006 for plantar fasciitis. Was given a pair of orthotics at that time. He states the orthotics have helped, but his pain has not resolved. He still feels like he is walking on a rock in his shoe under his right arch. Denies any redness, open wounds or ulcerations. He is without any other current concerns. MEDICATIONS: No medications. ADR/ALLERGIES: NO KNOWN DRUG ALLERGIES. OBJECTIVE: A 30-year-old male, pleasant, healthy appearing, in some acute distress. He is alert and oriented times three. Distal neurologic sensation are grossly intact and pedal pulses are palpable bilaterally. He continues to have tenderness with palpation of the medial band of the plantar fascia on the right foot only. There is no palpable margins or deficits identified. There is no skin discoloration or edema present. ASSESSMENT: Plantar fascial strain, right. PLAN: Discussed treatment options and alternatives with the patient. Given his huge success with the orthotics, albeit incomplete. I am going to recommend he proceed ahead with using the orthotics and a course of physical therapy. A referral was given him today. He is going to follow-up with me in 1 month if any problems still persist. CHS:[id number] C: 10/10/06 12:12 DOCUMENT: [id number] documented in this encounter Plan of Treatment Not on filedocumented as of this encounter Visit Diagnoses Not on filedocumented in this encounter Care Teams City Assessor Relationship Specialty Start Date End Date Phi Steward MD PCP - General 09/14/10 [address] [place] [address] documented as of this encounter
--- OUTSIDE RECORDS SUMMARY | 2022-04-07 13:05 | XMS_ITS | Encounter Summary ---
:1975 Author Organization [facility] Address [address] [place] [address] Care Team Providers Name Role Phone Phi Steward MD Primary Care Provider Encounter Details Date Type Department Care Team Description 10/10/2006 Therapy [facility] [address] [facility] [place] [id number] Social History Tobacco Use Types Packs/Day Years Used Date Smoking Tobacco: Never Assessed Sex Assigned at Date Recorded Not on file documented as of this encounter Plan of Treatment Not on filedocumented as of this encounter Visit Diagnoses Not on filedocumented in this encounter Care Teams Filling Winder Relationship Specialty Start Date End Date Phi Steward MD PCP - General 09/14/10 [address] [place] [address] documented as of this encounter
--- OUTSIDE RECORDS SUMMARY | 2022-04-07 13:05 | XMS_ITS | Encounter Summary ---
:1975 [facility] Address [address] [place] [address] Care Team Providers Name Role Phone Phi Steward MD Primary Care Provider Encounter Details Date Type Department Care Team Description 01/06/2006 Office Visit Damien Almeida Ny Phi Champagne MD [address] [facility] [place] [address] [place] [address] [phone] (Wo rk) Social History Tobacco Use Types Packs/Day Years Used Date Smoking Tobacco: Never Assessed Sex Assigned at Date Recorded Not on file documented as of this encounter Last Filed Vital Signs Vital Sign Reading Time Taken Comments Blood Pressure 136/90 01/06/2006 1:12 PM CDT Pulse 56 01/06/2006 1:12 PM CDT Temperature - - Respiratory Rate - - Oxygen Saturation - - Inhaled Oxygen Concentration - - Weight 110.2 kg (242 lb 15.9 01/06/2006 1:12 PM C: 110. 2kg oz) CDT Height - - Body Mass Index - - documented in this encounter Progress Notes Phi Steward MD - 01/06/2006 12:01 AM CDT Progress Notes signed by Phi Steward MD at 01/10/06 1248 Author: Phi Steward MD Service: (none) Author Type: Physician Filed: 10/02/10 1327 Note Time: 01/06/06 0001 Status: Signed Bathroom Tiling Professional: Phi Steward MD (Physician) NAME: ANDRES LAMBERT MR: [id number] ACCT: [id number] VISIT: [id number] DICTATING CLINICIAN: PHI STEWARD MD JOB: [id number] CLINIC PROGRESS NOTE DATE OF VISIT: 01/06/2006 SUBJECTIVE: : 1975. Luis is a 30-year-old male who comes in today with complaint of right foot pain. He says that when he runs on it, it feels like he is stepping on a marble. He has tried to rest it, but it really has not helped. It has been about the same with time. Moderate in severity. He has had no numbness, tingling, or weakness in the extremities. He says that he started working out more around the holidays and it has been more recently over the last couple of months that he has noticed some of this. It is not with the first steps out of bed. ADR/ALLERGIES: NONE. OBJECTIVE: VS: BP: 156/90. P: 56. Wt: 243 lb. GENERAL: Patient is in no acute distress. CARDIOVASCULAR: Regular rate and rhythm. No murmurs, gallops, or rubs. LUNGS: Clear to auscultation bilaterally. Normal respiratory effort. Feet: The patient has tenderness over the plantar aspect of the right foot over the mid arch. No other abnormalities are noted. X-rays of the right foot are unremarkable. ASSESSMENT: Right foot pain. PLAN: The patient is going to be sent to podiatry for further evaluation and treatment considerations. I do not know if he would benefit from an orthotic, or just needs, perhaps, some stretching or PT. Current problem is affecting his ability to run and do things that he enjoys. It is a moderate problem, prognosis currently unknown. SJC:[id number] C: 01/07/06 21:36 DOCUMENT: [id number] documented in this encounter Plan of Treatment Not on filedocumented as of this encounter Procedures Procedure Name Priority Date/Time Associated Diagnosis Comme nts XR FOOT RT 3+ VIEWS Routine 01/06/2006 2:03 PM Re sults for this CDT procedure are i n the results section. documented in this encounter Results XR Foot Rt 3+ Views (01/06/2006 2:03 PM CDT) Anatomical Region Laterality Modality Lower Extremity, Foot Other Specimen (Source) Anatomical Location Collection Method / Collectio n Time Received Time / Laterality Volume Narrative 01/06/2006 2:03 PM CDT No fracture is seen. ??Smoothly marginated calcified density distal to the tip of the medial malleolus could re present an old avulsed fracture fragment with nonunion. ??Mild hallux valgus is noted at the right 1st MTP joint. ??No other abnormal ity is seen. [facility]/ [id number] Dictating DESIREE ROTH RADIOLOGIST Procedure Note Jodi Licea - 08/19/2016 No fracture is seen. Smoothly marginated calcified density distal to the tip of the medial malleolus could re present an old avulsed fracture fragment with nonunion. Mild george llux valgus is noted at the right 1st MTP joint. No other abnormalit y is seen. [facility]/ [id number] Dictating DESIREE ROTH RADIOLOGIST Phi Steward MD RAD GD documented in this encounter Visit Diagnoses Not on filedocumented in this encounter Care Teams Information Clerk Cashier Relationship Specialty Start Date End Date Phi Steward MD PCP - General 09/14/10 [address] [place] [address] documented as of this encounter
--- OUTSIDE RECORDS SUMMARY | 2022-04-07 13:05 | XMS_ITS | Encounter Summary ---
:1975 Author Organization [facility] Address [address], [place] [address] Care Team Providers Name Role Phone Phi Steward MD Primary Care Provider Reason for Visit Reason Comments Other Encounter Details Date Type Department Care Team Description 02/21/2006 Telephone [facility] Rosario Nieves RN Other [address] [place] [address] Social History Tobacco Use Types Packs/Day Years Used Date Smoking Tobacco: Never Assessed Sex Assigned at Date Recorded Not on file documented as of this encounter Progress Notes Rosario Ortiz RN - 02/21/2006 9:58 AM CDT Phone Note filed by Rosario Ortiz RN at 09/29/10824 Author: Rosario Ortzi RN Service: (none) Author Type: Registered Nurse Filed: 09/29/10824 Note Time: 02/21/06957 Status: Signed [place] [place] [employer] [place]: Rosario Ortiz RN (Registered Nurse) Pt calling to see if his orthotics have come in yet. Call back number is [phone]. Created on 21Feb2006 9:58am by ROSARIO ORTIZ I On 21Feb2006 10:15am ROSARIO ORTIZ I wrote: I checked and pts orthotics are in, I left message that they were in. Acknowledged by ROSARIO ORTIZ I on 10:15am SROOM MONITOR documented in this encounter Plan of Treatment Not on filedocumented as of this encounter Visit Diagnoses Not on filedocumented in this encounter Care Teams Public Administration Teacher Relationship Specialty Start Date End Date Phi Steward MD PCP - General 09/14/[address] [place], [place] [address] documented as of this encounter
--- OUTSIDE RECORDS SUMMARY | 2022-04-07 13:05 | XMS_ITS | Encounter Summary ---
:1975 Author Organization [facility] Address [address] [place] [address] Care Team Providers Name Role Phone Phi Steward MD Primary Care Provider Encounter Details Date Type Department Care Team Description 01/05/2006 PN Conversion Only CHANELLE CONVERSIO [address] [place] [address] Social History Tobacco Use Types Packs/Day Years Used Date Smoking Tobacco: Never Assessed Sex Assigned at Date Recorded Not on file documented as of this encounter Plan of Treatment Not on filedocumented as of this encounter Visit Diagnoses Not on filedocumented in this encounter Care Teams Plant Safety Leader Relationship Specialty Start Date End Date Phi Steward MD PCP - General 09/14/[address] [place] [address] documented as of this encounter
--- OUTSIDE RECORDS SUMMARY | 2022-04-07 13:05 | XMS_ITS | Encounter Summary ---
:1975 Author Organization [facility] Address [address] [address] Care Team Providers Name Role Phone Phi Steward MD Primary Care Provider Encounter Details Date Type Department Care Team Description 11/03/2004 Band Splitter Only Phi Craven, [facility] [address] [facility] [place] [address] [place] [phone] (Wo rk) Social History Tobacco Use Types Packs/Day Years Used Date Smoking Tobacco: Never Assessed Sex Assigned at Date Recorded Not on file documented as of this encounter Progress Notes Phi Steward MD - 11/03/2004 12:01 AM CDT Progress Notes signed by Phi Steward MD at 11/03/04 1535 Author: Phi Steward MD Service: (none) Author Type: Physician Filed: 10/02/10 0507 Note Time: 11/03/04 0001 Status: Signed Board Design Engineer: Phi Steward MD (Physician) pt sent info as trigs high, hdl slightly low, ldl very good -- recheck in one year documented in this encounter Plan of Treatment Not on filedocumented as of this encounter Visit Diagnoses Not on filedocumented in this encounter Care Teams Qa Automation Developer Relationship Specialty Start Date End Date Phi Steward MD PCP - General 09/14/[address] [place] [address] documented as of this encounter
--- OUTSIDE RECORDS SUMMARY | 2022-04-07 13:05 | XMS_ITS | Encounter Summary ---
:1975 Author Organization [facility] Address [address] [place] [address] Care Team Providers Name Role Phone Phi Steward MD Primary Care Provider Encounter Details Date Type Department Care Team Description 11/02/2004 Office Visit Jaja Almeida Andrey Steward MD [address] [place] [address] (Wo rk) Social History Tobacco Use Types Packs/Day Years Used Date Smoking Tobacco: Never Assessed Sex Assigned at Date Recorded Not on file documented as of this encounter Last Filed Vital Signs Vital Sign Reading Time Taken Comments Blood Pressure 144/96 11/02/2004 9:17 AM CDT Pulse 66 11/02/2004 9:17 AM CDT Temperature - - Respiratory Rate - - Oxygen Saturation - - Inhaled Oxygen Concentration - - Weight 111.1 kg (245 lb) 11/02/2004 9:17 AM CDT C: 111. 1kg Height - - Body Mass Index - - documented in this encounter Progress Notes Phi Steward MD - 11/02/2004 12:01 AM CDT Progress Notes signed by Phi Steward MD at 11/03/04 1256 Author: Phi Steward MD Service: (none) Author Type: Physician Filed: 10/02/10 0506 Note Time: 11/02/04 0001 Status: Signed Video Producer: Phi Steward MD (Physician) NAME: ANDRES LAMBERT MR: [id number] ACCT: [id number] VISIT: [id number] DICTATING CLINICIAN: PHI STEWARD MD JOB: [id number] CLINIC PROGRESS NOTE DATE OF VISIT: 11/02/2004 SUBJECTIVE: : 1975. Luis is a 28-year-old male who comes in today for a full physical and has one other special concern to address with physician which is that of hypertension. The patient has had some borderline elevated blood pressure in the past. Particularly the diastolic reading has been elevated in the past. He has not been keeping an eye on this but has noted that he is above both systolically and diastolically today (see below). He denies any chest pain or shortness of breath. REVIEW OF SYSTEMS: Complete and unremarkable. PAST MEDICAL HISTORY: History of borderline elevated blood pressure diastolically. FAMILY HISTORY: Father is alive at age 54 with hypertension, elevated cholesterol and melanoma. Mother is alive at age 55 with no medical problem. Sister with no medical problems. Patient has no coronary artery disease in the family. He does have diabetes in a maternal grandmother and maternal grandfather had lung cancer. 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 He lives with a roommate. He does have a significant other. He is originally from [facility]. He went to [facility]. He has never been a smoker. He has 5-6 drinks per week. ADR/ALLERGIES: NONE. MEDICATIONS: NONE. OBJECTIVE: VS: BP: 144/96. P: 66. R: 14. Ht: 6 ft 1-1/2 in. Wt: 245 lb. GENERAL: Patient is in no acute distress. Affect is normal. SKIN: Normal to inspection. Normal to palpation. HEAD: Normal eyes, normal conjunctivae, pupils and fundi. Tympanic membranes normal. Nose normal. Oral cavity, throat and dentition normal. NECK: Supple, nontender. No lymphadenopathy. No thyromegaly. No carotid bruits. LUNGS: Clear to auscultation bilaterally. Normal respiratory effort. BREASTS: Normal. HEART: Regular rate and rhythm. No murmurs, gallops, or rubs. ABDOMEN: Soft, nontender. No masses. No hepatosplenomegaly. No abdominal hernia. PELVIC: Normal male genitalia. Penis is normal. Testicles are normal. No inguinal hernia. No inguinal lymphadenopathy. NEURO: Non focal. EXTREMITIES: Normal to inspection. No edema in all four extremities. ASSESSMENT: 1. Normal adult health maintenance exam except as noted below. The patient thought his last Tetanus shot was more than ten years ago but upon further recollection, he says that he had one about 2-3 years ago so he was not updated today. He will be due in around 2011. The patient is going to have a lipid profile and glucose test done today. Goal LDL less than 160. As his only risk factor for heart disease is borderline hypertension. 2. Elevated blood pressure reading. The patients blood pressure reading today was elevated. He has been elevated. He has been elevated diastolically in the past. I told him to check ten readings and if he has more than three that are greater than 140/90, for him to bring all of the readings back so we can decide if he does have high blood pressure or not. If so, he will need an EKG and some labs. I told him to work on diet at this point and exercise, weight loss and he is going to work on these things and we will see him again if his readings are elevated. PLAN: See assessment. [facility]:[id number] C: 11/02/04 18:53 DOCUMENT: [id number] documented in this encounter Plan of Treatment Not on filedocumented as of this encounter Visit Diagnoses Not on filedocumented in this encounter Care Teams Final Canoe Inspector Relationship Specialty Start Date End Date Phi Steward MD PCP - General 09/14/[address] [place] [address] [place] [address] documented as of this encounter
--- OUTSIDE RECORDS SUMMARY | 2022-04-07 13:05 | XMS_ITS ---
:1975 Author Care Team Providers Name Role Phone EVELYN BROWNING MD Primary Care Provider [phone] Allergies Code Code System Name Reaction Severity Status Onset NKDA ? Medications Name Status Start Date Stop Date ? ? cefadroxil 500 mg capsule Active ? Not av ailable Take 2 capsules every day by oral route as directed for 3 days. cyclobenzaprine 10 mg tablet Completed ? TAKE ONE TABLET BY MOUTH AT BEDTIME NEEDED ibuprofen 800 mg tablet Completed ? 07/03/19 21 TAKE ONE TABLET BY MOUTH THREE TIMES A DAY WITH FOOD lisinopril 10 mg-hydrochlorothiazide 12.5 mg tablet Active ? Not available TAKE ONE TABLET BY MOUTH EVERY DAY prednisone 20 mg tablet Completed ? 07/03/19 21 tramadol 50 mg tablet Active ? Not availa ble Take 1 tablet every 6 hours by oral route as needed for 30 days . Problems None recorded. Procedures Date Name Performed by ? 07/18/2020 Vasectomy Information not avai lable Results Lab Results None recorded. Past Encounters None recorded. Social History Tobacco Smoking Status Never Smoker Vaccine List None recorded. Plan of Care Reminders Provider Appointments None recorded. ? ? Lab None recorded. ? ? Referral None recorded. ? ? Procedures None recorded. ? ? Surgeries None recorded. ? ? Imaging None recorded. ? ? Vitals 07/18/2020 01:30PM VASECTOMY 20 Height 6 ft 1 in 07/03/2020 01:30PM NEW PATIENT 10 Height Weight BMI 6 ft 1 in 240 lbs 31.7 kg/m2
[2022-04-07 15:03] LABS: Chloride* 103 mmol/L (96-114); Potassium* 4.2 mmol/L (3.6-5.1); Sodium* 137 mmol/L (135-149)
[2022-04-07 15:05] LABS: Cholesterol* 200 mg/dL (90-199)
[2022-04-07 15:06] LABS: Blood Urea Nitrogen* 21 mg/dL (5-24); Calcium* 9.1 mg/dL (8.4-10.6); Carbon Dioxide* 26 mmol/L (20-32); Creatinine* 1.1 mg/dL (0.5-1.5); Estimated Glomerular Filt Rate 84 ml/min; HDL Cholesterol* 43 mg/dL (>=40); LDL Cholesterol Calculated 111 mg/dL (<100); Triglycerides* 229 mg/dL (40-149)
[2022-04-07 15:15] LABS: Glucose* 90 mg/dL (60-115)
== END 2022-04-07 12:56 | disposition home or self-care (01) ==
PROVIDERS: PCP Family Medicine; Visit Provider Family Medicine
DX: I10 Essential (primary) hypertension (principal); Z13.6 Encounter for screening for cardiovascular disorders
CPT/HCPCS: 80048; 80061

== ENCOUNTER 2023-02-21 10:52 | Outpatient (CLI) | payer OTHER, SELFPAY ==
[2023-02-21 13:45] LABS: Cholesterol* 223 mg/dL (90-199); HDL Cholesterol* 41 mg/dL (>=40); LDL Cholesterol Calculated 123 mg/dL (<100); Triglycerides* 296 mg/dL (40-149)
== END 2023-02-21 10:53 | disposition home or self-care (01) ==
PROVIDERS: PCP Family Medicine; Visit Provider Family Medicine
DX: I10 Essential (primary) hypertension (principal); R79.89 Other specified abnormal findings of blood chemistry
CPT/HCPCS: 80048; 80061

== ENCOUNTER 2023-12-28 11:12 | Outpatient (CLI) | payer OTHER, SELFPAY ==
--- OUTSIDE RECORDS SUMMARY | 2023-12-28 11:14 | XMS_ITS | Data Portability ---
Author Organization [place] [facility] Address [address] [facility] [address] [place] [address] Care Team Providers Care Shoe Coverer Name Role Phone EVELYN BROWNING Primary Care Provider Assessment Encounter Date Assessment Date Assessment LastModified by Organization Details LastModified Time 07/03/2020 07/03/2020 44 y/o HERE TO DISCUSS VASECTOMY. PROCEDURE EXPLAINED IN DETAIL. EXAM VAS PRESENT BILATERALLY. BOOKLET GIVEN PROCEDURE EXPLAINED, RISKS, COMPLICATIONS , NEED FOR FOLLOWUP. 20 MIN Not available 07/03/2020 14:42:43 07/18/2020 07/18/2020 44 Y/O MALE, HERE FOR VASECTOMY. PROCEDURE WENT WELL. PLAN RUTINE POST PROCEDURE INSTRUCTIONS, SCRIPTS, AND FOLLOWUP. Not available 07/19/2020 12:52:21 Plan of Treatment Reminders Order Date Submit Date Provider Last Modified By Organization Details Last Modified Time Details Appointments None record ed. Lab None record ed. Referral None record ed. Procedures None record ed. Surgeries None record ed. Imaging None record ed. Medication Orders None record ed. Patient TargetsNo targets recorded. Patient Instructions Encounter Date Encounter Id Patient Instructions Last Modified By Organization Details Last Modified Time 07/03/2020 [id number] VAS PROCEDURE Not available 0 07/03/2020 14:43:04 Reason for Referral None Reported. Results Created Date Observation Date Name Description Value Unit Range Abnormal Flag LastModifiedBy Organization Detail LastModifiedTime 06/24/1906/24/2022 POST VAS vasectomy procedure date 2020 Not Available [facility] [address], [place], [address], 06/24/2022 19:28:58 06/24/19 23 06/24/2022 POST VAS post vas # 1 Not Available [facility] [address] [facility] [address], [place], [address], 06/24/2022 19:28:58 06/24/19 23 06/24/2022 POST VAS post vas sperm NEGATI VE negati ve Not Available [facility] [address] [place] [address] [address], [place], [address], 06/24/2022 19:28:58 06/24/19 23 06/24/2022 POST VAS pv WBC 0-2/HP F [hpf] Not Available [facility] [address] [address], [place], [address], 06/24/2022 19:28:58 06/24/19 23 06/24/2022 POST VAS notification RESULT S TO PROVID ER FOR REVIEW Not Available [facility] [address], [place], [address], 06/24/2022 19:28:58 Result Notes None recorded. Procedures Surgical History Date Name Laterality Status Provider Name and Address Organization Details Recorded Time 1 RU Vasectomy completed Best Butt MD [address] [facility], [place], [address], [facility] 07/19/2020 12:50:50 Vasectomy completed Phi hamilton [facility] 07/18/2020 14:46:09 Imaging Results None recorded. Procedure Notes None recorded. Medical Equipment None Reported. Allergies No known drug allergies Medications Name Sig Start Date Stop Date Status Note LastModified by Organization Details LastModified Time cyclobenzap rine 10 mg tablet TAKE ONE TABLET BY MOUTH AT BEDTIME NEEDED 07/03 completed Not Available Not Available Not Available ibuprofen 800 mg tablet TAKE ONE TABLET BY MOUTH THREE TIMES A DAY WITH FOOD 07/03 completed Not Available Not Available Not Available prednisone 20 mg tablet 07/03 completed Not Available Not Available Not Available tramadol 50 mg tablet Take 1 tablet every 6 hours by oral route as needed for 30 days. 2020 active Not Available Not Available Not Avai lable cefadroxil 500 mg capsule Take 2 capsules every day by oral route as directed for 3 days. 2020 active Not Available Not Available Not Avai lable lisinopril 10 mg-hydrochl orothiazide 12.5 mg tablet TAKE ONE TABLET BY MOUTH EVERY DAY active Not Available Not Available No t Available Vitals Date Recorded Body height Body mass index (BMI) Body weight Provider Name and Address Organization Details Last Updated DateTime 07/03/2020 185.42 cm 31.7 kg/m2 902226.17 g Best Butt MD [address] [place] [address],[facility] [address], [place], [address] 07/03/2020 14:30:52 Date Recorded Body height Provider Name an d Address Organization Details Last Updated DateTime 07/18/2020 185.42 cm Phi Pack [facility] 0 07/18/2020 14:45:56 Social History Question Answer Notes LastModified by Organizat ion Details LastModified Time Tobacco Smoking Status Never Smoker Best Butt MD [address] [place] [address],[address], [address] 07/03/2020 14:31:57 What Was The Date Of Your Most Recent Tobacco Screening? 07/03/2020 Information not available 07/03/2020 Sex: Unknown Functional Status None recorded. Mental Status None recorded. Family History Nothing Reported. Medical History Condition Response Sexually Transmitted Infection N Diabetes N Other N Bleeding Disorder N High Blood Pressure Y Kidney Stones N High Cholesterol N GERD/Acid Reflux N Heart Disease N Cancer N Depression N Lung Disease N Past Encounters Encounter ID Performer Location Encounter Start Date Encounter Closed Date Diagnosis/Indication Diagnosis SNOMED-CT Code [id number] MD BERE [facility] [address] [place] [id number] 07/03/2020 14:21:56 07/03/2020 16:19:46 Vasectomy requested [id number] Phi BLACKBURN_Mar[facility] [address] [place] [id number] 07/18/2020 14:32:01 07/22/2020 03:53:01 [id number] Best Butt MD [facility] [address] [place] [id number] 07/18/2020 14:32:21 07/21/2020 10:44:55 Male sterilization [id number] Health Concerns Section Related Observation LastModified by Organization Detai ls LastModified Time None Recorded Concern Status LastModified by Organization Details LastModified Time None Recorded Advance Directives Directive None Recorded Payers Encounter Date Sequence Insurance Name Policy Number Policy Garcia Covered Member ID Garcia Member ID Guarantor Name 07/03/2020 1 [employer] [id number] Andres Guerrauis [id number] Andres Alvarez 07/18/2020 1 [employer] [id number] Andres Ng [employer]is [id number] Andres Alvarez 07/18/2020 1 [employer] [id number] Andres Ng [employer]is [id number] Andres Alvarez Notes Date Note Type Note Provider Name and Address Organization Details Recorded Time 07/03/2020 text/html HPI Notes: 44 YEAR OLD MALE HERE FOR VASECTOMY CONSULT. WITH 2 CHILDREN. Best Butt MD [address] [place] [address], [phone], [facility] 07/03/2020 14:43:21 07/18/2020 text/html HPI Notes: 44 Y/O MALE, HERE FOR VASECTOMY Best Butt MD [address] [place] [address],[address], [address], [facility] 07/19/2020 12:52:51
--- OUTSIDE RECORDS SUMMARY | 2023-12-28 11:14 | XMS_ITS | Clinical Summary ---
Author Organization [facility] Address [place], [place] [address] Care Team Providers Care Futures Trader Name Role Phone Pcp, No Primary Care Provider Unavailabl e Social History Tobacco Use Types Packs/Day Years Used Date Smoking Tobacco: Never Assessed Sex and Gender Information Value Date Recorded Sex Assigned at Not on file Gender Identity Not on file Sexual Orientation Not on file Plan of Treatment Not on file Care Teams Futures Trader Relationship Specialty Start Date End Date Pcp, No . PCP - General 03/15/14
--- OUTSIDE RECORDS SUMMARY | 2023-12-28 11:14 | XMS_ITS | Clinical Summary ---
Author Organization [facility] Address [address] [place] [address] Care Team Providers Care Editor At Large Name Role Phone Phi Steward MD Primary Care Provider [phone] Source Comments You are receiving this document as you are listed as the primary care provider,follow-up provider, or the patient has been referred to you for consultation.This is in compliance with the Medicare and[facility] EHR Incentive Program,which states Providers who transition their patient to another setting of careor provider of care or refers their patient to another provider of care shouldprovide summary care record for each transition of care or referral. [facility] Allergies No known active allergies Medications Medication Sig Dispensed Refills Start Date End Date Status traZODone (DESYREL) 50 MG tablet Take 0.5-2 Tabs by mouth at bedtime as needed for Sleep. Take 30 min. before bed. OK to give 90 day rx with 3 refills. 60 Tab 11 03/18/2016 Active Additional Information Patient not taking.Reported on 08/03/2017 sildenafil (REVATIO) 20 MG tablet Take 1 to 5 tabs qday prn. DO NOT SEND A PRIOR AUTH. FOR THIS MEDICINE. 30 Tab 7 07/12/2017 Active busPIRone (BUSPAR) 10 MG tablet Take 1 Tab by mouth two times daily as needed. 60 Tab 11 08/03/2017 Active hydroCHLOROthiazide (ORETIC) 25 MG tablet TAKE ONE TABLET BY MOUTH EVERY DAY 90 Tablet 09/18/2018 Active Active Problems Problem Noted Date Diagnosed Date Snapping scapula syndrome of right shoulder 03/14 Elevated blood pressure read ing without diagnosis of hypertension 11/05/2004 Overview: LW Onset: [id number] ; Elevated Blood Pressure Immunizations Name Administration Dates Next Due Influenza IIV4 (Quadrivalent) 0.5mL (55949) 07/15,03/18/2016 Td 01/14/2002 Tdap 03/18/2016 Social History Tobacco Use Types Packs/Day Years Used Date Smoking Tobacco: Never Smokeless Tobacco: Never Alcohol Use Standard Drinks/Week Comments Yes 0 (1 standard drink = 0.6 oz pur e alcohol) on weekends 5 drinks Sex and Gender Information Value Date Recorded Sex Assigned at Not on file Gender Identity Not on file Sexual Orientation Not on file Last Filed Vital Signs Vital Sign Reading Time Taken Comments Blood Pressure 134/88 08/03/2017 8:56 AM SIDE SHOW ENTERTAINER Pulse 80 08/03/2017 8:56 AM SIDE SHOW ENTERTAINER Temperature 36.7 ??C (98.1 ??F) 11/25/2012 4:11 PM CD T Respiratory Rate 16 11/25/2012 4:11 PM CDT Oxygen Saturation - - Inhaled Oxygen Concentration - - Weight 114.6 kg (252 lb 9.6 oz) 08/03/2017 8:56 AM SIDE SHOW ENTERTAINER Height 185.4 cm (6' 1) 08/03/2017 8:56 AM SIDE SHOW ENTERTAINER Body Mass Index 33.33 08/03/2017 8:56 AM SIDE SHOW ENTERTAINER Plan of Treatment Health Maintenance Due Date Last Done Comments Colon Cancer Screening Plan Due 1975 Hep C Screening (Preventive Services) 1975 HIV Screening (Preventive Services) 1991 HepB (1) 11/06/1994 Adult Preventive Visit 08/03/2018 8, 03/18/2016 Cholesterol 08/03/2022 08/03/2017, 04/01/2016, 11/02/2004 COVID-19 Vaccine ( - 2022-2 4 season) 2023 Influenza (#1) 2024 08/03/2017, 03/18/2016 Zoster/Shingles (1 of 2) 11/06/2025 DTaP/Tdap/Td (2 - Tdap) 03/18/2026 03/18/20 16, 01/14/2002 HepA Aged Out No longer eligi ble based on patient's age to complete this topic Hib Aged Out No longer eligi ble based on patient's age to complete this topic IPV (Polio) Aged Out No longer eligi ble based on patient's age to complete this topic MCV4 Aged Out No longer eligi ble based on patient's age to complete this topic Pneumococcal Aged Out No longer eligi ble based on patient's age to complete this topic Procedures Procedure Name Priority Date/Time Associated Diagnosis Comments LIPID PANEL & DIRECT LDL (IF NEEDED) Routine 08/03/2017 9:53 AM SIDE SHOW ENTERTAINER Hyperlipidemia, unspecified hyperlipidemia type from Last 3 Months or Most Recently Relevant to Health Maintenance Results * (ABNORMAL) Lipid Panel and Direct LDL(If Needed) (08/03/2017 9:53 AM SIDE SHOW ENTERTAINER) Cholesterol 232(H) 0 - 199 mg/dL PN SOFT Triglycerides 176(H) 4 - 149 mg/dL PN SOFT HDL Cholesterol 43 >39 mg/dL PN SOFT Cholesterol/HDL Ratio Screen 5.4 PN SOFT LDL Calculated 154(H) 19 - 130 mg/dL PN SOFT Non HDL Chol, Calc 189(H) 0 - 159 mg/dL PN SOFT Hours Fasting 12.0 PN SOFT 08/03/2017 9:53 AM SIDE SHOW ENTERTAINER 08/03/2017 12:44 PM SIDE SHOW ENTERTAINER Narrative PN SOFT - 08/03/2017 2:12 PM SIDE SHOW ENTERTAINER Performed at [address] [address] CLIA number [id number] Phi Steward MD LAB_1 PN SOFT [address] [place] [address] from Last 3 Months or Most Recently Relevant to Health Maintenance Care Teams Editor At Large Relationship Specialty Start Date End Date Phi Steward MD [address] [place] [address] [place] [address] PCP - General 09/14/10
--- NOTE | 2024-02-07 08:24 | W.PM.SLEEP ---
Sleep Study Details Details Interpreting Provider: Greg Date of Sleep Study: 12/28/23 Sleep Study Details: STUDY TYPE:? Home unattended ? BMI:? 34.4 ORDERING PROVIDER:? Greg INDICATION:? Concern about sleep apnea ? SLEEP SUMMARY:? 320 minutes monitored RESPIRATORY SUMMARY:? AHI 9.6 Low oxygen 82 22.7% of study oxygen less than 90% Snoring 80.6% PERIODIC LIMB MOVEMENTS OF SLEEP:? Not recorded CARDIAC:? Range 48-83, mean 60.4 IMPRESSION:? Mild obstructive sleep apnea with significant hypo oxygenation RECOMMENDATION: 4 obstructive sleep apnea treatment options include CPAP, dental appliance and/or airway expansion surgery. Once effective therapy is established overnight oximetry should be performed. Further cardiopulmonary evaluation may be indicated
== END 2023-12-28 11:13 | disposition home or self-care (01) ==
LOC: SLEEP 11:13
PROVIDERS: PCP Family Medicine; Visit Provider Otolaryngology
DX: G47.33 Obstructive sleep apnea (adult) (pediatric) (principal)
CPT/HCPCS: 95806

== ENCOUNTER 2024-01-24 09:59 | Outpatient (CLI) | payer OTHER, SELFPAY ==
--- OUTSIDE RECORDS SUMMARY | 2024-01-24 10:03 | XMS_ITS | Clinical Summary ---
Author Organization [facility] Address [address] [place] [address] Care Team Providers Care Speck Dyer Name Role Phone Phi Steward MD Primary Care Provider [phone] Source Comments You are receiving this document as you are listed as the primary care provider,follow-up provider, or the patient has been referred to you for consultation.This is in compliance with the Medicare and[facility] EHR Incentive Program,which states Providers who transition their patient to another setting of careor provider of care or refers their patient to another provider of care shouldprovide summary care record for each transition of care or referral. [facility] Allergies No known active allergies Medications Medication [...] diagnosis of hypertension 11/05/2004 Overview: LW Onset: [id number] ; Elevated Blood Pressure Immunizations Name Administration Dates Next Due Influenza IIV4 (Quadrivalent) 0.5mL (17746) 07/15,03/18/2016 Td 01/14/2002 Tdap 03/18/2016 Social History [...] Comments Blood Pressure 134/88 08/03/2017 8:56 AM COLD MEAT COOK Pulse 80 08/03/2017 8:56 AM COLD MEAT COOK Temperature 36.7 ??C (98.1 ??F) 11/25/2012 4:11 PM CD T Respiratory Rate 16 11/25/2012 4:11 PM CDT Oxygen Saturation - - Inhaled Oxygen Concentration - - Weight 114.6 kg (252 lb 9.6 oz) 08/03/2017 8:56 AM COLD MEAT COOK Height 185.4 cm (6' 1) 08/03/2017 8:56 AM COLD MEAT COOK Body Mass Index 33.33 08/03/2017 8:56 AM COLD MEAT COOK Plan of Treatment Health Maintenance Due Date [...] LDL (IF NEEDED) Routine 08/03/2017 9:53 AM COLD MEAT COOK Hyperlipidemia, unspecified hyperlipidemia type from Last 3 Months or Most Recently Relevant to Health Maintenance Results * (ABNORMAL) Lipid Panel and Direct LDL(If Needed) (08/03/2017 9:53 AM COLD MEAT COOK) Cholesterol 232(H) 0 - 199 mg/dL PN SOFT Triglycerides 176(H) 4 - 149 mg/dL PN SOFT HDL Cholesterol 43 >39 mg/dL PN SOFT Cholesterol/HDL Ratio Screen 5.4 PN SOFT LDL Calculated 154(H) 19 - 130 mg/dL PN SOFT Non HDL Chol, Calc 189(H) 0 - 159 mg/dL PN SOFT Hours Fasting 12.0 PN SOFT 08/03/2017 9:53 AM COLD MEAT COOK 08/03/2017 12:44 PM COLD MEAT COOK Narrative PN SOFT - 08/03/2017 2:12 PM COLD MEAT COOK Performed at [address] [address] CLIA number [id number] Phi Steward MD LAB_1 PN SOFT [address] [place] [address] from Last 3 Months or Most Recently Relevant to Health Maintenance Care Teams Speck Dyer Relationship Specialty Start Date End Date Phi Steward MD [address] [place] [address] [place] [address] PCP - General 09/14/10
--- OUTSIDE RECORDS SUMMARY | 2024-01-24 10:03 | XMS_ITS | Clinical Summary ---
Author Organization [facility] Address [place], [place] [address] Care Team Providers Care Reel Film Inspector Name Role Phone Pcp, No Primary Care Provider Unavailabl e Social History Tobacco Use Types Packs/Day Years Used Date Smoking Tobacco: Never Assessed Sex and Gender Information Value Date Recorded Sex Assigned at Not on file Gender Identity Not on file Sexual Orientation Not on file Plan of Treatment Not on file Care Teams Reel Film Inspector Relationship Specialty Start Date End Date Pcp, No . PCP - General 03/15/14
== END 2024-01-24 10:00 | disposition home or self-care (01) ==
PROVIDERS: PCP Family Medicine; Visit Provider Family Medicine
DX: I10 Essential (primary) hypertension (principal); Z13.220 Encounter for screening for lipoid disorders
CPT/HCPCS: 80048; 80061

== ENCOUNTER 2024-02-06 07:04 | Outpatient (CLI) | payer OTHER, SELFPAY ==
--- OUTSIDE RECORDS SUMMARY | 2024-02-06 07:06 | XMS_ITS | Clinical Summary ---
Author Organization [facility] Address [place], [place] [address] Care Team Providers Care Tow Driver Name Role Phone Pcp, No Primary Care Provider Unavailabl e Social History Tobacco Use Types Packs/Day Years Used Date Smoking Tobacco: Never Assessed Sex and Gender Information Value Date Recorded Sex Assigned at Not on file Gender Identity Not on file Sexual Orientation Not on file Plan of Treatment Not on file Care Teams Tow Driver Relationship Specialty Start Date End Date Pcp, No . PCP - General 03/15/14
--- OUTSIDE RECORDS SUMMARY | 2024-02-06 07:06 | XMS_ITS | Data Portability ---
Author Organization [place] [facility] Address [address] [place] [address] Care Team Providers Care Computer Hardware Designer Name Role Phone EVELYN BROWNING Primary Care [...] By Organization Details Last Modified Time 07/03/2020 [id number] VAS PROCEDURE Not available 0 07/03/2020 14:43:04 Reason for Referral None Reported. Results Created Date Observation Date Name Description Value Unit Range Abnormal Flag LastModifiedBy Organization Detail LastModifiedTime 06/24/1906/24/2022 POST VAS vasectomy procedure date 2020 Not Available [facility] [address], [place], [address], 06/24/2022 19:28:58 06/24/19 23 06/24/2022 POST VAS post vas # 1 Not Available [facility] [place] [facility] [address], [place], [address], 06/24/2022 19:28:58 06/24/19 23 06/24/2022 POST VAS post vas sperm NEGATI VE negati ve Not Available [facility] [address] [place] [address] [address], [place], [address], 06/24/2022 19:28:58 06/24/19 23 06/24/2022 POST VAS pv WBC 0-2/HP F [hpf] Not Available [facility] [address], [place], [address], 06/24/2022 19:28:58 06/24/19 23 06/24/2022 POST VAS notification RESULT S TO PROVID ER FOR REVIEW Not Available [facility] [address], [place], [address], 06/24/2022 19:28:58 Result Notes None recorded. Procedures Surgical History Date Name Laterality Status Provider Name and Address Organization Details Recorded Time 1 RU Vasectomy completed Best Butt MD [address], [place], [address], [facility] 07/19/2020 12:50:50 Vasectomy completed Phi hamilton [facility] 07/18/2020 14:46:09 Imaging Results None recorded. [...] Updated DateTime 07/03/2020 185.42 cm 31.7 kg/m2 432945.17 g Best Butt MD [address] [place] [address],[facility] [address], [place], [address] 07/03/2020 14:30:52 Date Recorded Body height Provider Name an d Address Organization Details Last Updated DateTime 07/18/2020 185.42 cm Phi Pack [facility] 0 07/18/2020 14:45:56 Social History Question Answer Notes LastModified by Organizat ion Details LastModified Time Tobacco Smoking Status Never Smoker Best Butt MD [address] [place] [address],[address], [address] 07/03/2020 14:31:57 What Was The Date Of Your Most Recent Tobacco Screening? 07/03/2020 Information not available 07/03/2020 Sex: Unknown Functional Status None recorded. Mental Status None recorded. Family History Nothing Reported. Medical History Condition Response Other N High Blood Pressure Y Kidney Stones N Depression N Lung Disease N GERD/Acid Reflux N Sexually Transmitted Infection N Cancer N High Cholesterol N Diabetes N Bleeding Disorder N Heart Disease N Past Encounters Encounter ID Performer Location Encounter Start Date Encounter Closed Date Diagnosis/Indication Diagnosis SNOMED-CT Code [id number] MD BERE [facility] [address] [place] [address] 07/03/2020 14:21:56 07/03/2020 16:19:46 Vasectomy requested [id number] Phi BLACKBURN_[facility] [address] [place] [id number] 07/18/2020 14:32:01 07/22/2020 03:53:01 [id number] Best Butt MD [facility] [address] [place] [address] 07/18/2020 14:32:21 07/21/2020 10:44:55 Male sterilization [id number] Health Concerns Section Related Observation LastModified by Organization Detai ls LastModified Time None Recorded Concern Status LastModified by Organization Details LastModified Time None Recorded Advance Directives Directive None Recorded Payers Encounter Date Sequence Insurance Name Policy Number Policy Garcia Covered Member ID Garcia Member ID Guarantor Name 07/03/2020 1 PREFERREDONE [id number] Andres Guerrauis [id number] Andres Alvarez 07/18/2020 1 PREFERREDONE [id number] Andres Ng Gruis [id number] Andres Alvarez 07/18/2020 1 PREFERREDONE [id number] Andres Ng Gruis [id number] Andres Alvarez Notes Date Note Type Note Provider Name and Address Organization Details Recorded Time 07/03/2020 text/html HPI Notes: 44 YEAR OLD MALE HERE FOR VASECTOMY CONSULT. WITH 2 CHILDREN. Best Butt MD [address] [place] [address], [address], [facility] 07/03/2020 14:43:21 07/18/2020 text/html HPI Notes: 44 Y/O MALE, HERE FOR VASECTOMY Best Butt MD [address] [place] [address],[address], [address], [facility] 07/19/2020 12:52:51
--- OUTSIDE RECORDS SUMMARY | 2024-02-06 07:06 | XMS_ITS | Clinical Summary ---
Author Organization [facility] Address [address] [place] [address] Care Team Providers Care Barrel Cleaner Name Role Phone Phi Steward MD Primary Care Provider [phone] Source Comments You are receiving this document as you are listed as the primary care provider,follow-up provider, or the patient has been referred to you for consultation.This is in compliance with the Medicare and[facility] E[facility] Incentive Program,which states Providers who transition their patient to another setting of careor provider of care or refers their patient to another provider of care shouldprovide summary care record for each transition of care or referral. [facility] Allergies No known active allergies Medications Medication [...] read ing without diagnosis of hypertension 11/05/2004 Overview (02/02/2017): LW Onset: [id number] ; Elevated Blood Pressure Immunizations Name Administration Dates Next Due Influenza IIV4 (Quadrivalent) 0.5mL (72190) 07/15,03/18/2016 Td 01/14/2002 Tdap 03/18/2016 Social History [...] Comments Blood Pressure 134/88 08/03/2017 8:56 AM BAKERY DECORATOR Pulse 80 08/03/2017 8:56 AM BAKERY DECORATOR Temperature 36.7 ??C (98.1 ??F) 11/25/2012 4:11 PM CD T Respiratory Rate 16 11/25/2012 4:11 PM CDT Oxygen Saturation - - Inhaled Oxygen Concentration - - Weight 114.6 kg (252 lb 9.6 oz) 08/03/2017 8:56 AM BAKERY DECORATOR Height 185.4 cm (6' 1) 08/03/2017 8:56 AM BAKERY DECORATOR Body Mass Index 33.33 08/03/2017 8:56 AM BAKERY DECORATOR Plan of Treatment Health Maintenance Due Date [...] LDL (IF NEEDED) Routine 08/03/2017 9:53 AM BAKERY DECORATOR Hyperlipidemia, unspecified hyperlipidemia type from Last 3 Months or Most Recently Relevant to Health Maintenance Results * (ABNORMAL) Lipid Panel and Direct LDL(If Needed) (08/03/2017 9:53 AM BAKERY DECORATOR) Cholesterol 232(H) 0 - 199 mg/dL PN SOFT Triglycerides 176(H) 4 - 149 mg/dL PN SOFT HDL Cholesterol 43 >39 mg/dL PN SOFT Cholesterol/HDL Ratio Screen 5.4 PN SOFT LDL Calculated 154(H) 19 - 130 mg/dL PN SOFT Non HDL Chol, Calc 189(H) 0 - 159 mg/dL PN SOFT Hours Fasting 12.0 PN SOFT 08/03/2017 9:53 AM BAKERY DECORATOR 08/03/2017 12:44 PM BAKERY DECORATOR Narrative PN SOFT - 08/03/2017 2:12 PM BAKERY DECORATOR Performed at [facility] [place] [address] CLIA number [id number] Phi Steward MD LAB_1 PN SOFT [address] [place] [address] from Last 3 Months or Most Recently Relevant to Health Maintenance Care Teams Barrel Cleaner Relationship Specialty Start Date End Date Phi Steward MD [address] [place] [address] PCP - General 09/14/10
--- NOTE | 2024-02-06 07:15 | CRLHL7_ITS ---
For Patients: As a result of the Century Cures Act, medical imaging exams and procedure reports are released immediately into your electronic medical record. You may view this report before your referring provider. If you have questions, please contact your health care provider. Indication Radiculopathy. Low back pain. TECHNIQUE: Multiplanar multisequence noncontrast MR images of lumbar spine. COMPARISON: None. FINDINGS: Mild leftward lumbar curvature. The lumbar lordosis is mildly straightened. Vertebral heights preserved. No acute fracture. No T1 hypointense lesions. Normal conus terminates at L1. T12-L1: No spinal canal or neural foraminal narrowing. L1-2: Mild degeneration. Shallow disc bulge. No spinal canal or neural foraminal narrowing. L2-3: Trace retrolisthesis. Moderate disc degeneration. Shallow disc bulge. Dorsal annular fissure. Small caudally migrated left subarticular disc extrusion measuring 3 mm in short axis. Minimal spinal canal narrowing. Mild to moderate left lateral recess narrowing. No neural foraminal narrowing. L3-4: Moderate disc degeneration. Shallow posterior disc bulge. Mild facet arthropathy. No spinal canal or neural foraminal narrowing. L4-5: Grade 1 anterolisthesis. Moderate disc degeneration. Posterior disc bulge. Moderately advanced right and mild left facet arthropathy. Mild spinal canal and lateral recess narrowing. Mild to moderate right without left neural foraminal narrowing. L5-S1: Gonu-qz-tdfglbky disc degeneration. Left eccentric disc bulge. Kpxk-dh-zrhphhgt facet arthropathy. No spinal canal narrowing. Moderate left without right neural foraminal narrowing. IMPRESSION: 1. Multilevel lumbar spondylosis without spinal canal stenosis. 2. At L2-3, caudally migrated left subarticular disc extrusion xzag-lc-yjqjowsbsq narrows the left lateral recess. 3. At L4-5, ituv-pk-gazpoklm right neural foraminal narrowing. Moderately advanced right facet arthropathy. 4. At L5-S1, moderate left neural foraminal narrowing. Dictated by Karsten Burgos MD @ 02/06/2024 8:30:49 AM (Electronically Signed)
== END 2024-02-06 07:05 | disposition home or self-care (01) ==
LOC: MRI 07:04
PROVIDERS: PCP Family Medicine; Visit Provider Family Medicine
DX: M54.50 Low back pain, unspecified (principal); M47.896 Other spondylosis, lumbar region; M51.26 Other intervertebral disc displacement, lumbar region; M51.27 Other intervertebral disc displacement, lumbosacral region; M54.16 Radiculopathy, lumbar region
CPT/HCPCS: 72148

== ENCOUNTER 2025-04-25 11:13 | Outpatient (CLI) | payer OTHER, SELFPAY ==
--- NOTE | 2025-04-25 11:15 | CRLHL7_ITS ---
For Patients: As a result of the Cures Act, medical imaging exams and procedure reports are released immediately into your electronic medical record. You may view this report before your referring provider. If you have questions, please contact your health care provider. INDICATION: Abdominal pain. TECHNIQUE: Ultrasound abdomen complete. Sonographic images of the entire abdomen were obtained using pettit-scale and color Doppler. COMPARISON: CT abdomen and pelvis 04/15/2025. FINDINGS: Liver: Normal in size, measures 16.1 cm. Normal echotexture. No masses. No intrahepatic biliary dilatation. Gallbladder: Multiple mobile shadowing gallstones. Normal wall thickness of 3 mm. No pericholecystic fluid. Common bile duct: 3 mm. Pancreas: Head and distal tail are obscured. Remainder is normal. Spleen: Normal in size and appearance. Kidneys: Both kidneys are normal in size. Normal echotexture and cortex. No suspicious masses, stones, or hydronephrosis. Mild left pelviectasis similar to recent comparison CT. Vasculature: Proximal abdominal aorta, iliac vessels, main portal vein, and IVC are normal in caliber. Normal hepatopetal flow in the main portal vein. IMPRESSION: Cholelithiasis. No sonographic evidence of acute cholecystitis. Dictated by Tee Bernstein MD @ 04/26/2025 9:03:56 AM (Electronically Signed)
== END 2025-04-25 11:14 | disposition home or self-care (01) ==
LOC: US 11:14
PROVIDERS: PCP Family Medicine; Visit Provider Family Medicine
DX: R10.9 Unspecified abdominal pain (principal); K80.20 Calculus of gallbladder without cholecystitis without obstruction
CPT/HCPCS: 76700

== ENCOUNTER 2025-05-07 09:44 | Day surgery (SDC) | payer OTHER, SELFPAY ==
[2025-05-07] VITALS (14 sets, daily range): BP systolic 124–151; BP diastolic 67–96; PULSE 53–67; RESP 14–16; TEMP 36.1–36.6; O2SAT 91–97; BMI 32.8
[2025-05-07] MEDS: LACTATED RINGERS 1000 ML 1,000 ML 100 ML IV ×2 (09:50→12:18)
[2025-05-07] MEDS: SODIUM CHLORIDE 0.9 % (FLUSH) 10 ML SYRINGE IVF (10:04)
--- NOTE | 2025-05-07 10:56 | W.PM.H&PU ---
History & Physical Update History & Physical Update H&P Reviewed and patient assessed: No changes noted
[2025-05-07] MEDS: BUPIVACAINE 0.5% 30 ML INJECTION (12:40)
--- NOTE | 2025-05-07 12:43 | PM.GSPRC ---
Operative Note Date of procedure: 05/07/25 Pre-op diagnosis: Chronic cholecystitis Post-op diagnosis: Same Type of Procedure: Laparoscopic cholecystectomy Indications: Patient is a 49-year-old male who presented to clinic with abdominal pain. Clinical workup and symptoms were consistent with chronic cholecystitis. Risks and benefits of operative intervention were discussed at length with the patient. Risks included but was not limited to: Bleeding, infection, risk of damage to surrounding structures, possible need for additional procedures, possible need to convert to an open operation and postoperative complications such as pneumonia, pulmonary emboli or MD. All questions and concerns were addressed with the patient agreeing to proceed. Procedure Description: After discussing the risks and benefits of the procedure, the patient signed informed consent.? The operative site was marked and the patient was brought to the operating room and placed on the operating table in supine position.? Care was taken to pad the patient's pressure points.?? The patient was then intubated by anesthesia.?? The operative site was then prepped and draped in the usual sterile fashion.? A time-out was then performed. Entrance to the abdomen was gained via a 5 mm Visiport in the left upper quadrant. The abdomen was insufflated and briefly surveyed for signs of injury. There was none. 11 mm umbilical port was placed as well as 2 working ports along the right costal margin. Patient was then placed in reverse Trendelenburg position with the right side up. The gallbladder fundus was grasped and retracted cephalad. [A small amount of dissection was needed to free omental adhesions from the gallbladder.] The infundibulum was grasped. A combination of hook cautery and blunt dissection was used to carefully dissect out the cystic duct and artery until they could clearly be seen entering the gallbladder without any intervening structures. The gallbladder was dissected off the cystic plate to achieve the critical view. Once this was achieved the cystic duct and artery were each clipped with 2 clips proximally and 1 clip distally and transected with the scissors. The gallbladder was then taken off of the liver bed. And removed from the abdomen using an Endo-Catch bag. The gallbladder bed was surveyed for hemostasis, which was excellent. The umbilical port fascia was closed with 0 Vicryl. A 2nd look in the abdomen was performed with the remaining ports removed under direct vision. The left upper quadrant port was used to evacuate the CO2 insufflation. Additional local anesthetic was instilled at each port site. The skin was closed with absorbable subcuticular suture. Sterile dressings were applied. Instrument sponge and needle counts were correct at the end of the case. The patient was then woken and transferred to the PACU in stable condition. Findings: Evidence of chronic inflammation, gallstones within the gallbladder Anesthesia: OCTAVIA Surgeon: Brittny Holliday MD Estimated blood loss (mL): 5 Specimen: Gallbladder Condition: stable Disposition: PACU
--- NOTE | 2025-05-07 12:47 | P.ANES_ITS ---
Anesthesia Charges Start Date/Time Anesthesia Start Date: 05/07/25 Anesthesia Start Time: 11:32 Stop Date/Time Anesthesia Stop Date: 05/07/25 Anesthesia Stop Time: 12:59 Coding CPT Codes CPT Codes: ANESTH SURG UPPER ABDOMEN - 15474 ([id number]) P2 - PATIENT W/MILD SYST DISEASE, QK - COLLECTION OFFICER 2-4 CNCRNT ANES PROC, QX - RN CASE MGR SVC W/ MD MED DIRECTION
--- NOTE | 2025-05-07 12:47 | W.ANESCHARGE ---
Anesthesia Charges Start Date/Time Anesthesia Start Date: 05/07/25 Anesthesia Start Time: 11:32 Stop Date/Time Anesthesia Stop Date: 05/07/25 Anesthesia Stop Time: 12:59 Coding CPT Codes CPT Codes: ANESTH SURG UPPER ABDOMEN - 97026 ([id number]) P2 - PATIENT W/MILD SYST DISEASE, QK - CAMPAIGN MANAGER 2-4 CNCRNT ANES PROC, QX - CAFETERIA COOK SVC W/ MD MED DIRECTION
--- NOTE | 2025-05-07 13:04 | P.ANES_ITS ---
Anesthesia Charges Start Date/Time Anesthesia Start Date: 05/07/25 Anesthesia Start Time: 11:32 Stop Date/Time Anesthesia Stop Date: 05/07/25 Anesthesia Stop Time: 12:59 Coding CPT Codes CPT Codes: ANESTH SURG UPPER ABDOMEN - 86022 ([id number]) P2 - PATIENT W/MILD SYST DISEASE, QK - MINE WEDGE SAWYER 2-4 CNCRNT ANES PROC, QX - ORTHO RN SVC W/ MD MED DIRECTION
--- NOTE | 2025-05-07 13:04 | W.ANESCHARGE ---
Anesthesia Charges Start Date/Time Anesthesia Start Date: 05/07/25 Anesthesia Start Time: 11:32 Stop Date/Time Anesthesia Stop Date: 05/07/25 Anesthesia Stop Time: 12:59 Coding CPT Codes CPT Codes: ANESTH SURG UPPER ABDOMEN - 10776 ([id number]) P2 - PATIENT W/MILD SYST DISEASE, QK - CHILD CARE COUNSELOR 2-4 CNCRNT ANES PROC, QX - VERTICA ARCHITECT SVC W/ MD MED DIRECTION
[2025-05-07] MEDS: HYDROCODONE-ACETAMIN 5-325 MG 1 TAB PO (13:40)
== END 2025-05-07 15:03 | disposition home or self-care (01) ==
PROVIDERS: PCP Family Medicine; Visit Provider Surgery
PROC: 0FT44ZZ Resection of Gallbladder, Percutaneous Endoscopic Approach (ICD-10-PCS; CPT 47562; principal; 2025-05-07 11:15)
DX: K80.10 Calculus of gallbladder with chronic cholecystitis without obstruction (principal)
CPT/HCPCS: 47562; 00790; A9270; J0665; J0690; J1100; J1171; J1630; J1885; J2250; J2371; J2405; J2704; J2710; J2765; J3010; J3490; J7120